=== PATIENT | female | born 1965 | race Caucasian/White ===

== ENCOUNTER 2016-04-12 06:25 | Day surgery (SDC) | payer BC, MEDICARE ==
[2016-04-07 10:34] VITALS: BMI 38.1
--- NOTE | 2016-04-12 06:08 | P.GSHP ---
History of Present Illness H&P Date: 04/12/16 CHIEF COMPLAINT: Abdominal wall subcutaneous tumor, lower abdomen. HISTORY OF PRESENT ILLNESS: Geetha Ruffin is a 50-year-old female who comes in with a tumor of the lower abdomen for several months. She reports discomfort along the site and presents for excision. PAST MEDICAL HISTORY: Please see list. PAST SURGICAL HISTORY: Please see list. MEDICATIONS: Please see list. ALLERGIES: Please see list. SOCIAL HISTORY: No illicit drug use FAMILY HISTORY: No reports of Crohn disease or ulcerative colitis. REVIEW OF ORGAN SYSTEMS: CONSTITUTIONAL: No reports of fevers or chills. GI: Denies any blood in stools or constipation. PHYSICAL EXAM: VITAL SIGNS: Stable. ABDOMEN: Palpable lower abdominal tumor swelling noted. No palpable incisional hernias. GENERAL: Well-developed female in no acute distress. MUSCULOSKELETAL: No bilateral lower extremity edema. CARDIOVASCULAR: Regular rate and rhythm. Palpable 2+ pulses. HEENT: No scleral icterus. Extraocular movements grossly intact. Moist buccal mucosa. NECK: Supple without lymphadenopathy. CHEST: Unlabored respirations. Equal bilateral excursions. NEURO: No focal or lateralizing signs. Cranial nerves II to XII grossly intact. PSYCH: Appropriate affect. Alert and oriented to person, place, and time. ASSESSMENT: 1. Abdominal wall tumor. 2. Body mass index reduced from 62.5 to 38.1. 3. Status post sleeve gastrectomy. 4. Multiple sclerosis. 5. History of obstructive sleep apnea. 6. Status post massive weight loss of 155 pounds. 7. Adrenal insufficiency. PLAN: 1. Benefits and risks of abdominal wall tumor excision was described at length. Risks including bleeding, infection, need for further surgery, cosmetic deformity were reviewed. 2. DVT prophylaxis. 3. Antibiotic prophylaxis. 4. She has history of adrenal insufficiency and will continue with her corticosteroids. She is aware that additional corticosteroids may impair wound healing including increase risk for infection. Past Medical History Past Medical History: Asthma, CVA/TIA, Eye Disorder, Hyperlipidemia, Neurologic Disorder, Osteoarthritis (OA), Skin Disorder, Thyroid Disorder Additional Past Medical History / Comment(s): Sick sinus syndrome, MS, DDD, neuropathy, stroke 2002-slight left sided weakness, CHRONIC PAIN LOWER BACK, HIPS, LEGS, psoriasis to scalp and face, Meniere's Disease, can only see shadows rt eye, intermittent double vision left eye stated has "optic neuritis" , adrenal insufficiency. History of Any Multi-Drug Resistant Organisms: None Reported Past Surgical History: Bariatric Surgery, Cholecystectomy, Orthopedic Surgery, Pacemaker Additional Past Surgical History / Comment(s): Pin in ankle (removed), battery in pacemaker replaced 2009, LAPAROSCOPIC GASTRIC SLEEVE WITH LYSIS OF ADHESION, panniculectomy/ventral hernia repair. Past Anesthesia/Blood Transfusion Reactions: Motion Sickness Additional Past Anesthesia/Blood Transfusion Reaction / Comment(s): no hx blood transfusuion Type of Cardiac Device: Permanent Pacemaker Device Placement Date:: 2001 Past Psychological History: Anxiety, Depression Smoking Status: Never smoker Past Alcohol Use History: None Reported Past Drug Use History: None Reported - Past Family History Mother Family Medical History: Hypertension, Thyroid Disorder Daughter(s) Family Medical History: Deep Vein Thrombosis (DVT), Seizure Disorder Additional Family Medical History / Comment(s): crohn's disease Father History Unknown: Yes Family Medical History: Unable to Obtain Sister(s) Family Medical History: Hypertension Additional Family Medical History / Comment(s): prolonged QT syndrome,crohn's disease Brother(s) Family Medical History: Hypertension Son(s) Family Medical History: No Reported History Additional Family Medical History / Comment(s): ITP Medications and Allergies Home Medications Medication Instructions Recorded Confirmed Type Baclofen [Lioresal] 20 mg PO QID 11/01/13 04/07/16 History Levothyroxine Sodium [Synthroid] 50 mcg PO QAM 11/01/13 04/07/16 History Montelukast [Singulair] 10 mg PO HS 12/19/13 04/07/16 History Fluticasone Nasal [place] [Flonase 2 sprays EA NOSTRIL DAILY 02/14/15 04/07/16 History Nasal [place]] Melatonin 10 mg PO HS 02/14/15 04/07/16 History Multivitamins, Thera [Multivitamin] 1 tab PO DAILY 02/14/15 04/07/16 History rOPINIRole HCL [Requip] 0.25 mg PO BID@1200,2000 02/14/15 04/07/16 History Clopidogrel [Plavix] 75 mg PO DAILY 09/25/15 04/07/16 History Ranitidine HCl 150 mg PO BID 09/25/15 04/07/16 History oxyCODONE-APAP 10-325MG [Percocet 1 - 2 tab PO TID PRN 09/25/15 04/07/16 History 10-325 mg] Cetirizine HCl [Zyrtec] 10 mg PO DAILY 11/14/15 04/07/16 History Magnesium Oxide [Mag-Ox] 400 mg PO DAILY 11/14/15 04/07/16 History ALPRAZolam [Alprazolam] 0.5 mg PO TID 11/24/15 04/07/16 History DULoxetine HCL [Duloxetine HCl] 30 mg PO HS 11/24/15 04/07/16 History Vitamin A 10,000 unit PO HS 11/24/15 04/07/16 History fentaNYL [fentaNYL 50 MCG/HR] 1 patch TRANSDERM Q72H 11/24/15 04/07/16 History Biotin 1,000 mcg PO BID 12/06/15 04/07/16 History Ergocalciferol [Vitamin D2 50,000 unit PO SERRANO 12/06/15 04/07/16 History (DRISDOL)] Lactulose 10 gm PO DAILY 12/06/15 04/07/16 History Hydrocortisone [Cortef] 10 mg PO 1400 04/07/16 04/07/16 History Hydrocortisone [Cortef] 15 mg PO QAM 04/07/16 04/07/16 History Allergies Allergy/AdvReac Type Severity Reaction Status Date / Time amlodipine besylate Allergy Swelling Verified 04/07/16 10:05 [From Norvasc] glatiramer acetate Allergy HIGH Verified 04/07/16 10:05 [From Copaxone] FEVER. PSYCHOTIC EPISODE PER PT,MENINGITIS zolpidem tartrate Allergy FELT LIKE Verified 04/07/16 10:05 [From Ambien] SPIDERS CRAWLING ON HER SKIN vancomycin AdvReac Severe Hypotension Verified 04/07/16 11:21
[~2016-04-12 06:25] MED LIST: DEXAMETHASONE SOD PHOSPHATE 10 MG/ML 1 ML VIAL IV ONE; HEPARIN SODIUM,PORCINE 5,000 UNIT/ML 1 ML VIAL SQ ONE; LACTATED RINGERS 1,000 ML IV SCH; LIDOCAINE 1% 20 ML VIAL (10MG/ML) FOR IV START INTRADERMA PRN; ONDANSETRON 4 MG/2 ML VIAL IVP ONE; Pre Op ABX Message 1 EACH MISC MISCELLANE ONE; SCOPOLAMINE 1.5MG/72HR PATCH TRANSDERM ONE; ceFAZolin 2 GM in SODIUM CHLORIDE 0.9% 100 ML IVPB ONE
[2016-04-12] MEDS: BUPIVACAINE LIPOSOME/PF 1.3% 20 ML, BUPIVACAIN-EPI 0.5%-1:200,000 25 ML, SODIUM CHLORID... MISCELLANE ONE ×6 (07:11→07:48)
[2016-04-12 07:25] VITALS: RESP 16
[2016-04-12] MEDS ORDERED: LIDOCAINE 1% 20 ML VIAL (10MG/ML) FOR IV START INTRADERMA ONE (07:25)
[2016-04-12] MEDS ORDERED: HYDROCORTISONE SUCCINATE 100 MG/2 ML VIAL IV ONE (07:29)
[2016-04-12] MEDS ORDERED: ePHEDrine 50 MG/ML 1 ML AMP ONE (07:30)
[2016-04-12] MEDS ORDERED: LIDOCAINE 1% INJ 10MG/ML (20 ML MDV) ONE (07:30)
[2016-04-12] MEDS ORDERED: MIDAZOLAM 2 MG/2 ML VIAL ONE (07:30)
[2016-04-12] MEDS ORDERED: ESMOLOL 100 MG/10 ML VIAL ONE (07:30)
[2016-04-12] MEDS ORDERED: SUCCINYLCHOLINE CHLORIDE 100 MG/5 ML SYR IV ONE (07:30)
[2016-04-12] MEDS ORDERED: fentaNYL (PF) 50 MCG/ML 2 ML AMP ONE (07:30)
[2016-04-12] MEDS ORDERED: PROPOFOL 10 MG/ML 20 ML VIAL IV ONE (07:30)
[2016-04-12 07:33] LABS: Glucose,Whole Blood 77 mg/dL (75-99)
--- NOTE | 2016-04-12 08:49 | P.PCN ---
Date of Procedure: 04/12/16 Preoperative Diagnosis: Abdominal wall tumor, lower abdomen Postoperative Diagnosis: Same, 22 x 6 cm Procedure(s) Performed: Excision of lower abdominal wall tumor, complex closure of 22 x 6 cm defect abdominal wall Anesthesia: MARGIEA, local Surgeon: Mariama Amato Estimated Blood Loss (ml): 50 Pathology: other (Abdominal wall tumor 2) Condition: stable Disposition: same day Operative Findings: Abdominal wall tumor, subcutaneous excised with 22 x 6 cm defect closed with complex closure Plan - Discharge Summary New Discharge Prescriptions: Hydrocodone/Acetaminophen [[place] 5-325] 1 - 2 each PO Q6HR PRN #60 tab PRN Reason: Pain Discharge Medication List Baclofen [Lioresal] 20 mg PO QID 11/01/13 [History] Levothyroxine Sodium [Synthroid] 50 mcg PO QAM 11/01/13 [History] Montelukast [Singulair] 10 mg PO HS 12/19/13 [History] Fluticasone Nasal [place] [Flonase Nasal [place]] 2 sprays EA NOSTRIL DAILY [History] Melatonin 10 mg PO HS 02/14/15 [History] Multivitamins, Thera [Multivitamin] 1 tab PO DAILY 02/14/15 [History] rOPINIRole HCL [Requip] 0.25 mg PO BID@1200,2000 02/14/15 [History] Clopidogrel [Plavix] 75 mg PO DAILY 09/25/15 [History] Ranitidine HCl 150 mg PO BID 09/25/15 [History] oxyCODONE-APAP 10-325MG [Percocet 10-325 mg] 1 - 2 tab PO TID PRN 09/25/15 [ History] Cetirizine HCl [Zyrtec] 10 mg PO DAILY 11/14/15 [History] Magnesium Oxide [Mag-Ox] 400 mg PO DAILY 11/14/15 [History] ALPRAZolam [Alprazolam] 0.5 mg PO TID 11/24/15 [History] DULoxetine HCL [Duloxetine HCl] 30 mg PO HS 11/24/15 [History] Vitamin A 10,000 unit PO HS 11/24/15 [History] fentaNYL [fentaNYL 50 MCG/HR] 1 patch TRANSDERM Q72H 11/24/15 [History] Biotin 1,000 mcg PO BID 12/06/15 [History] Ergocalciferol [Vitamin D2 (DRISDOL)] 50,000 unit PO SERRANO 12/06/15 [History] Lactulose 10 gm PO DAILY 12/06/15 [History] Hydrocortisone [Cortef] 10 mg PO 1400 04/07/16 [History] Hydrocortisone [Cortef] 15 mg PO QAM 04/07/16 [History] Hydrocodone/Acetaminophen [[place] 5-325] 1 - 2 each PO Q6HR PRN #60 tab 04/12/16 [Rx] Follow up Appointment(s)/Referral(s): Mariama Aamto MD [STAFF PHYSICIAN] - 04/14/16 ([facility]) Patient Instructions/Handouts: Abdominal Binder (DC) Activity/Diet/Wound Care/Special Instructions: No lifting over pounds in 4 weeks. Please ambulate with hips flexed. Do not remove dressings. Sponge bath only. Abdominal binder at all times. Discharge Disposition: HOME SELF-CARE
[2016-04-12] MEDS ORDERED: ONDANSETRON 4 MG/2 ML VIAL IVP PRN (08:54)
[2016-04-12] MEDS ORDERED: HYDROcodone/APAP 5-325MG 1 EACH TAB PO PRN (08:54)
[2016-04-12] MEDS ORDERED: NALOXONE 0.4 MG/ML 1 ML VIAL IV PRN (08:54)
[2016-04-12 08:55] VITALS: TEMP 97
[2016-04-12] MEDS: HYDROmorphone 1 MG/ML 1 ML SYRINGE IVP PRN ×4 (09:12→10:03)
[2016-04-12 11:52] VITALS: BP 100/56; PULSE 60
--- NOTE | 2016-04-12 21:15 | OP ---
DATE OF SERVICE: 04/12/2016 SURGEON: FAVIO ALBRECHT MD ATTENDANT [facility] PREOPERATIVE DIAGNOSES: 1. Lower left abdominal wall tumor. 2. Lower left abdominal wall swelling. 3. Body mass index reduced from 62.5 to 38.1. 4. Status post sleeve gastrectomy. 5. Multiple sclerosis. 6. Status post massive weight loss of 155 pounds. 7. Adrenal insufficiency. POSTOPERATIVE DIAGNOSES: 1. Lower left abdominal wall tumor. 2. Lower left abdominal wall swelling. 3. Body mass index reduced from 62.5 to 38.1. 4. Status post sleeve gastrectomy. 5. Multiple sclerosis. 6. Status post massive weight loss of 155 pounds. 7. Adrenal insufficiency. 8. Complex defect abdominal wall defect, 22 x 6 cm, subcutaneous. OPERATION: 1. Excision of abdominal wall tumor, left lower abdomen. 2. Complex closure of abdominal wall defect 22 x 6 cm. ANESTHESIA: General with 85 mL Exparel with Sensorcaine, epinephrine, normal saline mixture. ESTIMATED BLOOD LOSS: 50 mL. SPECIMENS REMOVED: Abdominal wall tumor x2. COMPLICATIONS: None. OPERATIVE FINDINGS: 1. Subcutaneous abdominal wall tumor of the left lower abdomen excised to the fascia. 2. Complex wound closure with moderate undermining performed for 22 x 6-cm defect. INDICATIONS: Geetha Ruffin is a 50-year-old female who had developed several subcutaneous abdominal tumors of the left lower abdomen, which caused increased pain and swelling. She has sought surgical intervention. Benefits and risks of surgical intervention were described including cosmetic deformity, flap failure, recurrence and bleeding, infection. Informed consent was obtained. DESCRIPTION OF PROCEDURE: The patient was brought to the operating room, laid in supine position. After general induction, the abdomen had been prepped and draped in standard sterile fashion. She also received stress doses of hydrocortisone for underlying history of adrenal insufficiency. Prior to incision, a timeout protocol was confirmed with the surgical team regarding the patient's name, including procedures to be performed. Sequential compression devices were also placed for DVT prophylaxis. The left lower abdominal wall tumor, subcutaneous, was marked in the pre- anesthesia area with indelible marker. Next, the skin was localized widely using Exparel and normal saline mixture to minimize postoperative pain. A #10 blade was deepened to the subcutaneous tissue, incorporating the tumors. Next, for the deep subcutaneous tissue, the electro- Bovie cautery was used to excise the tumors. The subcutaneous tumors were found to be to the level of the fascia and excised in total and passed off for further pathological analysis. Next, for complete closure, the defect had moderate undermining. Using 0 Vicryl for the deep dermis, including the superficial fascial system, 0 Vicryls were placed. Additional 0 Vicryl was placed for the deep dermis for complete closure of the defect. Next, 3-0 Monocryl in a running subcuticular fashion was placed. A final layer and 4th layer using Dermabond tape and Dermabond liquid was applied. The patient was placed in flexed position of 30 degrees to allow for complete closure of the defect as well. The skin was cleansed. Once the Dermabond had dried, Aquacel Ag tape was placed. An abdominal binder was also placed. The patient had tolerated the procedure well. The patient is transferred onto a stretcher with abdominal binder placed and in flexed position at the hips. At the end of the procedure, needle, sponge and instrument count was verified correct. The patient had tolerated the procedure well. Intraoperative findings were discussed with the patient's family who were pleased with level of care. CELI
== END 2016-04-12 12:22 | disposition home or self-care (01) ==
LOC: OR 06:25
PROVIDERS: ATTEND Surgery Plastic and Reconstructive Surgery
DX: M79.89 Other specified soft tissue disorders (principal); Z98.84 Bariatric surgery status; J45.909 Unspecified asthma, uncomplicated; M19.90 Unspecified osteoarthritis, unspecified site; E07.9 Disorder of thyroid, unspecified; G35 Multiple sclerosis; G62.9 Polyneuropathy, unspecified; G89.29 Other chronic pain; M54.5 Low back pain; M25.559 Pain in unspecified hip; M79.606 Pain in leg, unspecified; E27.40 Unspecified adrenocortical insufficiency; H81.09 Meniere's disease, unspecified ear; I69.854 Hemiplegia and hemiparesis following other cerebrovascular disease affecting left non-dominant side; Z95.0 Presence of cardiac pacemaker; I49.5 Sick sinus syndrome; K21.9 Gastro-esophageal reflux disease without esophagitis; Z79.02 Long term (current) use of antithrombotics/antiplatelets; Z79.891 Long term (current) use of opiate analgesic; Z79.51 Long term (current) use of inhaled steroids; Z79.52 Long term (current) use of systemic steroids; Z79.899 Other long term (current) drug therapy; Z88.1 Allergy status to other antibiotic agents; Z88.8 Allergy status to other drugs, medicaments and biological substances
CPT/HCPCS: 13101; 13102 ×3; 81025; 88305; J2250; J1644; J1100; J1720; J0690; J2405; J2001; J3010; J1170; J0330; C9290; J2704

== ENCOUNTER → 2016-04-14 | Outpatient (CLI) | payer MEDICARE ==
[2016-04-14 15:45] VITALS: BP 130/81; PULSE 71; RESP 16; TEMP 97.9; BMI 39.3
--- NOTE | 2016-04-18 17:36 | P.PN ---
Progress Note - Text DATE OF SERVICE: 04/14/2016 CHIEF COMPLAINT: Followup excision of neoplasm of the skin. HISTORY OF PRESENT ILLNESS: Geetha Ruffin is a 50-year-old female with significant history of panniculectomy performed on 01/07/2014. She is over 2 years out. For her height of 5 feet 5 inches, her ideal body is 149 pounds. Her highest weight was 375 pounds. Today she comes in with a 16- pound weight gain in 2 months, up to 236 pounds. Her total lifetime weight loss is 139 pounds. Percent excess weight loss is 62%. Body mass index has been reduced from 62.5 to 39.3. Total BMI point reduction is 23.2. She just recently had excision of a neoplasm along the left lower abdomen and pelvis. No reports of fevers or chills. She does take steroids for her history of adrenal insufficiency. Her pain is well controlled. She is more concerned about her weight gain, as she has been started on chronic doses of steroids. PHYSICAL EXAM: VITAL SIGNS: 97.9, 71, 16, 130/81, 5 feet 5 inches, 236 pounds. Body mass index 39.3. GENERAL: Well-developed female no acute distress. ABDOMEN: Incisional dressing was discontinued. No signs of flap failure, infection or cellulitis. Dermabond tape was still intact. Abdominal binder was repositioned and placed. MUSCULOSKELETAL: No bilateral lower extremity edema. CARDIOVASCULAR: Regular rate and rhythm. Palpable 2+ pulses. HEENT: No scleral icterus. Extraocular movements grossly intact. Moist buccal mucosa. NECK: Supple without lymphadenopathy. CHEST: Unlabored respirations. Equal bilateral excursions. NEURO: No focal or lateralizing signs. Cranial nerves II to XII grossly intact. PSYCH: Appropriate affect. Alert and oriented to person, place, and time. ASSESSMENT: 1. Neoplasm along the skin, now resolved. 2. Morbid obesity due to excess caloric intake. 3. Body mass index reduced from 62.5 to 39.3. 4. Status post sleeve gastrectomy. 5. Multiple sclerosis. 6. Status post massive weight loss of 139 pounds. 7. Adrenal insufficiency. PLAN: 1. Her pathology report came back consistent with nodular lesions of the area of neoplasm. No signs of malignancy were identified. 2. As she is at high risk, I have recommended that she continue to wear her abdominal binder at all times and followup at least on a weekly basis until complete healing. 3. As for her Dermabond tape, this will be discontinued at least 2 to 3 weeks postoperatively. She demonstrated understanding.
== END | disposition home or self-care (01) ==
LOC: BARWHC3 13:55
PROVIDERS: ATTEND Surgery Plastic and Reconstructive Surgery
DX: Z48.815 Encounter for surgical aftercare following surgery on the digestive system (principal); E66.01 Morbid (severe) obesity due to excess calories; Z68.39 Body mass index [BMI] 39.0-39.9, adult; Z98.84 Bariatric surgery status; G35 Multiple sclerosis; E27.40 Unspecified adrenocortical insufficiency; Z86.03 Personal history of neoplasm of uncertain behavior
CPT/HCPCS: 99211

== ENCOUNTER → 2016-12-20 | Outpatient (CLI) | payer MEDICARE | END | disposition home or self-care (01) | LOC: LABWHC1 09:49 | PROVIDERS: ATTEND Internal Medicine Endocrinology, Diabetes & Metabolism | DX: E03.9 Hypothyroidism, unspecified (principal); E27.40 Unspecified adrenocortical insufficiency | CPT/HCPCS: 36415; 82533; 84443 ==

== ENCOUNTER 2017-06-14 11:21 | Emergency (ER) | payer MEDICARE ==
[2017-06-14 11:25] VITALS: BP 125/70; PULSE 85; RESP 18; TEMP 97.9
[2017-06-14] MEDS ORDERED: KETOROLAC 60 MG/2 ML VIAL IM STA (11:52)
--- NOTE | 2017-06-14 11:54 | ED ---
Back Pain HPI - General Chief Complaint: Back Pain/Injury Stated Complaint: Fall-Back Injury Time Seen by Provider: 06/14/17 11:43 Source: patient, RN notes reviewed Mode of arrival: ambulatory Limitations: no limitations - History of Present Illness Initial Comments: This is a pleasant 51-year-old female presents emergency department complaining of low back pain. Patient tripped over her cat litter box last night and then fell onto her backside. Patient complaining of pain in the L4 to L5 area of the lumbar spine. Pain is exacerbated by movement, sharp in nature, no radicular pain. No symptoms of saddle anesthesia. No loss of bowel or bladder control. No recent other trauma or recent procedures. No fever or chills. Patient denies any other injuries. There is no head or neck injury. No abdominal pain. No chest pain or shortness of breath. No preceding symptoms. Patient does suffer from multiple medical problems to include MS as well as chronic pain. Patient is in chronic pain management with Percocet and Duragesic patches. MD Complaint: back pain, fall Onset/Timin -: days(s) Similar Symptoms Previously: Yes Place: home Radiation: none Severity: severe Severity scale (1-10): 9 Quality: sharp Consistency: constant Improves With: immobilization Worsens With: movement, walking Context: trauma Associated Symptoms: denies other symptoms Treatments Prior to Arrival: prescription analgesics - Related Data Home Medications Medication Instructions Recorded Confirmed Baclofen [Lioresal] 20 mg PO QID 11/01/13 04/15/16 Levothyroxine Sodium [Synthroid] 50 mcg PO QAM 11/01/13 04/15/16 Montelukast [Singulair] 10 mg PO 12/19/13 04/15/16 Fluticasone Nasal [place] [Flonase 2 sprays EA NOSTRIL DAILY 02/14/15 04/15/16 Nasal [place]] Melatonin 10 mg PO HS 02/14/15 04/15/16 Multivitamins, Thera [Multivitamin 1 tab PO DAILY 02/14/15 04/15/16 (formulary)] rOPINIRole HCL [Requip] 0.25 mg PO BID@1200,2000 02/14/15 04/15/16 Clopidogrel [Plavix] 75 mg PO DAILY 09/25/15 04/15/16 Ranitidine HCl 150 mg PO BID 09/25/15 04/15/16 oxyCODONE-APAP 10-325MG [Percocet 1 - 2 tab PO TID PRN 09/25/15 04/15/16 10-325 mg] Cetirizine HCl [Zyrtec] 10 mg PO DAILY 11/14/15 04/15/16 Magnesium Oxide [Mag-Ox] 400 mg PO DAILY 11/14/15 04/15/16 ALPRAZolam [Alprazolam] 0.5 mg PO TID 11/24/15 04/15/16 DULoxetine HCL [Duloxetine HCl] 30 mg PO HS 11/24/15 04/15/16 Vitamin A 10,000 unit PO HS 11/24/15 04/15/16 fentaNYL [fentaNYL 50 MCG/HR] 1 patch TRANSDERM Q72H 11/24/15 04/15/16 Biotin 1,000 mcg PO BID 12/06/15 04/15/16 Ergocalciferol [Vitamin D2 50,000 unit PO SERRANO 12/06/15 04/15/16 (DRISDOL)] Lactulose 10 gm PO DAILY 12/06/15 04/15/16 Hydrocortisone [Cortef] 10 mg PO 1400 04/07/16 04/15/16 Hydrocortisone [Cortef] 15 mg PO QAM 04/07/16 04/15/16 Allergies Allergy/AdvReac Type Severity Reaction Status Date / Time amlodipine besylate Allergy Swelling Verified 04/15/16 08:33 [From Norvasc] glatiramer acetate Allergy HIGH Verified 04/15/16 08:33 [From Copaxone] FEVER. PSYCHOTIC EPISODE PER PT,MENINGITIS zolpidem tartrate Allergy FELT LIKE Verified 04/15/16 08:33 [From Ambien] SPIDERS CRAWLING ON HER SKIN vancomycin AdvReac Severe Hypotension Verified 04/15/16 08:33 Review of Systems ROS Statement: Those systems with pertinent positive or pertinent negative responses have been documented in the HPI. ROS Other: All systems not noted in ROS Statement are negative. Past Medical History Past Medical History: Asthma, CVA/TIA, Eye Disorder, Hyperlipidemia, Neurologic Disorder, Osteoarthritis (OA), Skin Disorder, Thyroid Disorder Additional Past Medical History / Comment(s): Sick sinus syndrome, MS, DDD, neuropathy, stroke 2002-slight left sided weakness, CHRONIC PAIN LOWER BACK, HIPS, LEGS, psoriasis to scalp and face, Meniere's Disease, can only see shadows rt eye, intermittent double vision left eye stated has "optic neuritis" , adrenal insufficiency. History of Any Multi-Drug Resistant Organisms: None Reported Past Surgical History: Bariatric Surgery, Cholecystectomy, Orthopedic Surgery, Pacemaker Additional Past Surgical History / Comment(s): Pin in ankle (removed), battery in pacemaker replaced 2009, LAPAROSCOPIC GASTRIC SLEEVE WITH LYSIS OF ADHESION, panniculectomy/ventral hernia repair, chronic back pain Past Anesthesia/Blood Transfusion Reactions: Motion Sickness Additional Past Anesthesia/Blood Transfusion Reaction / Comment(s): no hx blood transfusuion Type of Cardiac Device: Permanent Pacemaker Device Placement Date:: 2001 Past Psychological History: Anxiety, Depression Smoking Status: Never smoker Past Alcohol Use History: None Reported Past Drug Use History: None Reported Additional History: Past medical, surgical history reviewed. - Past Family History Mother Family Medical History: Hypertension, Thyroid Disorder Daughter(s) Family Medical History: Deep Vein Thrombosis (DVT), Seizure Disorder Additional Family Medical History / Comment(s): crohn's disease Father History Unknown: Yes Family Medical History: Unable to Obtain Sister(s) Family Medical History: Hypertension Additional Family Medical History / Comment(s): prolonged QT syndrome,crohn's disease Brother(s) Family Medical History: Hypertension Son(s) Family Medical History: No Reported History Additional Family Medical History / Comment(s): ITP General Exam - General Exam Comments Initial Comments: This is an obese 51-year-old female in moderate distress due to low back pain, patient appears well otherwise. Limitations: no limitations General appearance: alert, in no apparent distress Head exam: Present: atraumatic, normocephalic, normal inspection Eye exam: Present: normal appearance, PERRL, EOMI. Absent: scleral icterus, conjunctival injection, periorbital swelling ENT exam: Present: normal exam, mucous membranes moist Neck exam: Present: normal inspection. Absent: tenderness, meningismus, lymphadenopathy Respiratory exam: Present: normal lung sounds bilaterally. Absent: respiratory distress, wheezes, rales, rhonchi, stridor Cardiovascular Exam: Present: regular rate, normal rhythm, normal heart sounds. Absent: systolic murmur, diastolic murmur, rubs, gallop, clicks GI/Abdominal exam: Present: soft, normal bowel sounds. Absent: distended, tenderness, guarding, rebound, rigid Extremities exam: Present: normal inspection, full ROM, normal capillary refill. Absent: tenderness, pedal edema, joint swelling, calf tenderness Back exam: Present: normal inspection, tenderness (L4 to L5 area, no crepitus or step-off. No bruising), paraspinal tenderness. Absent: full ROM, CVA tenderness (R), CVA tenderness (L), muscle spasm, vertebral tenderness (No definite midline tenderness), rash noted Neurological exam: Present: alert, oriented X3, CN II-XII intact Psychiatric exam: Present: normal affect, normal mood Skin exam: Present: warm, dry, intact, normal color. Absent: rash Course Vital Signs 06/14/17 11:24 Temperature 97.9 F Pulse Rate 85 Respiratory 18 Rate Blood Pressure 125/70 O2 Sat by Pulse 96 Oximetry Medical Decision Making - Medical Decision Making Vital signs and nursing notes reviewed, plain film x-rays lumbar spine, 3 view read by me reveals no evidence of acute pathology. No evidence of fracture or osseous lesion. Awaiting radiology interpretation. Patient appears have an isolated low back injury which is exacerbated her chronic pain. Patient will be given Toradol as well as a morphine injection here. Patient has pain medicine at home and was told to follow-up with her pain management physician for further care. Return and follow-up parameters discussed. Case discussed with the ER attending physician. Disposition Clinical Impression: Mechanical back pain, Contusion of lower back, Strain of lumbar region Disposition: HOME SELF-CARE Condition: Stable Instructions: Acute Low Back Pain (ED), Chronic Back Pain (ED) Additional Instructions: Return to the ER at once if the symptoms worsen or problems or difficulties arise. Further pain management through your pain management physician. Referrals: Suresh Doty MD [Primary Care Provider] - 1-2 days Time of Disposition: 12:19
[2017-06-14] MEDS ORDERED: MORPHINE SULFATE 4 MG/ML SYRINGE IM STA (12:12)
--- NOTE | 2017-06-14 12:14 | XR ---
EXAMINATION TYPE: XR lumbar spine 2 or 3V DATE OF EXAM: 06/14/2017 COMPARISON: NONE HISTORY: 51 year-old female chronic low back pain radiating into the left leg, fall today TECHNIQUE: 3 views FINDINGS: Vertebral body heights are preserved and alignment is maintained. Facet arthropathy mid to lower lumb ar spine. Somewhat short appearance to the pedicles in the lower lumbar spine could reflect underlyin g congenital spinal canal stenosis. There is mild degenerative disc interspace narrowing at L5-S1. Al ignment is maintained. IMPRESSION: 1. No vertebral compression collapse or malalignment. 2. Facet arthropathy mid to lower lumbar spine and mild to moderate degenerative disc disease L5-S1.
== END 2017-06-14 13:00 | disposition home or self-care (01) ==
LOC: EC 11:21
DX: S39.012A Strain of muscle, fascia and tendon of lower back, initial encounter (principal); J45.909 Unspecified asthma, uncomplicated; E78.5 Hyperlipidemia, unspecified; E07.9 Disorder of thyroid, unspecified; I49.5 Sick sinus syndrome; G35 Multiple sclerosis; G62.9 Polyneuropathy, unspecified; L40.9 Psoriasis, unspecified; F41.9 Anxiety disorder, unspecified; F32.9 Major depressive disorder, single episode, unspecified; Z86.73 Personal history of transient ischemic attack (TIA), and cerebral infarction without residual deficits; Z98.84 Bariatric surgery status; Z98.890 Other specified postprocedural states; Z79.02 Long term (current) use of antithrombotics/antiplatelets; Z79.51 Long term (current) use of inhaled steroids; Z79.52 Long term (current) use of systemic steroids; Z79.891 Long term (current) use of opiate analgesic; Z79.899 Other long term (current) drug therapy; Z88.1 Allergy status to other antibiotic agents; Z88.8 Allergy status to other drugs, medicaments and biological substances; W01.0XXA Fall on same level from slipping, tripping and stumbling without subsequent striking against object, initial encounter
CPT/HCPCS: 72100; 99283; 96372 ×2; J2270; J1885

== ENCOUNTER 2017-07-23 20:57 | Emergency (ER) | payer MEDICARE ==
[2017-07-23 21:37] VITALS: TEMP 97.6
--- NOTE | 2017-07-23 23:25 | ED ---
Fall HPI - General Chief Complaint: Fall Stated Complaint: Fall/facial injury Time Seen by Provider: 07/23/17 23:00 Source: patient Mode of arrival: wheelchair - History of Present Illness Initial Comments: 59-year-old female patient with past medical history significant for multiple sclerosis and CVA with left-sided deficits presents to the emergency department today for evaluation after experiencing a fall. Patient states that around 8 PM she tripped over her left leg and fell forward landing on her face. Patient states that she did have some epistaxis after the fall but was able to get the bleeding under control. Patient states that she takes Plavix for history of CVA. Patient is complaining of facial pain particularly her nose and right arm pain after the fall. Patient states that she is currently in the midst of a multiple sclerosis exacerbation and has received IV steroids daily for the last week. Patient states that she does have left leg weakness usually which she believes contributed to her fall. Patient states that she has had 9 falls over the last 2 weeks. Patient states that she has been extremely fatigued over the last 3 days. She denies any current headache, dizziness, blurred vision, double vision, numbness, or tingling. She denies any chest pain, shortness of breath, abdominal pain, nausea, vomiting, hematuria, dysuria, urinary frequency , urinary urgency. She denies any constipation or diarrhea. - Related Data Home Medications Medication Instructions Recorded Confirmed Baclofen [Lioresal] 20 mg PO QID 11/01/13 04/15/16 Levothyroxine Sodium [Synthroid] 50 mcg PO QAM 11/01/13 04/15/16 Montelukast [Singulair] 10 mg PO HS 12/19/13 04/15/16 Fluticasone Nasal [place] [Flonase 2 sprays EA NOSTRIL DAILY 02/14/15 04/15/16 Nasal [place]] Melatonin 10 mg PO HS 02/14/15 04/15/16 Multivitamins, Thera [Multivitamin 1 tab PO DAILY 02/14/15 04/15/16 (formulary)] rOPINIRole HCL [Requip] 0.25 mg PO BID@1200,2000 02/14/15 04/15/16 Clopidogrel [Plavix] 75 mg PO DAILY 09/25/15 04/15/16 Ranitidine HCl 150 mg PO BID 09/25/15 04/15/16 oxyCODONE-APAP 10-325MG [Percocet 1 - 2 tab PO TID PRN 09/25/15 04/15/16 10-325 mg] Cetirizine HCl [Zyrtec] 10 mg PO DAILY 11/14/15 04/15/16 Magnesium Oxide [Mag-Ox] 400 mg PO DAILY 11/14/15 04/15/16 ALPRAZolam [Alprazolam] 0.5 mg PO TID 11/24/15 04/15/16 DULoxetine HCL [Duloxetine HCl] 30 mg PO HS 11/24/15 04/15/16 Vitamin A 10,000 unit PO HS 11/24/15 04/15/16 fentaNYL [fentaNYL 50 MCG/HR] 1 patch TRANSDERM Q72H 11/24/15 04/15/16 Biotin 1,000 mcg PO BID 12/06/15 04/15/16 Ergocalciferol [Vitamin D2 50,000 unit PO SERRANO 12/06/15 04/15/16 (DRISDOL)] Lactulose 10 gm PO DAILY 12/06/15 04/15/16 Hydrocortisone [Cortef] 10 mg PO 1400 04/07/16 04/15/16 Hydrocortisone [Cortef] 15 mg PO QAM 04/07/16 04/15/16 Previous Rx's Medication Instructions Recorded Sulfamethoxazole/Trimethoprim 1 each PO BID #14 tablet 07/24/17 [Bactrim DS 800-160 mg] Allergies Allergy/AdvReac Type Severity Reaction Status Date / Time amlodipine besylate Allergy Swelling Verified 07/23/17 21:37 [From Norvasc] glatiramer acetate Allergy HIGH Verified 07/23/17 21:37 [From Copaxone] FEVER. PSYCHOTIC EPISODE PER PT,MENINGITIS zolpidem tartrate Allergy FELT LIKE Verified 07/23/17 21:37 [From Ambien] SPIDERS CRAWLING ON HER SKIN vancomycin AdvReac Severe Hypotension Verified 07/23/17 21:37 Review of Systems ROS Statement: Those systems with pertinent positive or pertinent negative responses have been documented in the HPI. ROS Other: All systems not noted in ROS Statement are negative. Past Medical History Past Medical History: Asthma, CVA/TIA, Eye Disorder, Hyperlipidemia, Neurologic Disorder, Osteoarthritis (OA), Skin Disorder, Thyroid Disorder Additional Past Medical History / Comment(s): Sick sinus syndrome, MS, DDD, neuropathy, stroke 2003-slight left sided weakness, CHRONIC PAIN LOWER BACK, HIPS, LEGS, psoriasis to scalp and face, Meniere's Disease, can only see shadows rt eye, intermittent double vision left eye stated has "optic neuritis" , adrenal insufficiency. History of Any Multi-Drug Resistant Organisms: None Reported Past Surgical History: Bariatric Surgery, Cholecystectomy, Orthopedic Surgery, Pacemaker Additional Past Surgical History / Comment(s): Pin in ankle (removed), battery in pacemaker replaced 2009, LAPAROSCOPIC GASTRIC SLEEVE WITH LYSIS OF ADHESION, panniculectomy/ventral hernia repair, chronic back pain Past Anesthesia/Blood Transfusion Reactions: Motion Sickness Additional Past Anesthesia/Blood Transfusion Reaction / Comment(s): no hx blood transfusuion Type of Cardiac Device: Permanent Pacemaker Device Placement Date:: 2001 Past Psychological History: Anxiety, Depression Smoking Status: Never smoker Past Alcohol Use History: None Reported Past Drug Use History: None Reported - Past Family History Mother Family Medical History: Hypertension, Thyroid Disorder Daughter(s) Family Medical History: Deep Vein Thrombosis (DVT), Seizure Disorder Additional Family Medical History / Comment(s): crohn's disease Father History Unknown: Yes Family Medical History: Unable to Obtain Sister(s) Family Medical History: Hypertension Additional Family Medical History / Comment(s): prolonged QT syndrome,crohn's disease Brother(s) Family Medical History: Hypertension Son(s) Family Medical History: No Reported History Additional Family Medical History / Comment(s): ITP General Exam Limitations: no limitations General appearance: alert, in no apparent distress, other (This is a well- developed, obese adult female patient in no acute distress. Vital signs upon presentation are temperature 97.6F, pulse 63, respirations 18, blood pressure 117/61, pulse ox 98% on room air.) Head exam: Present: atraumatic, normocephalic, normal inspection Eye exam: Present: normal appearance, PERRL, EOMI. Absent: scleral icterus, conjunctival injection, nystagmus, periorbital swelling ENT exam: Present: normal exam, normal oropharynx, mucous membranes moist, other (Patient has ecchymosis, swelling, and tenderness noted over the nasal bridge. No current nasal bleeding noted. No evidence of septal hematoma.) Neck exam: Present: normal inspection, full ROM, other (Nontender, no step-off, no deformity to firm midline palpation of the posterior cervical spine. Full range of motion without pain or limitation.). Absent: tenderness, meningismus, lymphadenopathy Respiratory exam: Present: normal lung sounds bilaterally. Absent: respiratory distress, wheezes, rales, rhonchi, stridor Cardiovascular Exam: Present: regular rate, normal rhythm, normal heart sounds. Absent: systolic murmur, diastolic murmur, rubs, gallop, clicks GI/Abdominal exam: Present: soft, normal bowel sounds. Absent: distended, tenderness, guarding, rebound, rigid Extremities exam: Present: normal inspection, full ROM (Patient has full range of motion to the right shoulder, right elbow, and right wrist. Patient has increased pain with flexion of the right elbow. Patient's tenderness over the elbow.), normal capillary refill, other (Skin to the bilateral upper and lower extremities is pink, warm, and dry. Cap refills less than 3 seconds. Radial pulses 2+ and equal bilaterally. Pedal pulses 2+ and equal bilaterally.). Absent: tenderness, pedal edema, joint swelling, calf tenderness Back exam: Present: normal inspection, other (Nontender, no step-off, no deformity to firm midline palpation of the thoracic and lumbar vertebrae. Full range of motion without pain or limitation.). Absent: vertebral tenderness Neurological exam: Present: alert, oriented X3, CN II-XII intact Psychiatric exam: Present: normal affect, normal mood Skin exam: Present: warm, dry, intact, normal color. Absent: rash Course Vital Signs 07/23/17 07/24/17 21:34 03:18 Temperature 97.6 F Pulse Rate 63 68 Respiratory 18 20 Rate Blood Pressure 117/61 129/71 O2 Sat by Pulse 98 96 Oximetry Medical Decision Making - Medical Decision Making 51-year-old female patient presented to the emergency department today for evaluation after expressing a fall. Patient is experiencing weakness currently from her current MS exacerbation. Patient is being treated for this exacerbation outpatient by her neurologist. She just completed a weeks worth of outpatient steroids. Patient is also been experiencing fatigue over the last 3 days. Labs reviewed and were unremarkable area urinalysis was positive for urinary tract infection. We did send this for culture. CT of the brain and C-spine were negative for any acute process. CT facial bones is negative for any acute fractures. I did offer admission for MS exacerbation however patient requests to be discharged home as she would like to continue outpatient treatment as directed by her neurologist. We'll give her Bactrim for urinary tract infection. She is instructed to follow-up with her neurologist and her primary care physician for recheck in 1-2 days. Return parameters discussed in detail. She verbalizes understanding and agrees with this plan. - Lab Data Result diagrams: 07/24/17 00:26 07/24/17 00:26 Lab Results 07/24/17 07/24/17 07/24/17 Range/Units 00:26 00:26 00:26 WBC 8.1 (3.8-10.6) k/uL RBC 3.80 (3.80-5.40) m/uL Hgb 11.1 L (11.4-16.0) gm/dL Hct 33.8 L (34.0-46.0) % MCV 89.0 (80.0-100.0) fL MCH 29.2 (25.0-35.0) pg MCHC 32.9 (31.0-37.0) g/dL RDW 13.3 (11.5-15.5) % Plt Count 321 (150-450) k/uL Neutrophils % 59 % Lymphocytes % 32 % Monocytes % 7 % Eosinophils % 1 % Basophils % 0 % Neutrophils # 4.8 (1.3-7.7) k/uL Lymphocytes # 2.6 (1.0-4.8) k/uL Monocytes # 0.6 (0-1.0) k/uL Eosinophils # 0.0 (0-0.7) k/uL Basophils # 0.0 (0-0.2) k/uL PT (9.0-12.0) sec INR (<1.2) APTT (22.0-30.0) sec Sodium 144 (137-145) mmol/L Potassium 3.3 L (3.5-5.1) mmol/L Chloride 103 (98-107) mmol/L Carbon Dioxide 30 (22-30) mmol/L Anion Gap 11 mmol/L BUN 27 H (7-17) mg/dL Creatinine 0.80 (0.52-1.04) mg/dL Est GFR (CKD-EPI)AfAm >90 (>60 ml/min/1.73 sqM) Est GFR (CKD-EPI)NonAf 87 (>60 ml/min/1.73 sqM) Glucose 84 (74-99) mg/dL Calcium 9.0 (8.4-10.2) mg/dL Total Bilirubin 0.2 (0.2-1.3) mg/dL AST 35 (14-36) U/L ALT 41 (9-52) U/L Alkaline Phosphatase 71 (38-126) U/L Total Creatine Kinase 309 H (30-135) U/L CK-MB (CK-2) 3.4 H* (0.0-2.4) ng/mL CK-MB (CK-2) Rel Index 1.1 Total Protein 6.2 L (6.3-8.2) g/dL Albumin 3.6 (3.5-5.0) g/dL Urine Color Urine Appearance (Clear) Urine pH (5.0-8.0) Ur Specific [place] (1.001-1.035) Urine Protein (Negative) Urine Glucose (UA) (Negative) Urine Ketones (Negative) Urine Blood (Negative) Urine Nitrite (Negative) Urine Bilirubin (Negative) Urine Urobilinogen (<2.0) mg/dL Ur Leukocyte Esterase (Negative) Urine RBC (0-5) /hpf Urine WBC (0-5) /hpf Ur Squamous Epith Cells (0-4) /hpf Urine Bacteria (None) /hpf Hyaline Casts (0-2) /lpf Urine Mucus (None) /hpf 07/24/17 07/24/17 Range/Units 00:26 01:21 WBC (3.8-10.6) k/uL RBC (3.80-5.40) m/uL Hgb (11.4-16.0) gm/dL Hct (34.0-46.0) % MCV (80.0-100.0) fL MCH (25.0-35.0) pg MCHC (31.0-37.0) g/dL RDW (11.5-15.5) % Plt Count (150-450) k/uL Neutrophils % % Lymphocytes % % Monocytes % % Eosinophils % % Basophils % % Neutrophils # (1.3-7.7) k/uL Lymphocytes # (1.0-4.8) k/uL Monocytes # (0-1.0) k/uL Eosinophils # (0-0.7) k/uL Basophils # (0-0.2) k/uL PT 10.7 (9.0-12.0) sec INR 1.1 (<1.2) APTT 21.2 L (22.0-30.0) sec Sodium (137-145) mmol/L Potassium (3.5-5.1) mmol/L Chloride (98-107) mmol/L Carbon Dioxide (22-30) mmol/L Anion Gap mmol/L BUN (7-17) mg/dL Creatinine (0.52-1.04) mg/dL Est GFR (CKD-EPI)AfAm (>60 ml/min/1.73 sqM) Est GFR (CKD-EPI)NonAf (>60 ml/min/1.73 sqM) Glucose (74-99) mg/dL Calcium (8.4-10.2) mg/dL Total Bilirubin (0.2-1.3) mg/dL AST (14-36) U/L ALT (9-52) U/L Alkaline Phosphatase (38-126) U/L Total Creatine Kinase (30-135) U/L CK-MB (CK-2) (0.0-2.4) ng/mL CK-MB (CK-2) Rel Index Total Protein (6.3-8.2) g/dL Albumin (3.5-5.0) g/dL Urine Color Yellow Urine Appearance Clear (Clear) Urine pH 6.0 (5.0-8.0) Ur Specific [place] 1.032 (1.001-1.035) Urine Protein Trace H (Negative) Urine Glucose (UA) Negative (Negative) Urine Ketones Trace H (Negative) Urine Blood Negative (Negative) Urine Nitrite Negative (Negative) Urine Bilirubin Negative (Negative) Urine Urobilinogen 2.0 (<2.0) mg/dL Ur Leukocyte Esterase Large H (Negative) Urine RBC 1 (0-5) /hpf Urine WBC 24 H (0-5) /hpf Ur Squamous Epith Cells <1 (0-4) /hpf Urine Bacteria Rare H (None) /hpf Hyaline Casts 12 H (0-2) /lpf Urine Mucus Few H (None) /hpf - EKG Data -: EKG Interpreted by Me EKG Comments: EKG obtained at 00 27 shows atrial paced rhythm with prolonged AV conduction. Ventricular rate is 66, LA interval 212, QR shinto 90, QT 440, QTC 461. - Radiology Data Radiology results: report reviewed, image reviewed CT of the head and C-spine are performed without contrast. Ventricles are of normal size. There is no mass effect or midline shift. There is no sign of intracranial hemorrhage. The calvarium is intact. Cervical vertebra abnormal spacing alignment. Posterior elements are intact. Facet joints appear normal. Skull base is intact. Impression by Dr. Zelaya shows negative computed tomography scan of the brain. Negative computed tomography scan of the cervical spine. CT facial bones without contrast were obtained. Report was reviewed in its entirety. Normal computed tomography scan of the facial bones. No fracture. 3 views of the right elbow are obtained. No fracture nor dislocation evident. Joint spaces are normal. There is no sign of elbow joint effusion. Impression by Dr. Zelaya shows normal right elbow. Disposition Clinical Impression: Urinary tract infection, Exacerbation of multiple sclerosis, Facial contusion Disposition: HOME SELF-CARE Condition: Good Instructions: Urinary Tract Infection in Women (ED), Head Injury (ED), Facial Contusion (ED) Additional Instructions: Complete antibiotic prescription in full. Follow-up with your primary care physician for recheck in 1-2 days. Have repeat x-ray performed in 7-10 days if pain symptoms persist. Return here immediately for any new, worsening, or concerning symptoms. Prescriptions: Sulfamethoxazole/Trimethoprim [Bactrim DS 800-160 mg] 1 each PO BID #14 tablet Is patient prescribed a controlled substance at d/c from ED?: No Referrals: Suresh Doty MD [Primary Care Provider] - 1-2 days Time of Disposition: 03:02
[2017-07-24 00:39] LABS: Basophils % (A) 0 %; Eosinophils % (A) 1 %; HCT 33.8 % (34.0-46.0); HGB 11.1 gm/dL (11.4-16.0); Lymphocytes # (A) 2.6 k/uL (1.0-4.8); Lymphocytes % (A) 32 %; MCH 29.2 pg (25.0-35.0); MCHC 32.9 g/dL (31.0-37.0); Monocytes # (A) 0.6 k/uL (0-1.0); Monocytes % (A) 7 %; Neutrophils # (A) 4.8 k/uL (1.3-7.7); Neutrophils % (A) 59 %; Platelet Count 321 k/uL (150-450); RDW 13.3 % (11.5-15.5); WBC 8.1 k/uL (3.8-10.6)
[2017-07-24 00:51] LABS: ALT 41 U/L (9-52); AST 35 U/L (14-36); Albumin 3.6 g/dL (3.5-5.0); Alkaline Phosphatase 71 U/L (38-126); Anion Gap 11 mmol/L; Blood Urea Nitrogen 27 mg/dL (7-17); Carbon Dioxide 30 mmol/L (22-30); Chloride 103 mmol/L (98-107); Glucose 84 mg/dL (74-99); Potassium 3.3 mmol/L (3.5-5.1); Sodium 144 mmol/L (137-145); Total Bilirubin 0.2 mg/dL (0.2-1.3); Total Protein 6.2 g/dL (6.3-8.2)
[2017-07-24 01:07] LABS: INR 1.1 (<1.2); Prothrombin Time 10.7 sec (9.0-12.0)
[2017-07-24 01:13] LABS: Partial Thromboplastin Time 21.2 sec (22.0-30.0)
[2017-07-24 01:27] LABS: Creatine Kinase MB 3.4 ng/mL (0.0-2.4)
[2017-07-24 01:39] LABS: Appearance,Urine Clear (Clear); Bacteria,Urine Rare /hpf; Bilirubin,Urine Negative (Negative); Blood,Urine Negative (Negative); Color,Urine Yellow; Glucose,Urine (UA) Negative (Negative); Hyaline Casts,Urine 12 /lpf (0-2); Ketones,Urine Trace (Negative); Leukocyte Esterase,Urine Large (Negative); Mucus,Urine Few /hpf; Nitrite,Urine Negative (Negative); Protein,Urine Trace (Negative); RBC,Urine 1 /hpf (0-5); Specific Gravity,Urine 1.032 (1.001-1.035); Squamous Epithelial Cell,Urine <1 /hpf (0-4); WBC,Urine 24 /hpf (0-5)
--- NOTE | 2017-07-24 01:46 | CT ---
EXAMINATION TYPE: CT brain charlieine wo con DATE OF EXAM: 07/24/2017 COMPARISON: CT brain 07/16/2015 HISTORY: Hx. of MS; pt. fell head first CT DLP: 2115.70 mGycm Automated exposure control for dose reduction was used. TECHNIQUE: CT scan of the head and cervical spine are performed without contrast. FINDINGS: Ventricles of normal size. There is no mass effect nor midline shift. There is no sign of intracranial hemorrhage. The calvarium is intact. Cervical vertebra have normal spacing and alignment. Posterior elements are intact. Facet joints appe ar normal. Skull base is intact. IMPRESSION: Negative CT scan of the brain. Negative CT scan of the cervical spine.
--- NOTE | 2017-07-24 02:02 | CT ---
EXAMINATION TYPE: CT facial bones wo con DATE OF EXAM: 07/24/2017 COMPARISON: NONE HISTORY: hx. of MS; pt. fell head first CT DLP: 2115.70 mGycm Automated exposure control for dose reduction was used. TECHNIQUE: CT scan of the sinuses is performed without contrast, axial images are obtained, coronal r eformatted images are also reviewed. FINDINGS: Orbital margins are intact. There is no evidence of a blowout fracture. The mandibular ring appears intact. The maxilla is intact. Zygomatic arches appear normal. Nasal bone appears intact. Th ere is fairly normal aeration of the paranasal sinuses. There is bilateral patency of the ostiomeatal complex. The globes are symmetric. There is no evidence of orbital mass. IMPRESSION: Normal CT scan of the facial bones. No fracture.
--- NOTE | 2017-07-24 02:03 | XR ---
EXAMINATION TYPE: XR elbow complete RT DATE OF EXAM: 07/24/2017 COMPARISON: NONE HISTORY: Elbow pain TECHNIQUE: 3 views FINDINGS: I see no fracture nor dislocation. Joint spaces are normal. There is no sign of elbow joint effusion. IMPRESSION: Normal right elbow.
[2017-07-24] MEDS ORDERED: SULFAMETH-TMP DS STARTER PACK 2 TAB BTL PO STA (03:00)
[2017-07-24 03:18] VITALS: BP 129/71; PULSE 68; RESP 20
== END 2017-07-24 03:26 | disposition home or self-care (01) ==
LOC: EC 20:57
DX: S00.83XA Contusion of other part of head, initial encounter (principal); G35 Multiple sclerosis; N39.0 Urinary tract infection, site not specified; J45.909 Unspecified asthma, uncomplicated; E78.5 Hyperlipidemia, unspecified; M19.90 Unspecified osteoarthritis, unspecified site; E07.9 Disorder of thyroid, unspecified; F32.9 Major depressive disorder, single episode, unspecified; F41.9 Anxiety disorder, unspecified; Z79.51 Long term (current) use of inhaled steroids; Z79.01 Long term (current) use of anticoagulants; Z79.891 Long term (current) use of opiate analgesic; Z79.899 Other long term (current) drug therapy; Z88.1 Allergy status to other antibiotic agents; Z88.8 Allergy status to other drugs, medicaments and biological substances; W01.0XXA Fall on same level from slipping, tripping and stumbling without subsequent striking against object, initial encounter; Y92.89 Other specified places as the place of occurrence of the external cause
CPT/HCPCS: 36415; 70450; 70486; 72125; 80053; 81001; 82550; 82553; 85025; 85610; 85730; 93005; 99284

== ENCOUNTER → 2017-07-26 | Outpatient (CLI) | payer MEDICARE ==
--- NOTE | 2017-07-26 22:39 | CT ---
EXAMINATION TYPE: CT brain wo/w con DATE OF EXAM: 07/26/2017 COMPARISON: 07/24/2017 HISTORY: 51-year-old female multiple recent falls. History of MS TECHNIQUE: Examination was done in axial plane before and after intravenous contrast. 100 mL Isovue- 300 IV contrast was administered. Coronal and sagittal reconstructions performed. CT DLP: 2267 mGycm Automated exposure control for dose reduction was used. FINDINGS: There is no evidence of acute intracranial hemorrhage, acute ischemic changes, mass, mass-effect, or extra-axial fluid collection. There is no effacement of cerebral sulci or basal subarachnoid cister ns. There is no hydrocephalus. There is no midline shift. [place]-white matter distinction is preserv ed. Incidental empty sella. No enhancing intracranial lesions. Dural venous sinuses are patent. Orbits and globes are intact. Paranasal sinuses and mastoid air cells are well pneumatized. IMPRESSION: No acute intracranial abnormality or enhancing intracranial lesions seen.
== END | disposition home or self-care (01) ==
LOC: RADCTMAIN 14:04
PROVIDERS: ATTEND Psychiatry & Neurology Neurology
DX: G35 Multiple sclerosis (principal); Z88.1 Allergy status to other antibiotic agents; Z88.8 Allergy status to other drugs, medicaments and biological substances
CPT/HCPCS: 70470; Q9967

== ENCOUNTER → 2017-08-02 | Outpatient (CLI) | payer MEDICARE ==
--- NOTE | 2017-08-02 15:38 | XR ---
EXAMINATION TYPE: XR elbow complete RT DATE OF EXAM: 08/02/2017 CLINICAL HISTORY: pain TECHNIQUE: Frontal, lateral and oblique images of the right elbow are obtained. COMPARISON: None. FINDINGS: There is no acute fracture/dislocation evident of the elbow. No abnormal fat pad signs ar e seen. The overlying soft tissue appears unremarkable. IMPRESSION: There is no acute fracture or dislocation of the elbow. ICD 10 NO FRACTURE, INITIAL EVALUATION
--- NOTE | 2017-08-02 15:38 | XR ---
EXAMINATION TYPE: XR forearm RT DATE OF EXAM: 08/02/2017 CLINICAL HISTORY: pain TECHNIQUE: Frontal and lateral images of the right forearm are obtained. COMPARISON: None. FINDINGS: There is no acute fracture/dislocation evident. The joint spaces appear within normal limi ts. The overlying soft tissue appears unremarkable. IMPRESSION: There is no acute fracture or dislocation. ICD 10 NO FRACTURE, INITIAL EVALUATION
--- NOTE | 2017-08-02 15:39 | XR ---
EXAMINATION TYPE: XR humerus RT DATE OF EXAM: 08/02/2017 CLINICAL HISTORY: pain COMPARISON: NONE TECHNIQUE: Frontal and lateral images of the right humerus are obtained. FINDINGS: There is no acute fracture/dislocation evident. The joint spaces appear within normal limi ts. The overlying soft tissue appears unremarkable. IMPRESSION: There is no acute fracture or dislocation.ICD 10 NO FRACTURE, INITIAL EVALUATION
== END | disposition home or self-care (01) ==
LOC: RADXRMAIN 15:04
PROVIDERS: ATTEND Family Medicine
DX: M25.521 Pain in right elbow (principal); M79.601 Pain in right arm

== ENCOUNTER → 2017-08-09 | Outpatient (CLI) | payer MEDICARE ==
[2017-08-09 10:14] LABS: Basophils % (A) 1 %; Eosinophils # (A) 0.4 k/uL (0-0.7); Eosinophils % (A) 6 %; HCT 37.3 % (34.0-46.0); HGB 11.7 gm/dL (11.4-16.0); Lymphocytes # (A) 1.3 k/uL (1.0-4.8); Lymphocytes % (A) 21 %; MCH 29.1 pg (25.0-35.0); MCHC 31.3 g/dL (31.0-37.0); MCV 93.2 fL (80.0-100.0); Mean Platelet Volume 6.4; Monocytes # (A) 0.5 k/uL (0-1.0); Monocytes % (A) 7 %; Neutrophils # (A) 4.2 k/uL (1.3-7.7); Neutrophils % (A) 64 %; Platelet Count 292 k/uL (150-450); RBC 4.01 m/uL (3.80-5.40); RDW 13.7 % (11.5-15.5); WBC 6.5 k/uL (3.8-10.6)
[2017-08-09 11:27] LABS: ALT 39 U/L (9-52); AST 35 U/L (14-36); Alkaline Phosphatase 78 U/L (38-126); Anion Gap 14 mmol/L; Blood Urea Nitrogen 20 mg/dL (7-17); Calcium 9.4 mg/dL (8.4-10.2); Carbon Dioxide 28 mmol/L (22-30); Chloride 104 mmol/L (98-107); Glucose 109 mg/dL (74-99); Potassium 3.8 mmol/L (3.5-5.1); Sodium 146 mmol/L (137-145); Total Bilirubin 0.3 mg/dL (0.2-1.3); Total Protein 6.7 g/dL (6.3-8.2)
[2017-08-09 11:40] LABS: T4, Free (Free Thyroxine) 0.89 ng/dL (0.78-2.19)
[2017-08-09 17:29] LABS: Vitamin D 25 Hydroxy 20.6 ng/mL (30.0-100.0)
[2017-08-09 19:44] LABS: ACTH 7.3 pg/mL (0.00-45.99)
== END | disposition home or self-care (01) ==
LOC: LABWHC1 09:13
PROVIDERS: ATTEND Internal Medicine Endocrinology, Diabetes & Metabolism
DX: E55.9 Vitamin D deficiency, unspecified (principal); G35 Multiple sclerosis; E27.3 Drug-induced adrenocortical insufficiency; E03.8 Other specified hypothyroidism
CPT/HCPCS: 36415; 80053; 82024; 82306; 82533; 82607; 84439; 84443; 84481; 85025

== ENCOUNTER → 2017-10-05 | Day surgery (SDC) | payer MEDICARE ==
[2017-09-30 12:03] VITALS: BMI 42.9
[~2017-10-05] MED LIST changes: +ACETAMINOPHEN TAB 325 MG TAB PO PRN; -DEXAMETHASONE SOD PHOSPHATE 10 MG/ML 1 ML VIAL IV ONE; -HEPARIN SODIUM,PORCINE 5,000 UNIT/ML 1 ML VIAL SQ ONE; +HYDROcodone/APAP 5-325MG 1 EACH TAB PO PRN; -LACTATED RINGERS 1,000 ML IV SCH; +LIDOCAINE 1% (PF) 10MG/ML VIAL SQ ONE; -LIDOCAINE 1% 20 ML VIAL (10MG/ML) FOR IV START INTRADERMA PRN; +LIDOCAINE 1% INJ 10MG/ML (20 ML MDV) ONE; +MIDAZOLAM 2 MG/2 ML VIAL IVP ONE; +MIDAZOLAM 2 MG/2 ML VIAL ONE; -ONDANSETRON 4 MG/2 ML VIAL IVP ONE; -Pre Op ABX Message 1 EACH MISC MISCELLANE ONE; -SCOPOLAMINE 1.5MG/72HR PATCH TRANSDERM ONE; +SODIUM CHLORIDE 0.9% 1,000 ML IV SCH; +ceFAZolin 1,000 MG in SODIUM CHLORIDE 0.9% IRRIGATIO 1,000 ML IRRIGATION ONE; +ceFAZolin 1,000 MG in SODIUM CHLORIDE 0.9% IRRIGATIO 250 ML IRRIGATION ONE; -ceFAZolin 2 GM in SODIUM CHLORIDE 0.9% 100 ML IVPB ONE; +ceFAZolin 2,000 MG in DEXTROSE/WATER 1 50ML.BAG IVPB STA; +ceFAZolin IN SWFI 2 GM/20 ML SYRINGE IVP ONE; +fentaNYL (PF) 50 MCG/ML 2 ML AMP IVP ONE; +fentaNYL (PF) 50 MCG/ML 2 ML AMP ONE
[2017-10-05 11:31] VITALS: TEMP 98.1
[2017-10-05 12:01] LABS: Basophils % (A) 0 %; Eosinophils # (A) 0.1 k/uL (0-0.7); Eosinophils % (A) 2 %; HCT 37.2 % (34.0-46.0); Lymphocytes # (A) 1.5 k/uL (1.0-4.8); Lymphocytes % (A) 27 %; MCH 29.2 pg (25.0-35.0); MCHC 32.1 g/dL (31.0-37.0); MCV 91.1 fL (80.0-100.0); Mean Platelet Volume 6.3; Monocytes # (A) 0.3 k/uL (0-1.0); Monocytes % (A) 5 %; Neutrophils # (A) 3.6 k/uL (1.3-7.7); Neutrophils % (A) 63 %; Platelet Count 295 k/uL (150-450); RBC 4.09 m/uL (3.80-5.40); WBC 5.7 k/uL (3.8-10.6)
[2017-10-05 12:14] LABS: Anion Gap 9 mmol/L; Blood Urea Nitrogen 19 mg/dL (7-17); Calcium 9.3 mg/dL (8.4-10.2); Carbon Dioxide 27 mmol/L (22-30); Chloride 104 mmol/L (98-107); Glucose 84 mg/dL (74-99); Potassium 4.2 mmol/L (3.5-5.1); Sodium 140 mmol/L (137-145)
--- NOTE | 2017-10-05 13:06 | P.PCN ---
Date of Procedure: 10/05/17 Preoperative Diagnosis: History of permanent pacemaker implantation, battery depletion Postoperative Diagnosis: Battery depletion Procedure(s) Performed: Generator change Description of Procedure: HISTORY: This is a 51-year-old female with history of permanent pacemaker implantation was found to have evidence of battery depletion. Patient is brought in for elective replacement. CONSENT: I have discussed the risks and benefits as related to the above mentioned procedure and both sedation/analgesia as well as necessary blood product administration. The patient has indicated understanding and acceptance of the risks of the procedure discussed. PROCEDURE: Patient was brought to the lab in a fasting state. Patient was given IV Versed and fentanyl for sedation. The skin over the existing pulse generator was infiltrated with lidocaine. An incision was made in the skin and was deepened until the pectoral fascia was exposed. Hemostasis was obtained. The existing pulse generator was pulled out of the pocket. The leads were disconnected and were checked for thresholds. Conscious Sedation: Versed 1 mg Fentanyl 50 g Duration 30 minutes THRESHOLDS: ATRIAL: The minimum pacing threshold is 0.5 at pulse width of 0.5 ms. The impedance is 490 ohms P-wave: 1.8 mV VENTRICULAR: Minimum pacing threshold is 0.5 V at pulse width of 0.5 ms. The impedance is 400 6002 ohms. R-wave: 0.9 THE LEADS: ATRIAL: This is manufactured by [employer]. Model number is 4478. Serial number is [id number] VENTRICULAR: This is manufactured by [employer]. Model number is 4457. The serial number is [id number] THE EXPLANTED DEVICE: This is manufactured by [employer]. Model number is [id number] and the serial number is [id number] THE NEW DEVICE: This is manufactured by [employer]. Model number is [id number] and the serial number is [id number]. The leads were then connected to a new pulse generator. Pacemaker seems to function normally. The pocket was irrigated with antibiotics. The pocket was closed in the usual fashion. Pectoral fascia was closed with 2-0 Prolene, the subcutaneous tissue was closed with 3-0 Prolene and the skin was closed with 4- 0 Prolene. Patient tolerated the procedure well . Patient will be monitored on the telemetry unit for 2-3 hours. If stable patient be discharged home later today. PLAN: Patient will monitored for the next 3 hours. If stable patient be discharged home. Patient will continue prophylactic antibiotic. She will keep the incision dry until seen in the office in one week. FALLOW UP: With Dr. Deshpande in one week.
[2017-10-05 15:24] VITALS: BP 115/62; PULSE 59; RESP 18
== END | disposition home or self-care (01) ==
LOC: CATHEP 10:55
PROVIDERS: ATTEND Internal Medicine Cardiovascular Disease
DX: Z45.09 Encounter for adjustment and management of other cardiac device (principal); I48.0 Paroxysmal atrial fibrillation; I10 Essential (primary) hypertension; G35 Multiple sclerosis; E27.5 Adrenomedullary hyperfunction; Z79.02 Long term (current) use of antithrombotics/antiplatelets; Z79.82 Long term (current) use of aspirin; Z79.899 Other long term (current) drug therapy; Z79.52 Long term (current) use of systemic steroids; Z79.891 Long term (current) use of opiate analgesic; Z88.1 Allergy status to other antibiotic agents; Z88.8 Allergy status to other drugs, medicaments and biological substances
CPT/HCPCS: 33228; 80048; 85025; C1785; J2250; J0690 ×2; J3010; J2001

== ENCOUNTER → 2017-12-29 | Outpatient (CLI) | payer MEDICARE ==
[2017-12-29 16:27] LABS: Basophils # (A) 0.1 k/uL (0-0.2); Basophils % (A) 1 %; Eosinophils # (A) 0.1 k/uL (0-0.7); Eosinophils % (A) 1 %; HCT 40.4 % (34.0-46.0); HGB 12.6 gm/dL (11.4-16.0); Hypochromasia Slight; Lymphocytes # (A) 1.1 k/uL (1.0-4.8); Lymphocytes % (A) 13 %; MCH 28.5 pg (25.0-35.0); MCV 91.9 fL (80.0-100.0); Mean Platelet Volume 6.9; Monocytes # (A) 0.4 k/uL (0-1.0); Monocytes % (A) 5 %; Neutrophils # (A) 6.7 k/uL (1.3-7.7); Neutrophils % (A) 80 %; Platelet Count 301 k/uL (150-450); WBC 8.4 k/uL (3.8-10.6)
[2017-12-30 02:24] LABS: Vitamin D 25 Hydroxy 24.4 ng/mL (30.0-100.0)
[2017-12-30 02:33] LABS: Albumin 4.3 g/dL (3.80-4.90); Albumin/Globulin Ratio 1.95 (1.20-2.10); Anion Gap 10.3 mmol/L (4.00-12.00); Calcium 9.3 mg/dL (8.7-10.3); Carbon Dioxide 30.7 mmol/L (21.6-31.8); Globulin 2.2 g/dL (2.1-3.7); Potassium 4.3 mmol/L (3.5-5.5); Total Bilirubin 0.2 mg/dL (0.2-1.2); Total Protein 6.5 g/dL (6.2-8.2)
[2017-12-30 04:30] LABS: Hepatitis B Core IgM Non-Reactive (Non-Reactive); Hepatitis B Surface AB- Quant 3.5 mIU/mL
== END | disposition home or self-care (01) ==
LOC: LABWHC1 15:25
PROVIDERS: ATTEND Nurse Practitioner Acute Care
DX: E55.9 Vitamin D deficiency, unspecified (principal); G35 Multiple sclerosis
CPT/HCPCS: 36415; 80053; 82306; 85025; 86704; 86705; 86706; 86787; 87340; 87798

== ENCOUNTER 2018-03-18 15:41 | Emergency (ER) | payer MEDICARE ==
[2018-03-18 15:49] VITALS: RESP 18; TEMP 97.8
[2018-03-18] MEDS ORDERED: ACETAMINOPHEN TAB 500 MG TAB PO STA (16:45)
--- NOTE | 2018-03-18 16:55 | ED ---
General Adult HPI - General Chief complaint: Back Pain/Injury Stated complaint: Sharp Pain in Back down arm Time Seen by Provider: 03/18/18 16:34 Source: patient, family, RN notes reviewed, old records reviewed Mode of arrival: ambulatory Limitations: no limitations - History of Present Illness Initial comments: Chief complaint and history of present illness this is a 52-year-old female with a complaint of not feeling well lately. Patient reports had occasional on- again off-again discomfort in the left scapular region that comes around towards the left tricep area and the left flank area. The pain lasts for several seconds to a minute or 2. It comes and goes throughout the last several days. Currently pain-free patient has a known history of MS - Related Data Home Medications Medication Instructions Recorded Confirmed Baclofen [Lioresal] 20 mg PO Q6H 11/01/13 03/18/18 Levothyroxine Sodium [Synthroid] 50 mcg PO QAM 11/01/13 03/18/18 Montelukast [Singulair] 10 mg PO 12/19/13 03/18/18 Melatonin 10 mg PO 02/14/15 03/18/18 Multivitamins, Thera [Multivitamin 1 tab PO DAILY 02/14/15 03/18/18 (formulary)] rOPINIRole HCL [Requip] 0.25 mg PO BID@1400,2000 02/14/15 03/18/18 Clopidogrel [Plavix] 75 mg PO DAILY 09/25/15 03/18/18 Ranitidine HCl 150 mg PO BID 09/25/15 03/18/18 Magnesium Oxide [Mag-Ox] 400 mg PO DAILY 11/14/15 03/18/18 Vitamin A 10,000 unit PO 11/24/15 03/18/18 fentaNYL [fentaNYL 50 MCG/HR] 1 patch TRANSDERM Q72H 11/24/15 03/18/18 Hydrocortisone [Cortef] 5 mg PO DAILY@1500 04/07/16 03/18/18 Hydrocortisone [Cortef] 10 mg PO QAM 04/07/16 03/18/18 Aspirin [Adult Low Dose Aspirin EC] 81 mg PO DAILY 09/30/17 03/18/18 oxyCODONE-APAP 7.5-325MG [Percocet 1 tab PO BID PRN 09/30/17 03/18/18 7.5-325 mg] Calcium Carbonate/Vitamin D3 1 tab PO BID 03/18/18 03/18/18 [Calcium 600-Vit D3 400 Caplet] DULoxetine HCL [Cymbalta] 60 mg PO HS 03/18/18 03/18/18 Docusate Sodium [Dok] 100 mg PO DAILY 03/18/18 03/18/18 Gabapentin [Neurontin] 600 mg PO Q6H 03/18/18 03/18/18 hydrOXYzine HCL [Atarax] 25 mg PO Q6H PRN 03/18/18 03/18/18 Previous Rx's Medication Instructions Recorded methylPREDNISolone Dose Pack 4 mg PO DIRECTED #21 package 03/18/18 [Medrol Dose Pack] Allergies Allergy/AdvReac Type Severity Reaction Status Date / Time amlodipine besylate Allergy Swelling Verified 03/18/18 17:26 [From Norvasc] glatiramer acetate Allergy HIGH Verified 03/18/18 17:26 [From Copaxone] FEVER. PSYCHOTIC EPISODE PER PT,MENINGITIS zolpidem tartrate Allergy FELT LIKE Verified 03/18/18 17:26 [From Ambien] SPIDERS CRAWLING ON HER SKIN vancomycin AdvReac Severe Hypotension Verified 03/18/18 17:26 Review of Systems ROS Statement: Those systems with pertinent positive or pertinent negative responses have been documented in the HPI. Review of systems. No headache or visual acuity changes no stiff neck. Currently no chest pain or shortness of breath denies any GI/ problems. Patient hasn't had a stroke in the past affecting the left side she uses crutches to ambulate but is recovered significantly from the previous stroke. Chief complaint as noted. Past medical problems significant for hypertension, asthma, CVA, I disorder associated with MS. MS as noted above, GERD, hyperlipidemia and osteoarthritis. Eczema, sleep apnea, hypothyroidism. The patient has chronically slow heart rate for which she has a permanent pacemaker. Patient's also had bariatric surgery, cholecystectomy, hernia repair, ankle surgery. Also aseptic necrosis hips. Family history no cancers. Patient has ALLERGIES to amlodipine, glatiramer, zolpidem, vancomycin, . Denies smoking denies drinking. ROS Other: All systems not noted in ROS Statement are negative. Past Medical History Past Medical History: Asthma, CVA/TIA, Eye Disorder, GERD/Reflux, Hyperlipidemia , Hypertension, Neurologic Disorder, Osteoarthritis (OA), Skin Disorder, Sleep Apnea/CPAP/BIPAP, Thyroid Disorder Additional Past Medical History / Comment(s): SSS. GUID[employer] PACEMAKER. MS, RELAPSE SINCE 07/2017. DDD, Neuropathy ARMS/LEGS. Stroke 2002-sl lt sided weakness; SEV TIA'S. HX KIDNEY STONES. CHRONIC PAIN LOWER BACK, HIPS, LEGS. HX Psoriasis. Meniere's Disease. Sees shadows rt eye, intermittent double vision lt eye, "optic neuritis.' Adrenal insufficiency. SEE H&P. History of Any Multi-Drug Resistant Organisms: None Reported Past Surgical History: Bariatric Surgery, Cholecystectomy, Hernia Repair, Orthopedic Surgery, Pacemaker Additional Past Surgical History / Comment(s): ORIF LT ANKLE; Pin removed). Battery Pacemaker replaced 2009, LAPAROSCOPIC GASTRIC SLEEVE WITH LYSIS OF ADHESIONS. Panniculectomy/Ventral hernia repair - REVISION PANNICULECTOMY. Past Anesthesia/Blood Transfusion Reactions: Motion Sickness Additional Past Anesthesia/Blood Transfusion Reaction / Comment(s): no hx blood transfusuion Type of Cardiac Device: Permanent Pacemaker Device Placement Date:: 2001 Past Psychological History: Anxiety, Depression Smoking Status: Never smoker - Past Family History Mother Family Medical History: Hypertension, Thyroid Disorder Daughter(s) Family Medical History: Deep Vein Thrombosis (DVT), Seizure Disorder Additional Family Medical History / Comment(s): crohn's disease Father History Unknown: Yes Family Medical History: Unable to Obtain Sister(s) Family Medical History: Hypertension Additional Family Medical History / Comment(s): prolonged QT syndrome,crohn's disease Brother(s) Family Medical History: Hypertension Son(s) Family Medical History: No Reported History Additional Family Medical History / Comment(s): ITP General Exam - General Exam Comments Initial Comments: General: The patient is awake and alert, in no distress, here because of on-again off- again discomfort that goes from the left scapula to the left tricep area and across the back. The pain lasts for a second or less sometimes a minute or more. Currently pain-free. Vital signs temperature 97.8 Eye: Pupils are equal, round and reactive to light, extra-ocular movements are intact ; there is normal conjunctiva bilaterally. No signs of icterus. Ears, nose, mouth and throat: There are moist mucous membranes and no oral lesions. Neck: The neck is supple, there is no tenderness or JVD. Cardiovascular: There is a regular rate and rhythm. No murmur, rub or gallop is appreciated. Respiratory: Lungs are clear to auscultation, respirations are non-labored, breath sounds are equal. No wheezes, stridor, rales, or rhonchi. Gastrointestinal: Soft, non-distended, no complaint of abdominal discomfort. Back: There is no tenderness to palpation in the midline. There is no obvious deformity. No rashes noted. Musculoskeletal: Complains of on-again off-again discomfort the left scapular region and the left tricep area. Full range of motion at this time. No rashes noted. No bruises noted. No pain with movement twisting or turning at this time. She does state that occasionally a deep breath decreased her discomfort. Neurovascular status to the hands intact. Past history includes having had a CVA that affected the left side. She reports she has rehabbed to significant improvement but she does use crutches for rales. Neurological: History of MS with occasional flares. Patient states they're altering medications because of her current flare. She thinks her discomfort to her scapula and arm could be part of this flare. She denies any new neuro deficits as compared to the past. She did have a stroke in the past as noted above Speech is normal. Skin: Skin is warm and dry and no rashes or lesions are noted. Psychiatric: Cooperative, appropriate mood & affect, normal judgment. Limitations: no limitations Course Vital Signs 03/18/18 15:47 Temperature 97.8 F Pulse Rate 65 Respiratory 18 Rate Blood Pressure 109/59 O2 Sat by Pulse 98 Oximetry EKG Findings - EKG Comments: EKG Findings:: EKG was done and reviewed at 1709 showing rate of 61 atrial paced. No other interpretation needed. Patient does have a pacemaker. Medical Decision Making - Medical Decision Making Medical decision making; this is a 52-year-old female with a complaint of discomfort from her left scapula that goes into the left tricep area on occasion the last several minutes or seconds only. No other associated problems. EKG is normal. Reproducible sometimes she takes deep breath. Chest x-ray reported by radiologist showing no acute cardiopulmonary process as read by Dr. Mesa. Labs show white count of 7 hemoglobin 12 hematocrit 39. Potassium 4.6 with a BUN of 18 creatinine 0.77 and GFR of 90. Glucose 87. CK is 55 troponin less than 0.012. The patient presents with discomfort on again off again the last from a second only several minutes to the left scapula and left tricep area. Patient reports he thinks it's more flare associated with her MS. At this time the patient agrees this replaced on a Medrol Dosepak and follow up with her neurologist. While in emergency room the patient was started on prednisone 20 mg po/ - Lab Data Result diagrams: 03/18/18 17:00 03/18/18 17:00 Lab Results 03/18/18 03/18/18 03/18/18 Range/Units 17:00 17:00 17:00 WBC 7.0 (3.8-10.6) k/uL RBC 4.35 (3.80-5.40) m/uL Hgb 12.3 (11.4-16.0) gm/dL Hct 39.0 (34.0-46.0) % MCV 89.6 (80.0-100.0) fL MCH 28.2 (25.0-35.0) pg MCHC 31.5 (31.0-37.0) g/dL RDW 12.8 (11.5-15.5) % Plt Count 312 (150-450) k/uL Neutrophils % 65 % Lymphocytes % 23 % Monocytes % 6 % Eosinophils % 3 % Basophils % 1 % Neutrophils # 4.6 (1.3-7.7) k/uL Lymphocytes # 1.6 (1.0-4.8) k/uL Monocytes # 0.4 (0-1.0) k/uL Eosinophils # 0.2 (0-0.7) k/uL Basophils # 0.0 (0-0.2) k/uL Sodium 140 (137-145) mmol/L Potassium 4.6 (3.5-5.1) mmol/L Chloride 105 (98-107) mmol/L Carbon Dioxide 30 (22-30) mmol/L Anion Gap 5 mmol/L BUN 18 H (7-17) mg/dL Creatinine 0.77 (0.52-1.04) mg/dL Est GFR (CKD-EPI)AfAm >90 (>60 ml/min/1.73 sqM) Est GFR (CKD-EPI)NonAf 90 (>60 ml/min/1.73 sqM) Glucose 87 (74-99) mg/dL Calcium 9.4 (8.4-10.2) mg/dL Total Bilirubin 0.5 (0.2-1.3) mg/dL AST 26 (14-36) U/L ALT 20 (9-52) U/L Alkaline Phosphatase 70 (38-126) U/L Total Creatine Kinase 55 (30-135) U/L CK-MB (CK-2) <0.2 (0.0-2.4) ng/mL CK-MB (CK-2) Rel Index Troponin I <0.012 (0.000-0.034) ng/mL Total Protein 7.1 (6.3-8.2) g/dL Albumin 3.9 (3.5-5.0) g/dL Disposition Clinical Impression: Late effect of musculoskeletal strain, History of multiple sclerosis Disposition: HOME SELF-CARE Condition: Fair Instructions: Multiple Sclerosis (DC), Musculoskeletal Pain (ED) Additional Instructions: Follow-up with your neurologist and family doctor. Take the Medrol Dosepak as directed. Use ibuprofen or Tylenol for discomfort. If there are any acute changes return emergency room immediately Prescriptions: methylPREDNISolone Dose Pack [Medrol Dose Pack] 4 mg PO DIRECTED #21 package Is patient prescribed a controlled substance at d/c from ED?: No Referrals: Suresh Doty MD [Primary Care Provider] - 1-2 days Time of Disposition: 18:02
[2018-03-18 17:16] LABS: Basophils % (A) 1 %; Eosinophils # (A) 0.2 k/uL (0-0.7); Eosinophils % (A) 3 %; HGB 12.3 gm/dL (11.4-16.0); Lymphocytes # (A) 1.6 k/uL (1.0-4.8); Lymphocytes % (A) 23 %; MCH 28.2 pg (25.0-35.0); MCHC 31.5 g/dL (31.0-37.0); MCV 89.6 fL (80.0-100.0); Mean Platelet Volume 6.1; Monocytes # (A) 0.4 k/uL (0-1.0); Monocytes % (A) 6 %; Neutrophils # (A) 4.6 k/uL (1.3-7.7); Neutrophils % (A) 65 %; Platelet Count 312 k/uL (150-450); RBC 4.35 m/uL (3.80-5.40); RDW 12.8 % (11.5-15.5)
[2018-03-18 17:33] LABS: ALT 20 U/L (9-52); AST 26 U/L (14-36); Albumin 3.9 g/dL (3.5-5.0); Alkaline Phosphatase 70 U/L (38-126); Anion Gap 5 mmol/L; Blood Urea Nitrogen 18 mg/dL (7-17); Calcium 9.4 mg/dL (8.4-10.2); Carbon Dioxide 30 mmol/L (22-30); Chloride 105 mmol/L (98-107); Glucose 87 mg/dL (74-99); Potassium 4.6 mmol/L (3.5-5.1); Sodium 140 mmol/L (137-145); Total Bilirubin 0.5 mg/dL (0.2-1.3); Total Protein 7.1 g/dL (6.3-8.2)
--- NOTE | 2018-03-18 17:33 | XR ---
EXAMINATION TYPE: XR chest 2V DATE OF EXAM: 03/18/2018 COMPARISON: NONE HISTORY: Chest pain TECHNIQUE: Frontal and lateral views of the chest are obtained. FINDINGS: There is no focal air space opacity, pleural effusion, or pneumothorax seen. The cardiac silhouette size is within normal limits. The osseous structures are intact. Generator is present in the left pectoral region, there are leads in the right atrium and ventricle. There are overlying car diac leads. IMPRESSION: No acute cardiopulmonary process.
[2018-03-18 17:37] LABS: Creatine Kinase 55 U/L (30-135)
[2018-03-18 17:48] LABS: Creatine Kinase MB <0.2 ng/mL (0.0-2.4); Troponin I <0.012 ng/mL (0.000-0.034)
[2018-03-18] MEDS ORDERED: predniSONE 20 MG TAB PO STA (18:00)
[2018-03-18 18:12] VITALS: BP 111/84; PULSE 67
== END 2018-03-18 18:22 | disposition home or self-care (01) ==
LOC: EC 15:41
DX: S46.312S Strain of muscle, fascia and tendon of triceps, left arm, sequela (principal); G35 Multiple sclerosis; J45.909 Unspecified asthma, uncomplicated; K21.9 Gastro-esophageal reflux disease without esophagitis; I10 Essential (primary) hypertension; M19.90 Unspecified osteoarthritis, unspecified site; E07.9 Disorder of thyroid, unspecified; G62.9 Polyneuropathy, unspecified; F41.9 Anxiety disorder, unspecified; F32.9 Major depressive disorder, single episode, unspecified; G47.30 Sleep apnea, unspecified; Z86.73 Personal history of transient ischemic attack (TIA), and cerebral infarction without residual deficits; Z95.0 Presence of cardiac pacemaker; Z79.02 Long term (current) use of antithrombotics/antiplatelets; Z79.891 Long term (current) use of opiate analgesic; Z79.52 Long term (current) use of systemic steroids; Z79.82 Long term (current) use of aspirin; Z79.899 Other long term (current) drug therapy; Z88.8 Allergy status to other drugs, medicaments and biological substances; Z88.1 Allergy status to other antibiotic agents; X58.XXXS Exposure to other specified factors, sequela
CPT/HCPCS: 36415; 93005; 80053; 82550; 82553; 84484; 85025; 71046; 99284; J7512

== ENCOUNTER → 2018-05-03 | Outpatient (CLI) | payer MEDICARE ==
[2018-05-03 13:17] LABS: Albumin 4.4 g/dL (3.80-4.90); Albumin/Globulin Ratio 1.76 (1.60-3.17); Anion Gap 7.7 mmol/L (4.00-12.00); Calcium 9.1 mg/dL (8.7-10.3); Carbon Dioxide 30.3 mmol/L (21.6-31.8); Globulin 2.5 g/dL (1.6-3.3); Potassium 4.7 mmol/L (3.5-5.5); Total Bilirubin 0.2 mg/dL (0.3-1.2); Total Protein 6.9 g/dL (6.2-8.2)
== END | disposition home or self-care (01) ==
LOC: LABWHC1 07:48
PROVIDERS: ATTEND Internal Medicine Endocrinology, Diabetes & Metabolism
DX: E27.3 Drug-induced adrenocortical insufficiency (principal); E03.8 Other specified hypothyroidism
CPT/HCPCS: 36415; 80053; 82024; 82533; 84443

== ENCOUNTER → 2018-09-04 | Outpatient (CLI) | payer MEDICARE ==
[2018-09-04 17:26] LABS: Basophils % (A) 1 %; Eosinophils # (A) 0.2 k/uL (0-0.7); Eosinophils % (A) 5 %; HCT 37.4 % (34.0-46.0); Lymphocytes # (A) 1.4 k/uL (1.0-4.8); Lymphocytes % (A) 31 %; MCH 28.7 pg (25.0-35.0); MCHC 32.2 g/dL (31.0-37.0); MCV 89.3 fL (80.0-100.0); Mean Platelet Volume 6.4; Monocytes # (A) 0.3 k/uL (0-1.0); Monocytes % (A) 7 %; Neutrophils # (A) 2.5 k/uL (1.3-7.7); Neutrophils % (A) 54 %; Platelet Count 310 k/uL (150-450); RBC 4.19 m/uL (3.80-5.40); RDW 13.3 % (11.5-15.5); WBC 4.6 k/uL (3.8-10.6)
[2018-09-05 01:37] LABS: African American GFR (CKD) 75.5 (60.0-200.0); Albumin 4.1 g/dL (3.80-4.90); Albumin/Globulin Ratio 1.86 (1.60-3.17); Anion Gap 9.2 mmol/L (4.00-12.00); Calcium 9.4 mg/dL (8.7-10.3); Carbon Dioxide 29.8 mmol/L (21.6-31.8); Globulin 2.2 g/dL (1.6-3.3); Potassium 5.1 mmol/L (3.5-5.5); Total Bilirubin 0.2 mg/dL (0.2-1.2); Total Protein 6.3 g/dL (6.2-8.2)
[2018-09-05 01:46] LABS: T4, Free (Free Thyroxine) 0.9 ng/dL (0.80-1.80)
[2018-09-05 02:01] LABS: ACTH 8.59 pg/mL (0.00-45.99)
== END | disposition home or self-care (01) ==
LOC: LABWHC1 16:23
PROVIDERS: ATTEND Nurse Practitioner Acute Care
DX: Z51.81 Encounter for therapeutic drug level monitoring (principal); E55.9 Vitamin D deficiency, unspecified; E27.3 Drug-induced adrenocortical insufficiency; E03.8 Other specified hypothyroidism; G35 Multiple sclerosis
CPT/HCPCS: 36415; 80053; 82024; 82306; 82533; 82607; 84207; 84439; 84443; 84481; 85025; 86787

== ENCOUNTER 2018-09-19 12:22 | Emergency (ER) | payer MEDICARE ==
[2018-09-19 12:36] VITALS: TEMP 98.1
--- NOTE | 2018-09-19 13:15 | XR ---
Left foot and left ankle HISTORY: Trauma and pain 3 views of the left foot and 3 views of the left ankle submitted. Bone mineralization, joint spaces and alignment are relatively maintained. There is some degenerative change at the metatarsophalangeal joint of the first digit. There is a plantar calcaneus spur, calci fication present at the insertion of the Achilles tendon and origin of the plantar aponeurosis. Soft tissue swelling noted at the ankle. IMPRESSION: No fracture or dislocation.
--- NOTE | 2018-09-19 13:38 | ED ---
General Adult HPI - General Chief complaint: Extremity Injury, Lower Stated complaint: MULTIPLE FALL, LEFT ANKLE INJURY Time Seen by Provider: 09/19/18 12:52 Source: patient, family, RN notes reviewed Mode of arrival: ambulatory Limitations: no limitations - History of Present Illness Initial comments: 52-year-old female presents to the emergency department for a chief complaint of left ankle pain. Patient states just prior to arrival her left leg gave out and she fell. Patient states she has frequent falls regularly due to multiple sclerosis. States she thinks she is starting a flare and has an appointment with her neurologist in one hour to have infusion of steroids. States she is here to evaluate the left ankle. Denies any knee pain. Does admit to some mild upper foot pain but can ambulate on this. Denies hitting her head. Denies any other injuries.Patient has no other complaints at this time including shortness of breath, chest pain, abdominal pain, nausea or vomiting, headache, or visual changes. - Related Data Home Medications Medication Instructions Recorded Confirmed Baclofen [Lioresal] 20 mg PO Q6H 11/01/13 03/18/18 Montelukast [Singulair] 10 mg PO HS 12/19/13 03/18/18 Melatonin 10 mg PO HS 02/14/15 03/18/18 Multivitamins, Thera [Multivitamin 1 tab PO DAILY 02/14/15 03/18/18 (formulary)] Clopidogrel [Plavix] 75 mg PO DAILY 09/25/15 03/18/18 Ranitidine HCl 150 mg PO BID 09/25/15 03/18/18 Magnesium Oxide [Mag-Ox] 400 mg PO DAILY 11/14/15 03/18/18 Vitamin A 10,000 unit PO HS 11/24/15 03/18/18 Calcium Carbonate/Vitamin D3 1 tab PO BID 03/18/18 03/18/18 [Calcium 600-Vit D3 400 Caplet] DULoxetine HCL [Cymbalta] 60 mg PO HS 03/18/18 03/18/18 Gabapentin [Neurontin] 600 mg PO Q6H 03/18/18 03/18/18 hydrOXYzine HCL [Atarax] 25 mg PO Q6H PRN 03/18/18 03/18/18 Aspirin EC [Ecotrin] 325 mg PO DAILY 09/19/18 09/19/18 Biotin 5 mg PO DAILY 09/19/18 09/19/18 Fludrocortisone [Florinef] 0.05 mg PO MOWEFR 09/19/18 09/19/18 Hydrocortisone [Cortef] 20 mg PO DAILY 09/19/18 09/19/18 Hydrocortisone [Cortef] 30 mg PO DAILY@1200 09/19/18 09/19/18 Ibuprofen [Motrin Ib] 200 mg PO Q6H 09/19/18 09/19/18 Levothyroxine Sodium [Synthroid] 50 mcg PO DAILY 09/19/18 09/19/18 Tylenol With Caffeine 500 mg PO DAILY PRN 09/19/18 09/19/18 Vitamin B Complex 1 cap PO DAILY 09/19/18 09/19/18 diphenhydrAMINE [Benadryl] 25 mg PO Q6H PRN 09/19/18 09/19/18 fentaNYL 25MCG/HR PATCH [Duragesic 25 mcg TRANSDERM Q72H 09/19/18 09/19/18 25MCG/HR] oxyCODONE-APAP 10-325MG [Percocet 1 tab PO Q12H PRN 09/19/18 09/19/18 10-325 mg] rOPINIRole HCL [Requip] 0.5 mg PO BID 09/19/18 09/19/18 Allergies Allergy/AdvReac Type Severity Reaction Status Date / Time amlodipine besylate Allergy Swelling Verified 09/19/18 13:25 [From Norvasc] glatiramer acetate Allergy HIGH Verified 09/19/18 13:25 [From Copaxone] FEVER. PSYCHOTIC EPISODE PER PT,MENINGITIS zolpidem tartrate Allergy FELT LIKE Verified 09/19/18 13:25 [From Ambien] SPIDERS CRAWLING ON HER SKIN vancomycin AdvReac Severe Hypotension Verified 09/19/18 13:25 Review of Systems ROS Statement: Those systems with pertinent positive or pertinent negative responses have been documented in the HPI. ROS Other: All systems not noted in ROS Statement are negative. Past Medical History Past Medical History: Asthma, CVA/TIA, Eye Disorder, GERD/Reflux, Hyperlipidemia, Hypertension, Neurologic Disorder, Osteoarthritis (OA), Skin Disorder, Sleep Apnea/CPAP/BIPAP, Thyroid Disorder Additional Past Medical History / Comment(s): SSS. G[employer] PACEMAKER. MS, RELAPSE SINCE 07/2017. DDD, Neuropathy ARMS/LEGS. Stroke 2003-sl lt sided weakness; SEV TIA'S. HX KIDNEY STONES. CHRONIC PAIN LOWER BACK, HIPS, LEGS. HX Psoriasis. Meniere's Disease. Sees shadows rt eye, intermittent double vision lt eye, "optic neuritis.' Adrenal insufficiency. SEE DR Roberts. History of Any Multi-Drug Resistant Organisms: None Reported Past Surgical History: Bariatric Surgery, Cholecystectomy, Hernia Repair, Orthopedic Surgery, Pacemaker Additional Past Surgical History / Comment(s): ORIF LT ANKLE; Pin removed). Battery Pacemaker replaced 2009, LAPAROSCOPIC GASTRIC SLEEVE WITH LYSIS OF ADHESIONS. Panniculectomy/Ventral hernia repair - REVISION PANNICULECTOMY. Past Anesthesia/Blood Transfusion Reactions: Motion Sickness Additional Past Anesthesia/Blood Transfusion Reaction / Comment(s): no hx blood transfusuion Type of Cardiac Device: Permanent Pacemaker Device Placement Date:: 2001 Past Psychological History: Anxiety, Depression Smoking Status: Never smoker Past Alcohol Use History: None Reported Past Drug Use History: None Reported - Past Family History Mother Family Medical History: Hypertension, Thyroid Disorder Daughter(s) Family Medical History: Deep Vein Thrombosis (DVT), Seizure Disorder Additional Family Medical History / Comment(s): crohn's disease Father History Unknown: Yes Family Medical History: Unable to Obtain Sister(s) Family Medical History: Hypertension Additional Family Medical History / Comment(s): prolonged QT syndrome,crohn's disease Brother(s) Family Medical History: Hypertension Son(s) Family Medical History: No Reported History Additional Family Medical History / Comment(s): ITP General Exam Limitations: no limitations General appearance: alert, in no apparent distress Head exam: Present: atraumatic, normocephalic, normal inspection Eye exam: Present: normal appearance, PERRL, EOMI. Absent: scleral icterus, conjunctival injection, periorbital swelling ENT exam: Present: normal exam, mucous membranes moist Neck exam: Present: normal inspection, full ROM. Absent: tenderness, meningismus, lymphadenopathy Respiratory exam: Present: normal lung sounds bilaterally. Absent: respiratory distress, wheezes, rales, rhonchi, stridor Cardiovascular Exam: Present: regular rate, normal rhythm, normal heart sounds. Absent: systolic murmur, diastolic murmur, rubs, gallop, clicks Extremities exam: Present: tenderness (Tenderness to the left lateral malleolus. No significant tenderness to the left foot. No fifth metatarsal or navicular tenderness.), normal capillary refill (Capillary refill less than 2 seconds, DP pulse 2+ in the left lower extremity), joint swelling (Mild edema noted of the left lateral malleolus, no edema of the left foot), other (Sensation intact in the left lower extremity.). Absent: full ROM (She does have some limited plantar and dorsiflexion of the left ankle which she states is chronic however there is mild range of motion which shows extensor and flexor movements are intact.), pedal edema, calf tenderness Course Vital Signs 09/19/18 12:34 Temperature 98.1 F Pulse Rate 74 Respiratory 20 Rate Blood Pressure 129/83 O2 Sat by Pulse 96 Oximetry Procedures - Orthopedic Splinting/Casting Injury #1 Side: left Lower Extremity Injury Location: short leg Lower Extremity Immobilizer: stirrup splint Additional Comments: Neurovascular status intact after splint applied Medical Decision Making - Medical Decision Making 52-year-old female presents to the emergency department for a chief complaint of left ankle pain. Patient left leg gave out today and she fell onto the left ankle. Denies any other injuries. States she often falls frequently as of MS. Patient has history of MS and is currently scheduled to receive IV steroids at Dr. Laura's office at 2:30. X-ray of the left foot and ankle shows no fracture or dislocation. We did not have any Aircast in the emergency department. Therefore spoke with patient and we opted to do a OCL stirrup splint. This was applied. Patient will follow up with orthopedics. She will attend her neurology appointment in one hour for her IV steroids. She will return here if she has any worsening symptoms. Disposition Clinical Impression: Left ankle injury Disposition: HOME SELF-CARE Condition: Good Instructions (If sedation given, give patient instructions): Ankle Sprain (ED) Additional Instructions: Please take Motrin and Tylenol for pain. Please rest ice and elevate the left ankle. Follow-up for orthopedics in one to 2 days for left ankle. Follow-up at your neurology appointment at 2:[address] Laura for steroids. Return here if you have any worsening symptoms. Is patient prescribed a controlled substance at d/c from ED?: No Referrals: Suresh Doty MD [Primary Care Provider] - 1-2 days Kelby Cardenas MD [STAFF PHYSICIAN] - 1-2 days Jennifer Laura MD [Medical Doctor] - 1-2 days Time of Disposition: 13:36
[2018-09-19 13:47] VITALS: BP 122/80; PULSE 71; RESP 16
== END 2018-09-19 13:46 | disposition home or self-care (01) ==
LOC: EC 12:22
DX: S99.912A Unspecified injury of left ankle, initial encounter (principal); J45.909 Unspecified asthma, uncomplicated; K21.9 Gastro-esophageal reflux disease without esophagitis; E78.5 Hyperlipidemia, unspecified; I10 Essential (primary) hypertension; M19.90 Unspecified osteoarthritis, unspecified site; G35 Multiple sclerosis; G47.30 Sleep apnea, unspecified; Z99.89 Dependence on other enabling machines and devices; E07.9 Disorder of thyroid, unspecified; G62.9 Polyneuropathy, unspecified; F32.9 Major depressive disorder, single episode, unspecified; F41.9 Anxiety disorder, unspecified; M54.5 Low back pain; M25.552 Pain in left hip; M25.551 Pain in right hip; G89.29 Other chronic pain; Z79.01 Long term (current) use of anticoagulants; Z79.82 Long term (current) use of aspirin; Z79.891 Long term (current) use of opiate analgesic; Z79.899 Other long term (current) drug therapy; Z79.890 Hormone replacement therapy; Z88.1 Allergy status to other antibiotic agents; Z88.8 Allergy status to other drugs, medicaments and biological substances; Z95.0 Presence of cardiac pacemaker; W19.XXXA Unspecified fall, initial encounter; X50.1XXA Overexertion from prolonged static or awkward postures, initial encounter
CPT/HCPCS: 29515; 99283

== ENCOUNTER → 2018-09-28 | Outpatient (CLI) | payer MEDICARE ==
--- NOTE | 2018-09-28 08:16 | CT ---
EXAMINATION TYPE: CT brain wo/w con DATE OF EXAM: 09/28/2018 COMPARISON: CT brain July 26, 2017 HISTORY: Multiple Sclerosis CT DLP: 2180.8 mGycm Automated exposure control for dose reduction was used. CONTRAST: CT scan of the head is performed without and with IV Contrast, patient injected with 100 mL of Isovue 300. FINDINGS: Noncontrast images show no acute cranial hemorrhage or midline shift. Everett-white matter dif ferentiation is fairly well-maintained on CT. There is no suspicious enhancement identified on postc ontrast images. The ventricles and sulci are within normal limits in size. The globes are intact an d the visualized sinuses are clear. Empty sella morphology redemonstrated on sagittal images. IMPRESSION: No acute intracranial abnormality or enhancing intracranial lesions seen. No significant change from prior.
== END | disposition home or self-care (01) ==
LOC: RADCTMAIN 06:51
PROVIDERS: ATTEND Psychiatry & Neurology Neurology
DX: G35 Multiple sclerosis (principal)
CPT/HCPCS: 70470; Q9967

== ENCOUNTER → 2019-05-24 | Outpatient (CLI) | payer MEDICARE ==
[2019-05-24 17:19] LABS: Basophils % (A) 0 %; Eosinophils # (A) 0.2 k/uL (0-0.7); Eosinophils % (A) 3 %; HCT 42.7 % (34.0-46.0); HGB 13.6 gm/dL (11.4-16.0); Lymphocytes # (A) 0.7 k/uL (1.0-4.8); Lymphocytes % (A) 12 %; MCH 28.4 pg (25.0-35.0); MCHC 31.9 g/dL (31.0-37.0); MCV 88.9 fL (80.0-100.0); Mean Platelet Volume 7.1; Monocytes # (A) 0.3 k/uL (0-1.0); Monocytes % (A) 4 %; Neutrophils # (A) 4.4 k/uL (1.3-7.7); Neutrophils % (A) 77 %; Platelet Count 329 k/uL (150-450); RDW 13.4 % (11.5-15.5); WBC 5.7 k/uL (3.8-10.6)
== END | disposition home or self-care (01) ==
LOC: LABWHC1 16:55
PROVIDERS: ATTEND Nurse Practitioner Acute Care
DX: G35 Multiple sclerosis (principal)
CPT/HCPCS: 36415; 85025

== ENCOUNTER → 2019-11-23 | Outpatient (CLI) | payer MEDICARE ==
[2019-11-23 23:54] LABS: T4, Free (Free Thyroxine) 0.9 ng/dL (0.80-1.80)
[2019-11-24 03:49] LABS: ACTH 7.99 pg/mL (0.00-45.99)
[2019-11-24 05:02] LABS: Hepatitis B Core IgM Non-Reactive (Non-Reactive); Hepatitis B Surface AB- Quant 3.5 mIU/mL; Hepatitis B Surface Antibody Non-Reactive (Non-Reactive); Hepatitis B Surface Antigen Non-Reactive (Non-Reactive)
== END | disposition home or self-care (01) ==
LOC: LABWHC1 15:10
PROVIDERS: ATTEND Internal Medicine Endocrinology, Diabetes & Metabolism
DX: E03.8 Other specified hypothyroidism (principal); E27.3 Drug-induced adrenocortical insufficiency; Z51.81 Encounter for therapeutic drug level monitoring; E55.9 Vitamin D deficiency, unspecified; G35 Multiple sclerosis
CPT/HCPCS: 36415; 82024; 82306; 82533; 82607; 84207; 84439; 84443; 86704; 86705; 86706; 87340

== ENCOUNTER → 2019-12-13 | Outpatient (CLI) | payer MEDICARE ==
--- NOTE | 2019-12-13 09:01 | CT ---
EXAMINATION TYPE: CT lumbar spine wo con DATE OF EXAM: 12/13/2019 8:38 AM COMPARISON: Lumbar spine x-ray June 14, 2017. HISTORY: low back pain, multiple sclerosis CT DLP: 1823.1 mGycm Automated exposure control for dose reduction was used. Unenhanced CT of the lumbar spine was performed. Bone and soft tissue window settings are submitted as well as coronal and sagittal reconstructions. There are 5 lumbar type vertebrae demonstrated. There is now moderate disc space narrowing and vacuum disc phenomenon L5-S1 level otherwise vertebral body heights and disc space heights are fairly well maintained. No significant spurring noted. Axial images show T12-L1, L1-L2, and L2-L3 levels all to appear within normal limits. Axial images at L3-L4 level show mild broad disc bulge mildly effacing the anterior thecal sac on gil ge 49 and causing mild bilateral anterior inferior neural foraminal narrowing. Axial images at the L4-L5 level mild facet degenerative changes bilaterally. There is mild broad disc bulge mildly effacing the anterior thecal sac. Patent bilateral neural foramina. Axial images at the L5-S1 level show mild/moderate facet arthropathy bilaterally. There is posterior spur disc complex. Spinal canal grossly preserved. Mild to moderate bilateral left greater right neur al foraminal narrowing is slightly more prominent left foraminal disc protrusion seen axial image 68. Paraspinal muscle bulk preserved. Some scattered subcentimeter retroperitoneal adenopathy noted. IMPRESSION: Mild to borderline moderate multilevel degenerative changes mid to lower lumbar spine as detailed above.
--- NOTE | 2019-12-13 09:13 | CT ---
EXAMINATION TYPE: CT brain wo/w con DATE OF EXAM: 12/13/2019 COMPARISON: Prior CT brain September 28, 2018 HISTORY: Multiple sclerosis CT DLP: 2144.4 mGycm Automated exposure control for dose reduction was used. CONTRAST: CT scan of the head is performed without and with IV Contrast, patient injected with 100 mL of Isovue 300. FINDINGS: Noncontrast images show no acute intracranial hemorrhage or midline shift. The ventricles and sulci are within normal limits in size. Everett-white matter differentiation is maintained. The calvarium is i ntact. Postcontrast images show no suspicious enhancing mass. Empty sella morphology redemonstrated. IMPRESSION: No acute intracranial abnormality or enhancing intracranial lesions seen. No significant change from prior.
--- NOTE | 2019-12-13 09:26 | CT ---
EXAMINATION TYPE: CT cervical spine wo/w con DATE OF EXAM: 12/13/2019 COMPARISON: CT cervical spine July 24, 2017 HISTORY: multiple sclerosis, neck pain CT DLP: 1751.9 mGycm. Automated Exposure Control for Dose Reduction was Utilized. TECHNIQUE: CT scan of the cervical spine is obtained without and with IV contrast, axial images are obtained, sagittal and coronal reformatted images are also reviewed. Patient injected with 100 cc Iso shamika-300 for study. FINDINGS: Exam slightly suboptimal due to patient's body habitus Cervical spine is visualized in its entirety from C1 through upper thoracic levels, demonstrates satisfactory alignment without evidence of acute fracture or dislocation. Prevertebral soft tissue appears within normal limits. The C1-C2 articulation is within normal limits on the coronal images. Vertebral body heights are maintained. Mi ld disc space narrowing C6-C7 and C7-T1 levels. Spinal canal grossly preserved. No significant spurri ng is present. Review of axial images shows no significant spinal canal stenosis or neural foraminal narrowing at an y cervical level. No obvious cord enhancing lesion present. Visualized portion of thyroid gland unrem arkable. Visualized lung apices remain clear. IMPRESSION: As above. No significant interval change from prior.
== END | disposition home or self-care (01) ==
LOC: RADCTMAIN 07:41
PROVIDERS: ATTEND Psychiatry & Neurology Neurology
DX: M99.71 Connective tissue and disc stenosis of intervertebral foramina of cervical region (principal); M47.816 Spondylosis without myelopathy or radiculopathy, lumbar region; M47.817 Spondylosis without myelopathy or radiculopathy, lumbosacral region; G35 Multiple sclerosis
CPT/HCPCS: 72127; 72131; 70470; Q9967

== ENCOUNTER → 2020-04-08 | Outpatient (CLI) | payer MEDICARE ==
[2020-04-08 20:21] LABS: African American GFR (CKD) 97.6 (60.0-200.0); Albumin 4.3 g/dL (3.80-4.90); Albumin/Globulin Ratio 1.95 (1.60-3.17); Anion Gap 7.8 mmol/L (4.00-12.00); BUN/Creat Ratio 26.25 Ratio (12.00-20.00); Calcium 9.1 mg/dL (8.7-10.3); Carbon Dioxide 31.2 mmol/L (21.6-31.8); Chol/HDL Ratio 3.09; Globulin 2.2 g/dL (1.6-3.3); LDL Cholesterol,Calculated 110.2 mg/dL (0.0-131.0); Non-African American GFR(CKD) 84.2 (60.0-200.0); Potassium 4.8 mmol/L (3.5-5.5); Total Bilirubin 0.2 mg/dL (0.2-1.2); Total Protein 6.5 g/dL (6.2-8.2); VLDL Calculation 23.8 mg/dL (5.00-40.00)
[2020-04-08 20:44] LABS: Basophils # (A) 0.03 X 10*3/uL (0.00-0.10); Basophils % (A) 0.4 %; Eosinophils # (A) 0.14 X 10*3/uL (0.04-0.35); Eosinophils % (A) 1.8 %; HCT 39.7 % (37.2-46.3); HGB 12.2 g/dL (12.0-15.0); Lymphocytes # (A) 1.26 X 10*3/uL (0.90-5.00); Lymphocytes % (A) 16.4 %; MCHC 30.7 g/dL (32.0-37.0); MCV 91.3 fL (80.0-97.0); Mean Platelet Volume 10.2 fL (9.5-12.2); Monocytes # (A) 0.53 X 10*3/uL (0.20-1.00); Monocytes % (A) 6.9 %; Neutrophils # (A) 5.69 X 10*3/uL (1.80-7.70); Neutrophils % (A) 74.1 %; Platelet Count 355 X 10*3/uL (140-440); RBC 4.35 X 10*6/uL (4.10-5.20); RDW 13.7 % (11.5-14.5); WBC 7.68 X 10*3/uL (4.50-10.00)
[2020-04-08 23:49] LABS: Hemoglobin A1C 5.5 % (4.0-6.0)
== END | disposition home or self-care (01) ==
LOC: LABWHC1 11:37
PROVIDERS: ATTEND Nurse Practitioner Acute Care
DX: Z00.00 Encounter for general adult medical examination without abnormal findings (principal); E03.8 Other specified hypothyroidism; E16.2 Hypoglycemia, unspecified; G35 Multiple sclerosis; Z51.81 Encounter for therapeutic drug level monitoring; Z79.899 Other long term (current) drug therapy
CPT/HCPCS: 36415; 80053; 80061; 82306; 82607; 83036; 84207; 84439; 84443; 85025

== ENCOUNTER → 2021-01-19 | Outpatient (CLI) | payer MEDICARE ==
[2021-01-19 19:47] LABS: Basophils # (A) 0.05 X 10*3/uL (0.00-0.10); Basophils % (A) 0.6 %; Eosinophils # (A) 0.14 X 10*3/uL (0.04-0.35); Eosinophils % (A) 1.6 %; HCT 34.7 % (37.2-46.3); HGB 10.3 g/dL (12.0-15.0); Lymphocytes # (A) 0.87 X 10*3/uL (0.90-5.00); MCH 27.4 pg (27.0-32.0); MCHC 29.7 g/dL (32.0-37.0); MCV 92.3 fL (80.0-97.0); Mean Platelet Volume 9.7 fL (9.5-12.2); Monocytes # (A) 0.47 X 10*3/uL (0.20-1.00); Monocytes % (A) 5.4 %; Neutrophils # (A) 7.15 X 10*3/uL (1.80-7.70); Neutrophils % (A) 82.1 %; Platelet Count 368 X 10*3/uL (140-440); RBC 3.76 X 10*6/uL (4.10-5.20); RDW 15.2 % (11.5-14.5); WBC 8.71 X 10*3/uL (4.50-10.00)
[2021-01-19 21:57] LABS: ALT 10 U/L (8-44); AST 16 U/L (13-35); African American GFR (CKD) 91.5 (60.0-200.0); Albumin 3.9 g/dL (3.8-4.9); Albumin/Globulin Ratio 1.31 (1.60-3.17); Alkaline Phosphatase 94 U/L (41-126); BUN/Creat Ratio 18.95 Ratio (12.00-20.00); Blood Urea Nitrogen 15.9 mg/dL (9.0-27.0); Calcium 8.5 mg/dL (8.7-10.3); Carbon Dioxide 29.2 mmol/L (21.6-31.8); Chloride 102 mmol/L (96-109); Glucose 82 mg/dL (70-110); Iron 40 ug/dL (50-170); Non-African American GFR(CKD) 78.9 (60.0-200.0); Potassium 4.1 mmol/L (3.5-5.5); Sodium 143 mmol/L (135-145); Total Bilirubin <0.20 mg/dL (0.30-1.20); Total Protein 6.8 g/dL (6.2-8.2)
[2021-01-20 00:19] LABS: ACTH <1.50 pg/mL (0.00-45.99)
[2021-01-20 13:14] LABS: Natural Killer Cell (CD16/56) 376 cell/ul (60-500); Natural Killer Cell (CD16/56)% 37 % (3-24); T Helper Cell (CD4) 385 cell/ul (443-1471); T Helper Cell (CD4) % 38 % (35-66); T Suppressor Cell (CD8) 224 cell/ul (190-832); T Suppressor Cell (CD8) % 22 % (9-37); T4/T8 Ratio (CD4:CD8) 1.7 (1.0-3.7); Total B Cell (CD19) <14 cell/ul (100-524); Total T Cell (CD3) 614 cell/ul (704-2138); Total T Cell (CD3)% 61 % (55-86)
[2021-01-21 06:19] LABS: Vit B1(Thiamine) 80 ug/L (38-122)
== END | disposition home or self-care (01) ==
LOC: LABWHC1 14:28
PROVIDERS: ATTEND Nurse Practitioner Acute Care
DX: Z51.81 Encounter for therapeutic drug level monitoring (principal); E27.3 Drug-induced adrenocortical insufficiency; E16.2 Hypoglycemia, unspecified; E03.8 Other specified hypothyroidism; E53.9 Vitamin B deficiency, unspecified; E55.9 Vitamin D deficiency, unspecified
CPT/HCPCS: 36415; 80053; 82024; 82306; 82533; 82607; 83036; 83540; 84425; 84443; 84466; 85025; 86355; 86357; 86359; 86360

== ENCOUNTER → 2021-01-20 | Outpatient (CLI) | payer MEDICARE ==
--- NOTE | 2021-01-21 07:21 | CT ---
EXAMINATION TYPE: CT brain wo/w con DATE OF EXAM: 01/20/2021 COMPARISON: Prior CT brain December 13, 2019 HISTORY: headaches, hx of MS CT DLP: 2180.7 mGycm Automated exposure control for dose reduction was used. CONTRAST: CT scan of the head is performed without and with IV Contrast, patient injected with 100 mL of Isovue 300. FINDINGS: Noncontrast images show no acute intracranial hemorrhage or midline shift. The ventricles and sulci are within normal limits in size for patient's age. No suspicious enhancing plaques or mas ses identified. The globes are intact and the visualized sinuses are clear. Empty sella morphology re demonstrated. IMPRESSION: No enhancing plaques identified. No significant change from prior.
--- NOTE | 2021-01-21 07:30 | CT ---
EXAMINATION TYPE: CT cervical spine wo/w con DATE OF EXAM: 01/20/2021 COMPARISON: CT cervical spine December 13, 2019 HISTORY: headaches, hx of MS CT DLP: 985.8 mGycm. Automated Exposure Control for Dose Reduction was Utilized. TECHNIQUE: CT scan of the cervical spine is obtained without and with IV contrast, axial images are obtained, sagittal and coronal reformatted images are also reviewed. Patient injected with 100 cc of Isovue-300. FINDINGS: Exam slightly suboptimal due to patient's body habitus particularly evaluating lower cervic al levels worst at posterior C7-T1 level. Cervical spine is visualized in its entirety from C1 throug h upper thoracic levels, demonstrates is stable and satisfactory alignment. Prevertebral soft tissue remains within normal limits. The C1-C2 articulation remains unremarkable on the coronal images. Ve rtebral body heights are stable and satisfactory. Mild disc space narrowing C6-C7 and moderate disc s pace narrowing C7-T1 levels are redemonstrated. Spinal canal grossly preserved. No significant spurri ng is present. Review of axial images shows probable broad-based right paracentral disc protrusion effacing the ante rior thecal sac at C6-C7 level images 57 and 58 causing flattening of the spinal cord. This is less w ell seen due to artifact on sagittal images. Remainder of axial levels appear within normal limits. N o obvious cord enhancing lesion present. Visualized portion of thyroid gland unremarkable. Visualized lung apices show no pneumothorax. IMPRESSION: Suboptimal study. Suspect prominent disc herniation C5-C6 level effacing the anterior the darin sac up to ventral surface of spinal cord. Patient may benefit with CT myelogram to better evaluat e if cannot go under MRI.
== END | disposition home or self-care (01) ==
LOC: RADCTMAIN 15:07
PROVIDERS: ATTEND Psychiatry & Neurology Neurology
DX: G35 Multiple sclerosis (principal)
CPT/HCPCS: 72127; 70470; Q9967

== ENCOUNTER → 2021-07-15 | Outpatient (CLI) | payer MEDICARE ==
--- NOTE | 2021-07-16 12:36 | XR ---
EXAMINATION TYPE: AP view pelvis and 2 views each hip DATE OF EXAM: 07/15/2021 COMPARISON: NONE HISTORY: 55-year-old female M16.0, worsening bilateral hip pain. FINDINGS: SI joints appear symmetric and intact. Smooth delineation to the arcuate lines of the sacrum. Mild de generative change of the pubic symphysis. There is mild degenerative spurring at the bilateral acetab ular margins but with relative preservation of the joint space at this time. Some enthesopathy at the greater trochanters bilaterally. No acute fracture, subluxation, or dislocation seen. IMPRESSION: Mild degenerative change of both hips. No acute osseous abnormality seen.
== END | disposition home or self-care (01) ==
LOC: RADXRMAIN 16:57
PROVIDERS: ATTEND Anesthesiology
DX: M16.0 Bilateral primary osteoarthritis of hip (principal)
CPT/HCPCS: 73521

== ENCOUNTER → 2021-09-30 | Outpatient (CLI) | payer MEDICARE ==
--- NOTE | 2021-09-30 09:31 | CT ---
EXAMINATION TYPE: CT lumbar spine wo con CT DLP: 1689 mGycm, Automated exposure control for dose reduction was used. DATE OF EXAM: 09/30/2021 9:20 AM COMPARISON: CT lumbar spine 12/13/2019. CLINICAL INDICATION:Female, 55 years old with history of G35.340 M54.50; M47.816;Hx of MS TECHNIQUE: Multiple axial images were obtained from the midportion of T11 through the sacroiliac nita nts. Soft tissue and bone windows in coronal and sagittal planes were obtained and reviewed. 3-D ref ormats of the bones were created on a separate workstation and submitted for review. FINDINGS: Alignment: There are 5 lumbar type vertebral bodies within normal alignment. Moderate disc space narr owing and vacuum disc phenomenon at L5-S1 otherwise vertebral body heights and disc space heights are well-maintained. No significant spurring noted. Bone: No evidence of fracture is identified. Discs: T12-L1, L1-L2, and L2-L3: No spinal canal or neural foraminal stenosis is identified. L3-L4: Mild broad-based disc bulge with mild effacement of anterior thecal sac. Mild bilateral neural foraminal narrowing. No significant change from prior exam. L4-L5: Mild broad-based disc bulge with mild effacement of the anterior thecal sac. Patent bilateral neural foramina. Facet degenerative changes bilaterally. No significant change prior exam. L5-S1: Posterior disc osteophyte complex without significant spinal canal narrowing. Left foraminal d isc protrusion is again demonstrated. Mild bilateral neural foraminal narrowing with left greater bere n right.Degenerative disc disease L5-S1 with disc space narrowing, vacuum disc disease, and endplate sclerosis. Other: None IMPRESSION: Overall unchanged examination from 12/13/2019 with mild multilevel degenerative changes of the mid to lower lumbar spine.
--- NOTE | 2021-09-30 09:41 | CT ---
EXAMINATION TYPE: CT brain wo/w con CT DLP: 2344.7 mGycm, Automated exposure control for dose reduction was used. DATE OF EXAM: 09/30/2021 9:27 AM COMPARISON: CT brain 01/20/2021. CLINICAL INDICATION:Female, 55 years old with history of G35.340 M54.50; M47.816; PHH, Hx of MS TECHNIQUE: Axial CT images of the brain were obtained followed by contrast enhanced axial images of t he brain with 65 cc of ISO-view 370 IV contrast. Coronal and sagittal reformats reviewed. One or more CT dose reduction strategies were utilized during this examination. FINDINGS: Extra-axial spaces: No abnormal extra-axial fluid collections. Ventricular system: Within normal limits Cerebral parenchyma: No acute intraparenchymal hemorrhage or mass effect. The boss-white junction is well differentiated. No suspicious enhancing plaques or masses identified. Cerebellum: Unremarkable. Mass effect: No evidence of midline shift. Intracranial vasculature: unremarkable Soft tissues: Normal. Calvarium/osseous structures: No depressed skull fracture. Empty sella morphology redemonstrated. Paranasal sinuses and mastoid air cells: Clear. Visualized orbits: Orbital contents are intact. IMPRESSION: No acute intracranial process. No enhancing plaques identified. No significant change from prior examination.
--- NOTE | 2021-09-30 11:09 | CT ---
EXAMINATION TYPE: CT cervical spine wo/w con DATE OF EXAM: 09/30/2021 COMPARISON: CT cervical spine 01/20/2021. HISTORY: Hx of MS CT DLP: 2049.2 mGycm. Automated Exposure Control for Dose Reduction was Utilized. TECHNIQUE: CT scan of the cervical spine is obtained before and after the IV administration of 65 mL of Isovue 300 intravenously. Axial images are obtained, sagittal and coronal reformatted images are also reviewed. FINDINGS: Examination is slightly suboptimal due to patient's body habitus. Incomplete fusion of the posterior arch of C1. Posterior stabilization of left chest wall cardiac pacer with leads. The visual ized lungs are clear. Cervical spine is visualized in its entirety from C1 through upper thoracic lev els, demonstrates satisfactory alignment without evidence of acute fracture or dislocation. Preverte bral soft tissue appears within normal limits. The C1-C2 articulation is within normal limits on the coronal images. Vertebral body heights are stable and satisfactory. Mild disc space narrowing at C6- C7. Moderate disc space narrowing at C7-T1 redemonstrated. Spinal canal is grossly preserved. No sign ificant spurring is present. Review of axial images shows broad-based right paracentral disc protrusion effacing the anterior thec al sac at C5-C6 again there is flattening of the spinal cord at this level. Remainder of the axial le vels appears within normal limits. No obvious cord enhancing lesion is present. Visualized portion of thyroid gland is unremarkable. IMPRESSION: Suboptimal examination again with suspected prominent disc herniation at C5-C6 level with mild effacement of the anterior thecal sac. No significant change from prior examination. No obvious cord enhancing lesions present.
--- NOTE | 2021-09-30 13:21 | CT ---
EXAMINATION TYPE: CT thoracic spine wo/w con CT DLP: 5448.3 mGycm, Automated exposure control for dose reduction was used. DATE OF EXAM: 09/30/2021 9:25 AM COMPARISON: None. CLINICAL INDICATION:Female, 55 years old with history of G35.340 M54.50; M47.816; PHH, Hx of MS TECHNIQUE: Axial images of the thoracic spine were obtained before and after the uneventful administr ation of 65 cc of Isovue-300 intravenously. Coronal and sagittal reformats were performed. FINDINGS: The thoracic vertebral bodies have preserved heights and alignment. Intervertebral discs and osseous structures have normal appearance. Mild anterior osteophytosis of the mid thoracic spine . I do not see any evidence of extradural defects nor significant spinal canal narrowing at any thoraci c vertebral body level. No obvious cord enhancing lesion is present. Left chest wall cardiac pacer with 2 leads identified. Visualized lungs are clear. Post surgical yuen ges from gastric sleeve. IMPRESSION: * No spinal canal or neural foraminal stenosis is identified. * No obvious cord enhancing lesions identified.
== END | disposition home or self-care (01) ==
LOC: RADCTMAIN 08:16
PROVIDERS: ATTEND Psychiatry & Neurology Neurology
DX: M50.10 Cervical disc disorder with radiculopathy, unspecified cervical region (principal); M47.816 Spondylosis without myelopathy or radiculopathy, lumbar region; G35 Multiple sclerosis; M51.26 Other intervertebral disc displacement, lumbar region; M50.322 Other cervical disc degeneration at C5-C6 level
CPT/HCPCS: 72130; 72127; 72131; 70470; Q9967

== ENCOUNTER → 2022-01-25 | Outpatient (CLI) | payer MEDICARE ==
[2022-01-25 19:00] LABS: African American GFR (CKD) 53.5 (60.0-200.0); Albumin 4.6 g/dL (3.8-4.9); Albumin/Globulin Ratio 1.64 (1.60-3.17); Anion Gap 14.6 mmol/L (10.00-18.00); Blood Urea Nitrogen 20.8 mg/dL (9.0-27.0); Carbon Dioxide 27.4 mmol/L (20.0-27.5); Globulin 2.8 g/dL (1.6-3.3); Non-African American GFR(CKD) 46.1 (60.0-200.0); Potassium 4.8 mmol/L (3.5-5.5); Total Bilirubin 0.3 mg/dL (0.30-1.20); Total Protein 7.4 g/dL (6.2-8.2)
== END | disposition home or self-care (01) ==
LOC: LABWHC1 12:02
PROVIDERS: ATTEND Internal Medicine Endocrinology, Diabetes & Metabolism
DX: E03.8 Other specified hypothyroidism (principal); E27.3 Drug-induced adrenocortical insufficiency
CPT/HCPCS: 36415; 80053; 82024; 82533; 84443

== ENCOUNTER → 2022-07-05 | Outpatient (CLI) | payer MEDICARE ==
[2022-07-05 20:53] LABS: Basophils # (A) 0.04 X 10*3/uL (0.00-0.10); Basophils % (A) 0.5 %; Eosinophils # (A) 0.14 X 10*3/uL (0.04-0.35); Eosinophils % (A) 1.9 %; HCT 37.9 % (37.2-46.3); HGB 11.7 g/dL (12.0-15.0); Immature Grans, Automated 0.1 %; Lymphocytes # (A) 1.23 X 10*3/uL (0.90-5.00); Lymphocytes % (A) 16.3 %; MCH 27.3 pg (27.0-32.0); MCHC 30.9 g/dL (32.0-37.0); MCV 88.3 fL (80.0-97.0); Mean Platelet Volume 9.5 fL (9.5-12.2); Monocytes % (A) 7.9 %; NRBC Per 100 WBC 0 /100 WBCS (0.0-0.0); Neutrophils # (A) 5.54 X 10*3/uL (1.80-7.70); Neutrophils % (A) 73.3 %; Platelet Count 406 X 10*3/uL (140-440); RBC 4.29 X 10*6/uL (4.10-5.20); RDW 14.6 % (11.5-14.5); WBC 7.56 X 10*3/uL (4.50-10.00)
[2022-07-05 22:48] LABS: ALT 16 U/L (8-44); AST 19 U/L (13-35); African American GFR (CKD) 80.2 (60.0-200.0); Albumin 4.2 g/dL (3.8-4.9); Albumin/Globulin Ratio 1.62 (1.60-3.17); Alkaline Phosphatase 103 U/L (41-126); BUN/Creat Ratio 19.25 Ratio (12.00-20.00); Blood Urea Nitrogen 17.9 mg/dL (9.0-27.0); Calcium 9.5 mg/dL (8.7-10.3); Carbon Dioxide 29.2 mmol/L (20.0-27.5); Chloride 102 mmol/L (96-109); Globulin 2.6 g/dL (1.6-3.3); Glucose 98 mg/dL (70-110); LDL Cholesterol,Calculated 156.3 mg/dL (0.0-131.0); Non-African American GFR(CKD) 69.2 (60.0-200.0); Potassium 4.2 mmol/L (3.5-5.5); Sodium 144 mmol/L (135-145); Total Bilirubin <0.15 mg/dL (0.30-1.20); Total Protein 6.7 g/dL (6.2-8.2)
== END | disposition home or self-care (01) ==
LOC: LABWHC1 16:15
PROVIDERS: ATTEND Internal Medicine Endocrinology, Diabetes & Metabolism
DX: I70.0 Atherosclerosis of aorta (principal); E55.9 Vitamin D deficiency, unspecified; E27.3 Drug-induced adrenocortical insufficiency
CPT/HCPCS: 36415; 80053; 80061; 82024; 82306; 82533; 85025

== ENCOUNTER → 2023-03-18 | Outpatient (CLI) | payer MEDICARE ==
--- NOTE | 2023-03-18 15:57 | CT ---
EXAMINATION TYPE: CT brain wo/w con DATE OF EXAM: 03/18/2023 COMPARISON: 09/30/2021 HISTORY: MS CT DLP: 2369.8 mGycm Automated exposure control for dose reduction was used. CONTRAST: CT scan of the head is performed with IV Contrast, patient injected with 100 mL of Isovue 300. FINDINGS: The ventricles, basal cisterns and sulci over the convexities are within normal limits and there is n o mass effect or shift of midline structures. No abnormal density is seen throughout the brain parenchyma. There is no acute intra or extra-axial hemorrhage. The posterior fossa including the brainstem, fourth ventricle and cerebellar pontine angles appear gr ossly normal. The intraorbital contents appear normal and symmetric. Visualized paranasal sinuses and mastoid air cells are well aerated. The calvarium is intact. IMPRESSION: No significant abnormality seen with no interval change.
--- NOTE | 2023-03-18 16:02 | CT ---
EXAMINATION TYPE: CT lumbar spine wo con DATE OF EXAM: 03/18/2023 1:31 PM COMPARISON: 09/30/2021 HISTORY: MS CT DLP: 1000 mGycm Automated exposure control for dose reduction was used. Unenhanced CT of the lumbar spine was performed. Bone and soft tissue window settings are submitted as well as coronal and sagittal reconstructions. Findings: Lumbar vertebral segments are normal in height and alignment. The disc spaces are well-maintained from L1 through L5 and there is no significant degenerative disc disease from L1 through L5. There is moderate degenerative disease at the L5-S1 level where there is moderate disc space narrowing and vacuum phenomena. There is mild encroachment of the L5-S1 neurofora cary bilaterally secondary to disc space narrowing and mild spondylosis There is mild spinal stenosis at the L3-4 level secondary to mild thickening and mild calcification o f ligamentum flavum. The facet joints are intact. Visualized sacrum and SI joints are normal.. IMPRESSION: 1. Moderate degenerative disease at the L5-S1 level. 2. probable mild neural foraminal stenosis at L5-S1 bilaterally as described above. 3. Mild spinal stenosis at the L3-4 level unchanged compared to previous.
--- NOTE | 2023-03-18 16:10 | CT ---
CT cervical and thoracic spine. HISTORY: Multiple sclerosis. COMPARISON: CT cervical spine dated 09/30/2021. TECHNIQUE: Multiple axial images are obtained from the skull base through the upper lumbar spine with out contrast. Coronal and sagittal reconstructions were generated and reviewed. FINDINGS: The craniovertebral junction relationships and prevertebral soft tissues are normal. The cervical and thoracic vertebral segments are normal in height and alignment and there is no fract ure subluxation. There is mild there is mild degenerative disc disease in the lower thoracic spine at 2 levels approxi mate T8-9 and T9-T10 where there is mild anterior spondylosis.. There is no bony encroachment of the cervical or thoracic spinal canal or of the neural foramina. The paraspinal soft tissues unremarkable. IMPRESSION: Mild degenerative disc disease in lower cervical spine as described above with no other significant a bnormality seen. Evaluation for cervical or thoracic disc herniation is markedly limited by the techn ique. If there is a suspicion for disc herniation or stenosis , an MRI would be useful for further e valuation.
== END | disposition home or self-care (01) ==
LOC: RADCTMAIN 12:42
PROVIDERS: ATTEND Psychiatry & Neurology Neurology
DX: M47.27 Other spondylosis with radiculopathy, lumbosacral region (principal); M47.22 Other spondylosis with radiculopathy, cervical region; M48.061 Spinal stenosis, lumbar region without neurogenic claudication; G43.019 Migraine without aura, intractable, without status migrainosus; G35 Multiple sclerosis; M50.10 Cervical disc disorder with radiculopathy, unspecified cervical region; R07.9 Chest pain, unspecified; R53.1 Weakness
CPT/HCPCS: 72130; 72127; 72131; 70470; Q9967

== ENCOUNTER → 2023-06-14 | Outpatient (CLI) | payer MEDICARE ==
--- NOTE | 2023-06-15 10:21 | CA ---
Transthoracic Echo Report Name: Geetha Ruffin Age: 57 Gender: F : 1965 Exam Date: 06/14/2023 12:27 Exam Location: [facility] Ht (in): 65 Wt (lb): 385 Ordering Physician: Nishant Deshpande MD ([id number]) Attending/Referring Phys: Nishant Deshpande MD ([id number]) Immigration Judge Jong Peguero RDCS Procedure CPT: Indications: I25.10 cardiovascular disease Cardiac Hx: Technical Quality: Contrast 1: Total Dose (mL): Contrast 2: Total Dose (mL): MEASUREMENTS (Male / Female) Normal Values 2D ECHO LV Diastolic Diameter PLAX 4.5 cm 4.2 - 5.9 / 3.9 - 5.3 cm LV Systolic Diameter PLAX 2.6 cm IVS Diastolic Thickness 1.2 cm 0.6 - 1.0 / 0.6 - 0.9 cm LVPW Diastolic Thickness 1.0 cm 0.6 - 1.0 / 0.6 - 0.9 cm LV Relative Wall Thickness 0.5 LVOT Diameter 1.8 cm Aortic Root Diameter 3.1 cm LA Systolic Diameter LX 3.3 cm 3.0 - 4.0 / 2.7 - 3.8 cm DOPPLER AV Peak Velocity 168.1 cm/s AV Peak Gradient 11.3 mmHg AV Mean Velocity 119.6 cm/s AV Mean Gradient 6.0 mmHg AV Velocity Time Integral 39.7 cm LVOT Peak Velocity 117.4 cm/s LVOT Peak Gradient 5.5 mmHg LVOT Velocity Time Integral 31.4 cm LVOT Stroke Volume 82.8 cm??? LVOT Stroke Volume Index 31.7 ml/m??? AV Area Cont Eq vti 2.1 cm??? AV Area Cont Eq pk 1.8 cm??? Mitral E Point Velocity 109.2 cm/s Mitral A Point Velocity 116.1 cm/s Mitral E to A Ratio 0.9 MV Deceleration Time 262.0 ms MV E' Velocity 10.5 cm/s Mitral E to MV E' Ratio 10.4 PV Peak Velocity 109.9 cm/s PV Peak Gradient 4.8 mmHg FINDINGS Left Ventricle Mildly increased septal wall thickness. Left ventricular ejection fraction is estimated at 50-55 %. Normal left ventricular systolic function with no obvious regional wall motion abnormalities. Right Ventricle Normal right ventricular size. Right Atrium Normal right atrial size. Left Atrium Normal left atrial size. Mitral Valve Trace mitral regurgitation. Aortic Valve No aortic valve stenosis or regurgitation. Tricuspid Valve Trace tricuspid regurgitation. Pulmonic Valve No pulmonic regurgitation. Pericardium No pericardial effusion. Aorta Normal size aortic root. CONCLUSIONS Normal LV size and preserved systolic function ejection fraction is at the low end of normal with normal wall motion abnormality. Mild mitral and tricuspid regurgitation. No pericardial effusion. No pulmonary hypertension Previewed by: Dr. Herminia Helms MD (Electronically Signed) Final Date: 15 June 2023 10:21
== END | disposition home or self-care (01) ==
LOC: RADECHMAIN 13:18
PROVIDERS: ATTEND Internal Medicine Cardiovascular Disease
DX: I25.10 Atherosclerotic heart disease of native coronary artery without angina pectoris (principal); I08.1 Rheumatic disorders of both mitral and tricuspid valves
CPT/HCPCS: 93306

== ENCOUNTER → 2023-06-14 | Outpatient (CLI) | payer MEDICARE | END | disposition home or self-care (01) | LOC: LABWHC1 14:20 | PROVIDERS: ATTEND Internal Medicine Endocrinology, Diabetes & Metabolism | DX: E03.8 Other specified hypothyroidism (principal) | CPT/HCPCS: 36415; 82024; 82533; 84443 ==

== ENCOUNTER 2023-06-16 19:48 | Outpatient (CLI) | payer MEDICARE ==
--- NOTE | 2023-06-21 16:11 | P.PCN ---
Date of Procedure: 06/16/23 Operative Findings: CPAP titration study Date of service is 06/16/2023 Pertinent history This is a 57-year-old female patient diagnosed having severe PREETI with an AHI of 99.3. The patient failed CPAP therapy and failed BiPAP therapy due to emergence of central events and the patient underwent a successful ASV BiPAP titration. The patient has completed ablation of the obstructive respiratory events while being on ASV BiPAP. The patient was being seen regularly in my office. I was working with her in terms of optimizing her compliancy. During her last visitation it was done in May 2023, I noted that the patient was utilizing the machine 90% of the time achieving more than 4 hours of usage 57% of the time. Her average usage over those days were in the order of 4-hour and 37 minutes. She was on ASV mode with a EPAP minimum of 12 and a maximum of 15 and a pressure support of 3 and a maximum of 12. Her AHI while on treatment was at 9.1. However, based on her not meeting the insurance standards, the [facility] this titration in an attempt to have her machine approved by the insurance company. The patient has history of sick sinus syndrome and she has a pacemaker in place. She has chronic kidney disease and bronchial asthma and history of paroxysmal A-fib. Pertinent physical findings The patient has a height of 5 feet and 5 inches, weight is 287 pounds and a body mass index of 47.8 Technical description The patient was studied using a standard complex polysomnography protocol that included recording of the 2 EKG, Central, occipital and frontal EEG, right and left outer canthus EOG, submental EMG, right and left anterior tibialis EMG, respiratory airflow by thermocouple and or pressure/flow transducer, respiratory efforts by abdominal and thoracic PVDF belts, oxygen saturation by cable oximetry. Stepwise titration was done using the ASV mode. [employer]. Sleep architecture The total recording duration was 404 minutes. The total sleep time was 387 minutes. The wake after sleep onset time was 13 minutes. The overall sleep efficiency was 95.8%. The latency to sleep onset was 4 minutes and the latency to REM sleep was 243 minutes. The sleep architecture was characterized by 0.1% stage I, 59.8% stage II, 15.9% stage III and XX 4.2% REM sleep. The total arousal index was 1.1 Respiratory analysis During this titration, the patient was started again with CPAP therapy and due to ineffectiveness, the patient was switched to BiPAP therapy and ultimately the patient was switched to ASV BiPAP as the patient continued to have obstructive and central events. Ultimately, his treatment was successful while being on ASV BiPAP mode. The titration was continued. The final settings were EPAP minimum of 10 and a maximum of 15 with a pressure support minimum of 5 and a maximum of 15. The titration itself was successful as the patient had adequate elimination of the obstructive and central events at various sleep stages and body positions. Oxygenation analysis The patient was encountering significant nocturnal oxygen saturation which ultimately improved while being on ASV BiPAP specially the target pressures. The lowest oxygen saturation encountered during the study was 74%. The minimum pulse ox during REM sleep was 84%. Sleep continuity summary The patient had a total of 7 arousable and index of 1.1 with a respiratory arousal index of 0 Periodic limb movements No significant periodic limb movement activity was noted Cardiac summary average heart rate was 60 with a minimum heart rate of 58 and a maximum heart rate of 62. Assessment Sleep apnea, severe at baseline with an AHI of 93 and the patient had a combination of obstructive and central sleep apnea. The patient has failed CPAP and BiPAP in the past and the patient currently is utilizing ASV BiPAP mode. Note that she was trying to achieve compliancy and her data was not achieving insurance standards. Based on that, another ASV titration was done and the final settings are very close to the setting that the patient is currently utilizing. In summary, this was not successful ASV titration Multiple sclerosis History of CVA History of paroxysmal atrial fibrillation History of sick sinus syndrome with a pacemaker insertion Chronic kidney disease Bronchial asthma Obesity with a BMI of 47.8 Plan My plan is to continue ASV BiPAP treatment. I may end up modifying the pressures to the current settings and this will be done during her upcoming visit in my office. Note that the current recommended settings are very close to the ones that she currently has in her machine. I am going to maintain the same mask interface and make those adjustments. The patient will be monitored very closely in the office till she achieves full compliancy. Will continue to follow.
== END 2023-06-17 07:45 | disposition home or self-care (01) ==
LOC: 3 N SLEEP 19:48
PROVIDERS: ATTEND Internal Medicine Critical Care Medicine
DX: G47.33 Obstructive sleep apnea (adult) (pediatric) (principal); I48.0 Paroxysmal atrial fibrillation; G47.31 Primary central sleep apnea; E66.9 Obesity, unspecified; G35 Multiple sclerosis; N18.9 Chronic kidney disease, unspecified; J45.909 Unspecified asthma, uncomplicated; Z68.42 Body mass index [BMI] 45.0-49.9, adult; Z86.73 Personal history of transient ischemic attack (TIA), and cerebral infarction without residual deficits; Z95.0 Presence of cardiac pacemaker; Z88.1 Allergy status to other antibiotic agents; Z88.8 Allergy status to other drugs, medicaments and biological substances; Z91.048 Other nonmedicinal substance allergy status
CPT/HCPCS: 95811

== ENCOUNTER 2023-07-04 18:12 | Emergency (ER) | payer MEDICARE ==
--- NOTE | 2023-07-04 19:21 | ED ---
Fall HPI - General Chief Complaint: Fall Stated Complaint: Fall/R Arm Injury Time Seen by Provider: 07/04/23 19:00 Source: patient, RN notes reviewed Mode of arrival: ambulatory - History of Present Illness Initial Comments: 57-year-old female presented to the ER with chief complaint of a fall. Patient states yesterday she was walking outside on her daughter's deck and missed 2 steps. She states she landed on her right elbow and she states she "jammed her shoulder upwards". She denies any head injury or loss of consciousness. She does take Plavix and aspirin daily. Denies any dizziness, chest pain, lightheadedness or shortness of breath prior to fall. Denies any other injuries. She states she does have a fentanyl patch and takes Percocets daily as she has chronic pain. No other complaints. Tetanus up-to-date. - Related Data Home Medications Medication Instructions Recorded Confirmed Baclofen [Lioresal] 20 mg PO Q6H 11/01/13 09/19/18 Montelukast [Singulair] 10 mg PO HS 12/19/13 09/19/18 Melatonin 10 mg PO HS 02/14/15 09/19/18 Multivitamins, Thera [Multivitamin 1 tab PO DAILY 02/14/15 09/19/18 (formulary)] Clopidogrel [Plavix] 75 mg PO DAILY 09/25/15 09/19/18 raNITIdine HCL [Zantac] 150 mg PO BID 09/25/15 09/19/18 Magnesium Oxide [Mag-Ox] 400 mg PO DAILY 11/14/15 09/19/18 Vitamin A (10,000 Wm=8398 Mcg) 10,000 unit PO HS 11/24/15 09/19/18 Calcium Carbonate/Vitamin D3 1 tab PO BID 03/18/18 09/19/18 [Calcium 600-Vit D3 400 Caplet] DULoxetine HCL [Cymbalta] 60 mg PO HS 03/18/18 09/19/18 Gabapentin [Neurontin] 600 mg PO Q6H 03/18/18 09/19/18 hydrOXYzine HCL [Atarax] 25 mg PO Q8H 03/18/18 09/19/18 Aspirin EC [Ecotrin] 325 mg PO DAILY 09/19/18 09/19/18 Biotin 5 mg PO DAILY 09/19/18 09/19/18 Fludrocortisone [Florinef] 0.05 mg PO MOWEFR 09/19/18 09/19/18 Hydrocortisone [Cortef] 20 mg PO DAILY 09/19/18 09/19/18 Hydrocortisone [Cortef] 30 mg PO DAILY@1200 09/19/18 09/19/18 Ibuprofen [Motrin Ib] 200 mg PO Q6H 09/19/18 09/19/18 Levothyroxine Sodium [Synthroid] 50 mcg PO DAILY 09/19/18 09/19/18 Tylenol With Caffeine 500 mg PO DAILY PRN 09/19/18 09/19/18 Vitamin B Complex 1 cap PO DAILY 09/19/18 09/19/18 diphenhydrAMINE [Benadryl] 25 mg PO Q6H PRN 09/19/18 09/19/18 fentaNYL 25MCG/HR PATCH [Duragesic 25 mcg TRANSDERM Q72H 09/19/18 09/19/18 25MCG/HR] oxyCODONE-APAP 10-325MG [Percocet 1 tab PO Q12H PRN 09/19/18 09/19/18 10-325 mg] rOPINIRole HCL [Requip] 0.5 mg PO BID 09/19/18 09/19/18 Allergies Allergy/AdvReac Type Severity Reaction Status Date / Time amlodipine besylate Allergy Swelling Verified 07/04/23 18:45 [From Norvasc] glatiramer acetate Allergy HIGH Verified 07/04/23 18:45 [From Copaxone] FEVER. PSYCHOTIC EPISODE PER PT,MENINGITIS zolpidem tartrate Allergy FELT LIKE Verified 07/04/23 18:45 [From Ambien] SPIDERS CRAWLING ON HER SKIN vancomycin AdvReac Severe Hypotension Verified 07/04/23 18:45 Review of Systems ROS Statement: Those systems with pertinent positive or pertinent negative responses have been documented in the HPI. ROS Other: All systems not noted in ROS Statement are negative. Past Medical History Past Medical History: Asthma, CVA/TIA, Eye Disorder, GERD/Reflux, Hyperlipidemia, Hypertension, Neurologic Disorder, Osteoarthritis (OA), Skin Disorder, Sleep Apnea/CPAP/BIPAP, Thyroid Disorder Additional Past Medical History / Comment(s): SSS. [employer]. MS, RELAPSE SINCE 07/2017. DDD, Neuropathy ARMS/LEGS. Stroke 2003-sl lt sided weakness; SEV TIA'S. HX KIDNEY STONES. CHRONIC PAIN LOWER BACK, HIPS, LEGS. HX Psoriasis. Meniere's Disease. Sees shadows rt eye, intermittent double vision lt eye, "optic neuritis.' Adrenal insufficiency. SEE DR Roberts. History of Any Multi-Drug Resistant Organisms: None Reported Past Surgical History: Bariatric Surgery, Cholecystectomy, Hernia Repair, Orthopedic Surgery, Pacemaker Additional Past Surgical History / Comment(s): ORIF LT ANKLE; Pin removed). Battery Pacemaker replaced 2009, LAPAROSCOPIC GASTRIC SLEEVE WITH LYSIS OF ADHESIONS. Panniculectomy/Ventral hernia repair - REVISION PANNICULECTOMY. Past Anesthesia/Blood Transfusion Reactions: Motion Sickness Additional Past Anesthesia/Blood Transfusion Reaction / Comment(s): no hx blood transfusuion Type of Cardiac Device: Permanent Pacemaker Device Placement Date:: 2001 Past Psychological History: Anxiety, Depression Smoking Status: Never smoker Past Alcohol Use History: None Reported Past Drug Use History: None Reported - Past Family History Mother Family Medical History: Hypertension, Thyroid Disorder Daughter(s) Family Medical History: Deep Vein Thrombosis (DVT), Seizure Disorder Additional Family Medical History / Comment(s): crohn's disease Father History Unknown: Yes Family Medical History: Unable to Obtain Sister(s) Family Medical History: Hypertension Additional Family Medical History / Comment(s): prolonged QT syndrome,crohn's disease Brother(s) Family Medical History: Hypertension Son(s) Family Medical History: No Reported History Additional Family Medical History / Comment(s): ITP General Exam Limitations: no limitations General appearance: alert, in no apparent distress Head exam: Present: atraumatic, normocephalic, normal inspection Eye exam: Present: normal appearance, PERRL, EOMI. Absent: scleral icterus, conjunctival injection, periorbital swelling Pupils: Present: normal accommodation Neck exam: Present: normal inspection. Absent: tenderness, meningismus, lymphadenopathy Respiratory exam: Present: normal lung sounds bilaterally. Absent: respiratory distress, wheezes, rales, rhonchi, stridor Cardiovascular Exam: Present: regular rate, normal rhythm, normal heart sounds. Absent: systolic murmur, diastolic murmur, rubs, gallop, clicks Extremities exam: Present: tenderness (right clavicle and proximal humerus. 2+ right radial pulse. limited active shoulder ROM due to pain) Back exam: Present: normal inspection Skin exam: Present: warm, dry, normal color, abrasion (right elbow no active bleeding) Course Vital Signs 07/04/23 07/04/23 18:42 20:34 Temperature 98.1 F 97.9 F Pulse Rate 61 60 Respiratory 18 20 Rate Blood Pressure 155/83 138/79 O2 Sat by Pulse 97 98 Oximetry Medical Decision Making - Medical Decision Making Was pt. sent in by a medical professional or institution (, PA, STAFF RADIOGRAPHER, urgent care, hospital, or long term...) When possible be specific @ -No Did you speak to anyone other than the patient for history (EMS, parent, family, police, friend...)? What history was obtained from this source @ -No Did you review nursing and triage notes (agree or disagree)? Why? @ -I reviewed and agree with nursing and triage notes Were old charts reviewed (outside hosp., previous admission, EMS record, old EKG, old radiological studies, urgent care reports/EKG's, long term records)? Report findings @ -No old charts were reviewed Differential Diagnosis (chest pain, altered mental status, abdominal pain women, abdominal pain men, vaginal bleeding, weakness, fever, dyspnea, syncope, headache, dizziness, GI bleed, back pain, seizure, CVA, palpatations, mental health, musculoskeletal)? @ -Differential Musculoskeletal Muscular strain, contusion, ligament sprain, fracture, arthritis, septic arthritis, bursitis, cellulitis, muscle spasm, nerve compression, DVT, arterial occlusion, herpes zoster, electrolyte abnormality, tumor.... This is not meant to be in all inclusive list EKG interpreted by me (3pts min.). @ -None X-rays interpreted by me (1pt min.). @ -Right shoulder x-ray interpreted by me significant for a comminuted right proximal humeral fracture with intra-articular extension. Right hand and elbow x-ray negative for acute process. CT interpreted by me (1pt min.). @ -None done U/S interpreted by me (1pt. min.). @ -None done What testing was considered but not performed or refused? (CT, X-rays, U/S, labs)? Why? @ -None What meds were considered but not given or refused? Why? @ -None Did you discuss the management of the patient with other professionals (professionals i.e. , PA, STAFF RADIOGRAPHER, lab, RT, psych nurse, social work professor, section cutter, teacher, stream control officer, rn case mgr)? Give summary @ -No Was smoking cessation discussed for >3mins.? @ -No Was critical care preformed (if so, how long)? @ -No Were there social determinants of health that impacted care today? How? (Homelessness, low income, unemployed, alcoholism, drug addiction, transportation, low edu. Level, literacy, decrease access to med. care, group home, rehab)? @ -No Was there de-escalation of care discussed even if they declined (Discuss DNR or withdrawal of care, Hospice)? DNR status @ -No What co-morbidities impacted this encounter? (DM, HTN, Smoking, COPD, CAD, Cancer, CVA, ARF, Chemo, Hep., AIDS, mental health diagnosis, sleep apnea, morbid obesity)? @ -Multiple sclerosis, obesity, chronic pain Was patient admitted / discharged? Hospital course, mention meds given and route, prescriptions, significant lab abnormalities, going to OR and other pertinent info. @ -Discharged. 57-year-old female presenting to the ER with a chief complaint of right shoulder injury s/p fall from standing. History and physical exam completed. Vitals stable. Patient no signs of acute distress and nontoxic- appearing. Right upper extremity neurovascular intact. X-rays obtained significant for a right proximal humerus fracture. Patient placed in a shoulder immobilizer. Patient received IM morphine for pain control. Results discussed with patient, all questions answered. I advised close follow-up with orthopedics, referral given. Patient is prescribed fentanyl patches and Percocet outpatient for pain control due to MS. Return parameters discussed. Patient discharged stable condition with follow-up to orthopedics. Patient and family verbally expressed understanding and agreement with care plan. Case discussed with ED attending, Dr. Larose. Undiagnosed new problem with uncertain prognosis? @ -No Drug Therapy requiring intensive monitoring for toxicity (Heparin, Nitro, Insulin, Cardizem)? @ -No Were any procedures done? @ -No Diagnosis/symptom? @ -Proximal humerus fracture Acute, or Chronic, or Acute on Chronic? @ -Acute Uncomplicated (without systemic symptoms) or Complicated (systemic symptoms)? @ -Uncomplicated Side effects of treatment? @ -No Exacerbation, Progression, or Severe Exacerbation? @ -No Poses a threat to life or bodily function? How? (Chest pain, USA, SC, pneumonia, PE, COPD, DKA, ARF, appy, cholecystitis, CVA, Diverticulitis, Homicidal, Suicidal, threat to staff... and all critical care pts) @ -No - Radiology Data Radiology results: report reviewed, image reviewed Disposition Clinical Impression: Proximal humeral fracture Disposition: HOME SELF-CARE Condition: Stable Instructions (If sedation given, give patient instructions): Fall Prevention for Older Adults (ED) Additional Instructions: Follow-up with orthopedics in the next 1-2 days. Return to the ER for any new or worsening symptoms. Is patient prescribed a controlled substance at d/c from ED?: No Referrals: Suresh Doty [Primary Care Provider] - 1-2 days Charly Stuart MD [Medical Doctor] - 1-2 days Time of Disposition: 20:12
--- NOTE | 2023-07-04 19:55 | XR ---
EXAMINATION TYPE: XR shoulder complete RT DATE OF EXAM: 07/04/2023 7:46 PM CLINICAL INDICATION:Female, 57 years old with history of pain s/p fall; [facility] COMPARISON: None TECHNIQUE: XR shoulder complete RT; examined in AP, internally rotated and scapular Y projections. FINDINGS/IMPRESSION: Comminuted right proximal humeral fracture with intra-articular extension. Mild displacement of multi ple fragments.
--- NOTE | 2023-07-04 19:56 | XR ---
EXAMINATION TYPE: XR hand complete RT DATE OF EXAM: 07/04/2023 7:46 PM CLINICAL INDICATION:Female, 57 years old with history of pain; COMPARISON: None TECHNIQUE: XR hand complete RT Frontal, lateral and oblique views were obtained. FINDINGS: Normal alignment of the visualized joints. No acute osseous pathology is identified. No e vidence of soft tissue swelling. IMPRESSION: No acute osseous pathology.
--- NOTE | 2023-07-04 19:57 | XR ---
EXAMINATION TYPE: XR elbow limited RT DATE OF EXAM: 07/04/2023 7:46 PM CLINICAL INDICATION:Female, 57 years old with history of pain s/p fall; [facility] COMPARISON: None TECHNIQUE: XR elbow limited RT; elbow was examined in single obliqued lateral projections. FINDINGS/IMPRESSION: Limited single view only, no evidence for fracture. Consider repeat exam.
[2023-07-04] MEDS: MORPHINE SULFATE 2 MG/ML SYRINGE IM ONE (20:42)
[2023-07-04 21:38] VITALS: BP 138/79; PULSE 60; RESP 20; TEMP 97.9
== END 2023-07-04 20:50 | disposition home or self-care (01) ==
LOC: EC 18:12
DX: S42.201A Unspecified fracture of upper end of right humerus, initial encounter for closed fracture (principal); S50.311A Abrasion of right elbow, initial encounter; G35 Multiple sclerosis; E66.9 Obesity, unspecified; G89.29 Other chronic pain; Z88.8 Allergy status to other drugs, medicaments and biological substances; Z88.1 Allergy status to other antibiotic agents; Z68.42 Body mass index [BMI] 45.0-49.9, adult; W10.9XXA Fall (on) (from) unspecified stairs and steps, initial encounter; Y93.01 Activity, walking, marching and hiking
CPT/HCPCS: 99283; 96372; 73030; 73070; 73130; L3670; J2270

== ENCOUNTER → 2024-06-27 | Outpatient (CLI) | payer MEDICARE ==
[2024-06-27 18:12] LABS: HCT 30.2 % (37.2-46.3); HGB 8.8 g/dL (12.0-15.0); MCH 22.7 pg (27.0-32.0); MCHC 29.1 g/dL (32.0-37.0); MCV 77.8 FL (80.0-97.0); Mean Platelet Volume 8.8 FL (9.5-12.2); NRBC Per 100 WBC 0 X 10*3/uL (0.00-0.01); Platelet Count 466 X 10*3/uL (140-440); RBC 3.88 X 10*6/uL (4.10-5.20); RDW 17.8 % (11.5-14.5); WBC 8.98 X 10*3/uL (4.50-10.00)
[2024-06-27 18:45] LABS: % Iron Saturation 4.56 (12.00-45.00); ALT 17 U/L (8-44); AST 24 U/L (13-35); Albumin 4.1 g/dL (3.8-4.9); Albumin/Globulin Ratio 1.64 Ratio (1.60-3.17); Alkaline Phosphatase 111 U/L (41-126); BUN/Creat Ratio 14.57 Ratio (12.00-20.00); Blood Urea Nitrogen 20.4 mg/dL (9.0-27.0); Carbon Dioxide 25.9 mmol/L (21.6-31.8); Chloride 104 mmol/L (96-109); Chol/HDL Ratio 3.24 Ratio; Ferritin 6.4 ng/mL (10.0-291.0); Globulin 2.5 g/dL (1.6-3.3); Glucose 82 mg/dL (70-110); Iron 22 UG/DL (50-170); LDL Cholesterol,Calculated 115.8 mg/dL (0.0-131.0); Magnesium 2.3 mg/dL (1.5-2.4); Phosphorus 4.1 mg/dL (2.4-5.1); Potassium 4.3 mmol/L (3.5-5.5); Sodium 143 mmol/L (135-145); Total Bilirubin <0.2 mg/dL (0.3-1.2); Total Iron Binding Capacity 482 UG/DL (228-460); Total Protein 6.6 g/dL (6.2-8.2)
[2024-06-28 09:01] LABS: Zinc, Serum 67 ug/dL (60-130)
[2024-06-29 07:18] LABS: Vitamin A 76 ug/dL (38-106)
== END | disposition home or self-care (01) ==
LOC: LABWHC1 15:20
PROVIDERS: ATTEND Surgery Plastic and Reconstructive Surgery
DX: E66.01 Morbid (severe) obesity due to excess calories (principal); D50.8 Other iron deficiency anemias; K91.2 Postsurgical malabsorption, not elsewhere classified; E45 Retarded development following protein-calorie malnutrition; E44.0 Moderate protein-calorie malnutrition; K74.1 Hepatic sclerosis; E55.9 Vitamin D deficiency, unspecified; E89.1 Postprocedural hypoinsulinemia; N19 Unspecified kidney failure; T56.894A Toxic effect of other metals, undetermined, initial encounter; K50.90 Crohn's disease, unspecified, without complications
CPT/HCPCS: 36415; 80053; 80061; 82306; 82525; 82607; 82728; 82746; 83036; 83540; 83550; 83735; 83970; 84100; 84134; 84255; 84425; 84443; 84590; 84630; 85027

== ENCOUNTER → 2024-06-28 | Outpatient (CLI) | payer MEDICARE ==
[2024-06-28 16:42] LABS: INR 0.9 (<1.2); Prothrombin Time 10.5 sec (10.0-12.5)
[2024-06-28 17:04] LABS: Partial Thromboplastin Time 21.6 sec (22.0-30.0)
== END | disposition home or self-care (01) ==
LOC: LABWHC1 15:53
PROVIDERS: ATTEND Surgery Plastic and Reconstructive Surgery
DX: E66.01 Morbid (severe) obesity due to excess calories (principal); E89.1 Postprocedural hypoinsulinemia; D50.8 Other iron deficiency anemias; E45 Retarded development following protein-calorie malnutrition; E44.0 Moderate protein-calorie malnutrition; E55.9 Vitamin D deficiency, unspecified; K74.1 Hepatic sclerosis; N19 Unspecified kidney failure; T56.894A Toxic effect of other metals, undetermined, initial encounter; K50.90 Crohn's disease, unspecified, without complications
CPT/HCPCS: 36415; 85610; 85730

== ENCOUNTER 2024-07-16 15:50 | Inpatient (IN) | payer MEDICARE ==
--- NOTE | 2024-07-16 16:28 | ED ---
General Adult HPI - General Chief complaint: Shortness of Breath Stated complaint: SOB Time Seen by Provider: 07/16/24 16:07 Source: patient, RN/MD, RN notes reviewed Mode of arrival: ambulatory Limitations: no limitations - History of Present Illness Initial comments: Patient is a 58-year-old female present to the emergency department with fatigue and dyspnea over the past 4 days. Patient does have anemia and scheduled to have transfusion of iron however unclear when this will happen. Patient is unclear what her chronic hemoglobin level is. Patient does have some exertional chest discomfort that feels like pressure. Also gets some of this in her neck. Patient has very rare cough. No new swelling. Patient is having significant fatigue. - Related Data Home Medications Medication Instructions Recorded Confirmed Baclofen [Lioresal] 20 mg PO TID 11/01/13 06/27/24 Montelukast [Singulair] 10 mg PO HS 12/19/13 06/27/24 Melatonin 10 mg PO HS 02/14/15 06/27/24 Multivitamins, Thera [Multivitamin 1 tab PO DAILY 02/14/15 06/27/24 (formulary)] Clopidogrel [Plavix] 75 mg PO DAILY 09/25/15 06/27/24 Vitamin A (10,000 Dn=8920 Mcg) 10,000 unit PO HS 11/24/15 06/27/24 Calcium Carbonate/Vitamin D3 1 tab PO BID 03/18/18 06/27/24 [Calcium 600-Vit D3 400 Caplet] DULoxetine HCL [Cymbalta] 60 mg PO BID 03/18/18 06/27/24 Gabapentin [Neurontin] 900 mg PO Q8H 03/18/18 06/27/24 Aspirin EC [Ecotrin] 325 mg PO DAILY 09/19/18 06/27/24 Biotin 5,000 mcg PO DAILY 09/19/18 06/27/24 Fludrocortisone [Florinef] 0.5 tab PO MOWEFR 09/19/18 06/27/24 Levothyroxine Sodium [Synthroid] 50 mcg PO DAILY 09/19/18 06/27/24 Vitamin B Complex 1 cap PO DAILY 09/19/18 06/27/24 fentaNYL 25MCG/HR PATCH [Duragesic 25 mcg TRANSDERM Q72H 09/19/18 06/27/24 25MCG/HR] oxyCODONE-APAP 10-325MG [Percocet 1 tab PO Q12H PRN 09/19/18 06/27/24 10-325 mg] rOPINIRole HCL [Requip] 0.5 mg PO BID 09/19/18 06/27/24 Albuterol Nebulized [Ventolin 2.5 mg INHALATION Q6H PRN 06/27/24 06/27/24 Nebulized] Ascorbic Acid [Vitamin C with Radha 1 tab PO DAILY 06/27/24 06/27/24 Hips] Cetirizine HCl 1 tab PO DAILY 06/27/24 06/27/24 Dalfampridine [Dalfampridine ER] 1 tab PO BID 06/27/24 06/27/24 Docusate [Colace] 1 cap PO DAILY PRN 06/27/24 06/27/24 Famotidine [Pepcid] 1 tab PO BID 06/27/24 06/27/24 Furosemide [Lasix] 1 tab PO DAILY 06/27/24 06/27/24 Hydrocortisone [Cortef] 0.5 tab PO HS 06/27/24 06/27/24 Hydrocortisone [Cortef] 1 tab PO DAILY 06/27/24 06/27/24 Hydrocortisone [Cortef] 15 mg PO DAILY 06/27/24 06/27/24 Magnesium Oxide [Magnesium] 1 tab PO HS 06/27/24 06/27/24 Meclizine [Antivert] 1 tab PO DAILY PRN 06/27/24 06/27/24 Metoprolol Tartrate [Lopressor] 1 tab PO TID 06/27/24 06/27/24 Nystatin 100,000 Unit/gm Powd 1 applic TOPICAL DIRECTED PRN 06/27/24 06/27/24 [Mycostatin Powder] Ocrelizumab [Ocrevus] 1 vial IV Q6M 06/27/24 06/27/24 Omeprazole 20 mg PO DAILY 06/27/24 06/27/24 Zinc Gluconate [Zinc] 1 tab PO DAILY 06/27/24 06/27/24 hydrOXYzine HCL [Atarax] 1 tab PO TID 06/27/24 06/27/24 modafiniL 100 mg PO DAILY PRN 06/27/24 06/27/24 Allergies Allergy/AdvReac Type Severity Reaction Status Date / Time amlodipine besylate Allergy Swelling Verified 07/16/24 20:13 [From Norvasc] glatiramer acetate Allergy HIGH Verified 07/16/24 20:13 [From Copaxone] FEVER. PSYCHOTIC EPISODE PER PT,MENINGITIS pregabalin [From Lyrica] Allergy Unknown Verified 07/16/24 20:13 zolpidem tartrate Allergy FELT LIKE Verified 07/16/24 20:13 [From Ambien] SPIDERS CRAWLING ON HER SKIN vancomycin AdvReac Severe Hypotension Verified 07/16/24 20:13 Review of Systems ROS Statement: Those systems with pertinent positive or pertinent negative responses have been documented in the HPI. ROS Other: All systems not noted in ROS Statement are negative. Constitutional: Denies: fever Eyes: Denies: eye pain ENT: Denies: ear pain Respiratory: Reports: as per HPI, dyspnea Cardiovascular: Reports: as per HPI, chest pain Gastrointestinal: Denies: abdominal pain Genitourinary: Denies: dysuria Neurological: Denies: weakness Past Medical History Past Medical History: Asthma, CVA/TIA, Eye Disorder, GERD/Reflux, Hyperlipidemia, Hypertension, Neurologic Disorder, Osteoarthritis (OA), Skin Disorder, Sleep Apnea/CPAP/BIPAP, Thyroid Disorder Additional Past Medical History / Comment(s): SSS. [employer]. MS, RELAPSE SINCE 07/2017. DDD, Neuropathy ARMS/LEGS. Stroke 2002-sl lt sided weakness; SEV TIA'S. HX KIDNEY STONES. CHRONIC PAIN LOWER BACK, HIPS, LEGS. HX Psoriasis. Meniere's Disease. Sees shadows rt eye, intermittent double vision lt eye, "optic neuritis.' Adrenal insufficiency. SEE H&P. History of Any Multi-Drug Resistant Organisms: None Reported Past Surgical History: Bariatric Surgery, Cholecystectomy, Hernia Repair, Orthopedic Surgery, Pacemaker Additional Past Surgical History / Comment(s): ORIF LT ANKLE; Pin removed). Bat june Pacemaker replaced 2009, LAPAROSCOPIC GASTRIC SLEEVE WITH LYSIS OF ADHESIONS. Panniculectomy/Ventral hernia repair - REVISION PANNICULECTOMY. Past Anesthesia/Blood Transfusion Reactions: Motion Sickness Additional Past Anesthesia/Blood Transfusion Reaction / Comment(s): no hx blood transfusuion Type of Cardiac Device: Permanent Pacemaker Device Placement Date:: 2001 Past Psychological History: Anxiety, Depression Smoking Status: Never smoker Past Alcohol Use History: None Reported Past Drug Use History: None Reported - Past Family History Mother Family Medical History: Hypertension, Thyroid Disorder Daughter(s) Family Medical History: Deep Vein Thrombosis (DVT), Seizure Disorder Additional Family Medical History / Comment(s): crohn's disease Father History Unknown: Yes Family Medical History: Unable to Obtain Sister(s) Family Medical History: Hypertension Additional Family Medical History / Comment(s): prolonged QT syndrome,crohn's disease Brother(s) Family Medical History: Hypertension Son(s) Family Medical History: No Reported History Additional Family Medical History / Comment(s): ITP General Exam Limitations: no limitations General appearance: alert, in no apparent distress Head exam: Present: normocephalic Eye exam: Present: normal appearance Neck exam: Present: normal inspection Respiratory exam: Present: normal lung sounds bilaterally Cardiovascular Exam: Present: regular rate, normal rhythm, normal heart sounds GI/Abdominal exam: Present: soft. Absent: tenderness Extremities exam: Present: normal inspection. Absent: pedal edema, calf tenderness Neurological exam: Present: alert Psychiatric exam: Present: normal affect, normal mood Skin exam: Present: normal color Course Vital Signs 07/16/24 07/16/24 07/16/24 15:52 18:27 20:09 Temperature 97.6 F Pulse Rate 80 63 66 Respiratory 22 20 19 Rate Blood Pressure 129/86 123/72 O2 Sat by Pulse 94 L 96 94 L Oximetry EKG Findings - EKG Results: EKG: interpreted by ERMD (Paced rhythm with a rate of 60.), normal axis, normal QRS, normal ST/T Medical Decision Making - Medical Decision Making Was pt. sent in by a medical professional or institution (, PA, TELLER, urgent care, hospital, or alf...) When possible be specific @ -Patient was sent by Dr. Mar Did you speak to anyone other than the patient for history (EMS, parent, family, police, friend...)? What history was obtained from this source @ -I did speak to Dr. Pantoja who is concern for anginal equivalent Did you review nursing and triage notes (agree or disagree)? Why? @ -I reviewed and agree with nursing and triage notes Were old charts reviewed (outside hosp., previous admission, EMS record, old EKG, old radiological studies, urgent care reports/EKG's, alf records)? Report findings @ -No old charts were reviewed Differential Diagnosis (chest pain, altered mental status, abdominal pain women, abdominal pain men, vaginal bleeding, weakness, fever, dyspnea, syncope, headache, dizziness, GI bleed, back pain, seizure, CVA, palpatations, mental health, musculoskeletal)? @ -Differential Chest Pain: Stable Angina, Unstable Angina, STEMI, NSTEMI Aortic Dissection, Pneumothorax, Musculoskeletal, Esophageal Spasm GERD, Cholecystitis, Pancreatitis, Zoster, this is not meant to be an all-inclusive list. EKG interpreted by me (3pts min.). @ -As above X-rays interpreted by me (1pt min.). @ -Chest x-ray shows no acute process CT interpreted by me (1pt min.). @ -CT chest with out evidence of pulmonary embolism U/S interpreted by me (1pt. min.). @ -None done What testing was considered but not performed or refused? (CT, X-rays, U/S, labs)? Why? @ -None What meds were considered but not given or refused? Why? @ -None Did you discuss the management of the patient with other professionals (pro fessionals i.e. , PA, TELLER, lab, RT, psych nurse, delinquency prevention social worker, economics professor, teacher, disabilities services officer, casework supervisor)? Give summary @ -Case was discussed with Dr. Ger Mcclelland who will admit covering Dr. Was smoking cessation discussed for >3mins.? @ -No Was critical care preformed (if so, how long)? @ -No Were there social determinants of health that impacted care today? How? (Homelessness, low income, unemployed, alcoholism, drug addiction, transportation, low edu. Level, literacy, decrease access to med. care, detention, rehab)? @ -No Was there de-escalation of care discussed even if they declined (Discuss DNR or withdrawal of care, Hospice)? DNR status @ -No What co-morbidities impacted this encounter? (DM, HTN, Smoking, COPD, CAD, Cancer, CVA, ARF, Chemo, Hep., AIDS, mental health diagnosis, sleep apnea, morbid obesity)? @ -Anemia Was patient admitted / discharged? Hospital course, mention meds given and route, prescriptions, significant lab abnormalities, going to OR and other pertinent info. @ -Patient has exertional dyspnea and some chest discomfort. Initial troponin unremarkable. Patient will be admitted with cardiac consult. Patient reevaluated and updated. Admission orders written. Undiagnosed new problem with uncertain prognosis? @ -No Drug Therapy requiring intensive monitoring for toxicity (Heparin, Nitro, Insulin, Cardizem)? @ -No Were any procedures done? @ -No Diagnosis/symptom? @ -Chest pain Acute, or Chronic, or Acute on Chronic? @ -Acute Uncomplicated (without systemic symptoms) or Complicated (systemic symptoms)? @ -Complicated with anemia Side effects of treatment? @ -No Exacerbation, Progression, or Severe Exacerbation? @ -No Poses a threat to life or bodily function? How? (Chest pain, [place], [place], pneumonia, PE, COPD, DKA, ARF, appy, cholecystitis, CVA, Diverticulitis, Homicidal, Suicidal, threat to staff... and all critical care pts) @ -No - Lab Data Result diagrams: 07/16/24 17:06 07/16/24 17:06 Lab Results 07/16/24 07/16/24 07/16/24 Range/Units 17:06 17:06 17:06 WBC 7.25 (4.50-10.00) 10*3/uL RBC 3.58 L (4.10-5.20) 10*6/uL Hgb 8.3 L (12.0-15.0) g/dL Hct 27.0 L (37.2-46.3) % MCV 75.4 L (80.0-97.0) fL MCH 23.2 L (27.0-32.0) pg MCHC 30.7 L (32.0-37.0) g/dL Plt Count 423 (140-440) 10*3/uL MPV 9.1 L (9.5-12.2) fL Immature Gran % (Auto) 0.1 % Neutrophils % 71.7 % Lymphocytes % 13.1 % Monocytes % 11.6 % Eosinophils % 2.8 % Basophils % 0.7 % Immature Gran # 0.01 (0.00-0.04) 10*3/uL Neutrophils # 5.20 (1.80-7.70) 10*3/uL Lymphocytes # 0.95 (0.90-5.00) 10*3/uL Monocytes # 0.84 (0.20-1.00) 10*3/uL Eosinophils # 0.20 (0.04-0.35) 10*3/uL Basophils # 0.05 (0.00-0.10) 10*3/uL PT 10.9 (10.0-12.5) sec INR 1.0 (<1.2) APTT 22.3 (22.0-30.0) sec D-Dimer 0.71 H (<0.60) mg/L FEU Sodium 138 (137-145) mmol/L Potassium 4.4 (3.5-5.1) mmol/L Chloride 101 (98-107) mmol/L Carbon Dioxide 28 (22-30) mmol/L Anion Gap 9 mmol/L BUN 24 H (7-17) mg/dL Creatinine 1.17 H (0.52-1.04) mg/dL Est GFR (CKD-EPI)AfAm 60 (>60 ml/min/1.73 sqM) Est GFR (CKD-EPI)NonAf 52 (>60 ml/min/1.73 sqM) Glucose 94 (74-99) mg/dL Plasma Lactic Acid Harshil (0.7-2.0) mmol/L Calcium 8.8 (8.4-10.2) mg/dL Magnesium 2.5 H (1.6-2.3) mg/dL Total Bilirubin 0.4 (0.2-1.3) mg/dL AST 47 H (14-36) U/L ALT 24 (4-34) U/L Alkaline Phosphatase 113 (38-126) U/L Troponin I (0.000-0.034) ng/mL NT-Pro-B Natriuret Pep 828 pg/mL Total Protein 7.0 (6.3-8.2) g/dL Albumin 4.1 (3.5-5.0) g/dL Influenza Type A (PCR) (Not Detectd) Influenza Type B (PCR) (Not Detectd) RSV (PCR) (Not Detectd) SARS-CoV-2 (PCR) (Not Detectd) 07/16/24 07/16/24 07/16/24 Range/Units 17:06 17:06 17:06 WBC (4.50-10.00) 10*3/uL RBC (4.10-5.20) 10*6/uL Hgb (12.0-15.0) g/dL Hct (37.2-46.3) % MCV (80.0-97.0) fL MCH (27.0-32.0) pg MCHC (32.0-37.0) g/dL Plt Count (140-440) 10*3/uL MPV (9.5-12.2) fL Immature Gran % (Auto) % Neutrophils % % Lymphocytes % % Monocytes % % Eosinophils % % Basophils % % Immature Gran # (0.00-0.04) 10*3/uL Neutrophils # (1.80-7.70) 10*3/uL Lymphocytes # (0.90-5.00) 10*3/uL Monocytes # (0.20-1.00) 10*3/uL Eosinophils # (0.04-0.35) 10*3/uL Basophils # (0.00-0.10) 10*3/uL PT (10.0-12.5) sec INR (<1.2) APTT (22.0-30.0) sec D-Dimer (<0.60) mg/L FEU Sodium (137-145) mmol/L Potassium (3.5-5.1) mmol/L Chloride (98-107) mmol/L Carbon Dioxide (22-30) mmol/L Anion Gap mmol/L BUN (7-17) mg/dL Creatinine (0.52-1.04) mg/dL Est GFR (CKD-EPI)AfAm (>60 ml/min/1.73 sqM) Est GFR (CKD-EPI)NonAf (>60 ml/min/1.73 sqM) Glucose (74-99) mg/dL Plasma Lactic Acid Harshil 0.8 (0.7-2.0) mmol/L Calcium (8.4-10.2) mg/dL Magnesium (1.6-2.3) mg/dL Total Bilirubin (0.2-1.3) mg/dL AST (14-36) U/L ALT (4-34) U/L Alkaline Phosphatase (38-126) U/L Troponin I <0.012 (0.000-0.034) ng/mL NT-Pro-B Natriuret Pep pg/mL Total Protein (6.3-8.2) g/dL Albumin (3.5-5.0) g/dL Influenza Type A (PCR) Not Detected (Not Detectd) Influenza Type B (PCR) Not Detected (Not Detectd) RSV (PCR) Not Detected (Not Detectd) SARS-CoV-2 (PCR) Not Detected (Not Detectd) Disposition Clinical Impression: Chest pain Disposition: ADMITTED IP TO THIS HOSP Is patient prescribed a controlled substance at d/c from ED?: No Referrals: Suresh Doty [Primary Care Provider] - 1-2 days Time of Disposition: 20:19
[2024-07-16 17:20] LABS: Basophils # (A) 0.05 10*3/uL (0.00-0.10); Basophils % (A) 0.7 %; Eosinophils % (A) 2.8 %; HGB 8.3 g/dL (12.0-15.0); Lymphocytes # (A) 0.95 10*3/uL (0.90-5.00); Lymphocytes % (A) 13.1 %; MCH 23.2 pg (27.0-32.0); MCHC 30.7 g/dL (32.0-37.0); MCV 75.4 fL (80.0-97.0); Mean Platelet Volume 9.1 fL (9.5-12.2); Monocytes # (A) 0.84 10*3/uL (0.20-1.00); Monocytes % (A) 11.6 %; Neutrophils % (A) 71.7 %; Platelet Count 423 10*3/uL (140-440); RBC 3.58 10*6/uL (4.10-5.20); RDW 17.4 % (11.5-14.5); WBC 7.25 10*3/uL (4.50-10.00)
[2024-07-16 17:34] LABS: ALT 24 U/L (4-34); AST 47 U/L (14-36); African American GFR (CKD) 60 (>60 ml/min/1.73 sqM); Albumin 4.1 g/dL (3.5-5.0); Alkaline Phosphatase 113 U/L (38-126); Anion Gap 9 mmol/L; Blood Urea Nitrogen 24 mg/dL (7-17); Calcium 8.8 mg/dL (8.4-10.2); Carbon Dioxide 28 mmol/L (22-30); Chloride 101 mmol/L (98-107); Glucose 94 mg/dL (74-99); Magnesium 2.5 mg/dL (1.6-2.3); Non-African American GFR(CKD) 52 (>60 ml/min/1.73 sqM); Potassium 4.4 mmol/L (3.5-5.1); Sodium 138 mmol/L (137-145); Total Bilirubin 0.4 mg/dL (0.2-1.3)
[2024-07-16 17:37] LABS: Partial Thromboplastin Time 22.3 sec (22.0-30.0); Prothrombin Time 10.9 sec (10.0-12.5)
--- NOTE | 2024-07-16 17:40 | XR ---
EXAMINATION TYPE: XR chest 2V DATE OF EXAM: 07/16/2024 5:30 PM COMPARISON: Chest radiographs from 10/08/2023 TECHNIQUE: XR chest 2V Frontal and lateral views of the chest. CLINICAL INDICATION:Female, 58 years old with history of difficulty breathing; FINDINGS: Lungs/Pleura: There is no evidence of pleural effusion, focal consolidation, or pneumothorax. Right basilar linear atelectasis. Chronic elevation of the right hemidiaphragm. Pulmonary vascularity: Unremarkable. Heart/mediastinum: Cardiomediastinal silhouette is unremarkable. Two lead cardiac conduction device o verlying the left hemithorax with lead tips projecting over the right ventricle and right atrium. Musculoskeletal: No acute osseous pathology. Remote fracture deformity of the right proximal humerus. IMPRESSION: Chronic changes without acute pulmonary process. No significant change from prior. [facility], , 07/16/2024 5:38 PM
[2024-07-16 17:42] LABS: NT-Pro-B-Type Natriuretic Pept 828 pg/mL
[2024-07-16 19:00] LABS: Influenza A Not Detected (Not Detectd); Influenza B Not Detected (Not Detectd); RSV Not Detected (Not Detectd)
--- NOTE | 2024-07-16 19:45 | CT ---
EXAMINATION TYPE: CT angio chest DATE OF EXAM: 07/16/2024 7:20 PM COMPARISON: 03/18/2023 CLINICAL INDICATION: Female, 58 years old with history of exertional jamie; elevated dimer TECHNIQUE/CONTRAST: CTA scan of the thorax is performed with IV Contrast, patient injected with 100ml mL of Isovue 370, M IP images are created and reviewed these are created on a separate workstation.. CT DLP: 1164.2 mGycm, Automated exposure control for dose reduction was used. FINDINGS: Lungs/Pleura: No evidence of focal consolidation, pleural effusion or pneumothorax. Airway: Large airways are patent. Heart: Size within normal limits. No significant coronary artery calcifications. Vasculature: There is no evidence for a filling defect within the pulmonary vasculature to suggest ac [place] pulmonary embolism. The pulmonary artery is of normal size. Cardiac conduction leads terminatin g in right ventricle and right atrium. Mediastinum: No gross evidence of adenopathy. Musculoskeletal: No acute osseous abnormalities remote fracture of the right proximal hunodes: Unrema rkable. Lower neck: No significant findings. Upper Abdomen: No significant findings. IMPRESSION: 1. No evidence of pulmonary embolism. 2. Remote injury to the right proximal humerus. [facility], , 07/16/2024 7:42 PM
[2024-07-16] MEDS ORDERED: NITROGLYCERIN SL TABS 0.4 MG TAB SUBLINGUAL PRN (20:19)
[2024-07-16] MEDS: ASPIRIN 81 MG PO STA (20:48)
[2024-07-16] MEDS: BACLOFEN 10 MG TAB PO PRN (23:04)
[2024-07-16] MEDS: DULoxetine HCL 60 MG CAPSULE.DR PO SCH (23:04)
[2024-07-16] MEDS: GABAPENTIN 300 MG CAP PO SCH (23:04)
[2024-07-17] MEDS: oxyCODONE-APAP 10-325MG 1 EACH TAB PO PRN (05:38)
[2024-07-17] MEDS: ASPIRIN 325 MG TAB PO SCH (08:43)
[2024-07-17 08:47] LABS: Chol/HDL Ratio 3.78 Ratio; LDL Cholesterol,Calculated 132.6 mg/dL (0.0-131.0); VLDL Calculation 18.88 mg/dL (5.00-40.00)
--- NOTE | 2024-07-17 10:32 | P.CRDCN ---
History of Present Illness History of present illness: HISTORY OF PRESENTING ILLNESS This is a pleasant 58-year-old female past medical history significant for sick sinus syndrome status post ruminant pacemaker implantation, hypertensi on and morbid obesity. She follows in the office with Dr. Watts. We have been asked to see in consultation for shortness of breath. She indicates she has been experiencing shortness of breath for the past couple of days with pain in her shoulders. She is very sedentary and admits that she does very minimal activity at home. She had a history of bariatric surgery in the past and is following now with Dr. Amato for further weight loss opportunities. EKG reveals atrial paced rhythm heart rate of 60. Chest x-ray is negative for any acute cardiopulmonary process, CTA negative for pulmonary embolism. Laboratory data reviewed, hemoglobin 8.3, creatinine 1.17, troponin negative x 3 and NT proBNP 828. Most recent stress test in the office was a Lexiscan stress test in 2021 with an ejection fraction of 67% and no reversible ischemia. REVIEW OF SYSTEMS At the time of my exam: CONSTITUTIONAL: Denies fever or chills. CARDIOVASCULAR: Denies chest pain, shortness of breath, orthopnea, PND or palpitations. RESPIRATORY: Denies cough. GASTROINTESTINAL: Denies abdominal pain, diarrhea, constipation, nausea or vomiting. MUSCULOSKELETAL: Denies myalgias. NEUROLOGIC: Denies numbness, tingling, headache or weakness. ENDOCRINE: Denies fatigue, weight change, polydipsia or polyurina. GENITOURINARY: Denies burning, hematuria or urgency with micturation. HEMATOLOGIC: Denies history of anemia or bleeding. PHYSICAL EXAMINATION Blood pressure 108/56 heart rate 60 afebrile and maintaining oxygen saturation on nasal cannula. CONSTITUTIONAL: No apparent distress. HEENT: Head is normocephalic. Pupils are equal, round. Sclerae anicteric. Mucous membranes of the mouth are moist. No JVD. No carotid bruit. CHEST EXAMINATION: Lungs are clear to auscultation. No chest wall tenderness is noted on palpation or with deep breathing. HEART EXAMINATION: Regular rate and rhythm. S1, S2 heard. No murmurs, gallops or rub. ABDOMEN: Soft, nontender. EXTREMITIES: 2+ peripheral pulses, no lower extremity edema and no calf tenderness. NEUROLOGIC EXAMINATION: Patient is awake, alert and oriented x3. ASSESSMENT Chest pain, atypical Sick sinus syndrome status post permanent pacemaker implantation Hypertension Morbid obesity PLAN An acute coronary event has been ruled out. Pain is atypical for angina. Echocardiogram has been obtained and will be reviewed. Advised the patient to get up and walk around and eat breakfast. She can be discharged home and follow-up as an outpatient with Dr. Deshpande. Thank you kindly for this consultation. Nurse Practitioner note has been reviewed, I agree with a documented findings and plan of care. Patient was seen and examined. Past Medical History Past Medical History: Asthma, CVA/TIA, Eye Disorder, GERD/Reflux, Hyperlipidemia, Hypertension, Neurologic Disorder, Osteoarthritis (OA), Skin Disorder, Sleep Apnea/CPAP/BIPAP, Thyroid Disorder Additional Past Medical History / Comment(s): SSS. GUIDANT PACEMAKER. MS, RELAPSE SINCE 07/2017. DDD, Neuropathy ARMS/LEGS. Stroke 2002-sl lt sided weakness; SEV TIA'S. HX KIDNEY STONES. CHRONIC PAIN LOWER BACK, HIPS, LEGS. HX Psoriasis. Meniere's Disease. Sees shadows rt eye, intermittent double vision lt eye, "optic neuritis.' Adrenal insufficiency. SEE DR Roberts. History of Any Multi-Drug Resistant Organisms: None Reported Past Surgical History: Bariatric Surgery, Cholecystectomy, Hernia Repair, Orthopedic Surgery, Pacemaker Additional Past Surgical History / Comment(s): ORIF LT ANKLE; Pin removed). Battery Pacemaker replaced 2009, LAPAROSCOPIC GASTRIC SLEEVE WITH LYSIS OF ADHESIONS. Panniculectomy/Ventral hernia repair - REVISION PANNICULECTOMY. Past Anesthesia/Blood Transfusion Reactions: Motion Sickness Additional Past Anesthesia/Blood Transfusion Reaction / Comment(s): no hx blood transfusuion Type of Cardiac Device: Permanent Pacemaker Device Placement Date:: 2001 Past Psychological History: Anxiety, Depression Smoking Status: Never smoker Past Alcohol Use History: None Reported Past Drug Use History: None Reported - Past Family History Mother Family Medical History: Hypertension, Thyroid Disorder Daughter(s) Family Medical History: Deep Vein Thrombosis (DVT), Seizure Disorder Additional Family Medical History / Comment(s): crohn's disease Father History Unknown: Yes Family Medical History: Unable to Obtain Sister(s) Family Medical History: Hypertension Additional Family Medical History / Comment(s): prolonged QT syndrome,crohn's disease Brother(s) Family Medical History: Hypertension Son(s) Family Medical History: No Reported History Additional Family Medical History / Comment(s): ITP Medications and Allergies Home Medications Medication Instructions Recorded Confirmed Type Baclofen [Lioresal] 20 mg PO TID 11/01/13 07/16/24 History Montelukast [Singulair] 10 mg PO HS 12/19/13 07/16/24 History Multivitamins, Thera [Multivitamin 1 tab PO DAILY 02/14/15 07/16/24 History (formulary)] Clopidogrel [Plavix] 75 mg PO DAILY 09/25/15 07/16/24 History Vitamin A (10,000 Fc=6470 Mcg) 10,000 unit PO HS 11/24/15 07/16/24 History Calcium Carbonate/Vitamin D3 1 tab PO BID 03/18/18 07/16/24 History [Calcium 600-Vit D3 400 Caplet] DULoxetine HCL [Cymbalta] 60 mg PO BID 03/18/18 07/16/24 History Gabapentin [Neurontin] 900 mg PO TID 03/18/18 07/16/24 History Aspirin EC [Ecotrin] 325 mg PO DAILY 09/19/18 07/16/24 History Fludrocortisone [Florinef] 0.05 mg PO MOWEFR 09/19/18 07/16/24 History Levothyroxine Sodium [Synthroid] 50 mcg PO DAILY 09/19/18 07/16/24 History fentaNYL 25MCG/HR PATCH [Duragesic 1 patch TRANSDERM Q72H 09/19/18 07/16/24 History 25MCG/HR] oxyCODONE-APAP 10-325MG [Percocet 1 tab PO Q12H PRN 09/19/18 07/16/24 History 10-325 mg] rOPINIRole HCL [Requip] 0.5 mg PO BID 09/19/18 07/16/24 History Albuterol Nebulized [Ventolin 2.5 mg INHALATION RT-Q6H PRN 06/27/24 07/16/24 History Nebulized] Ascorbic Acid [Vitamin C with Radha 500 mg PO DAILY 06/27/24 07/16/24 History Hips] Cetirizine HCl 10 mg PO DAILY 06/27/24 07/16/24 History Dalfampridine [Dalfampridine ER] 10 mg PO BID 06/27/24 07/16/24 History Docusate [Colace] 100 mg PO DAILY PRN 06/27/24 07/16/24 History Famotidine [Pepcid] 20 mg PO BID 06/27/24 07/16/24 History Hydrocortisone [Cortef] 5 mg PO DAILY@1700 06/27/24 07/16/24 History Hydrocortisone [Cortef] 10 mg PO DAILY@1100 06/27/24 07/16/24 History Hydrocortisone [Cortef] 15 mg PO DAILY@0600 06/27/24 07/16/24 History Magnesium Oxide [Magnesium] 500 mg PO HS 06/27/24 07/16/24 History Meclizine [Antivert] 12.5 mg PO Q8H PRN 06/27/24 07/16/24 History Metoprolol Tartrate [Lopressor] 50 mg PO TID 06/27/24 07/16/24 History Nystatin 100,000 Unit/gm Powd 1 applic TOPICAL BID PRN 06/27/24 07/16/24 History [Mycostatin Powder] Ocrelizumab [Ocrevus] 1 dose IV Q6M 06/27/24 07/16/24 History Omeprazole 20 mg PO DAILY 06/27/24 07/16/24 History Zinc Gluconate [Zinc] 50 mg PO DAILY 06/27/24 07/16/24 History hydrOXYzine HCL [Atarax] 25 mg PO TID 06/27/24 07/16/24 History modafiniL 100 mg PO DAILY PRN 06/27/24 07/16/24 History Biotin [Biotin Disolve] 5,000 mcg PO DAILY 07/16/24 07/16/24 History Melatonin 10 mg PO HS 07/16/24 07/16/24 History Pyridoxine HCl (Vitamin B6) 100 mg PO DAILY 07/16/24 07/16/24 History [Vitamin B-6] Triamcinolone 0.5% Cream [Kenalog 1 applic TOPICAL BID PRN 07/16/24 07/16/24 History 0.5% Cream] Allergies Allergy/AdvReac Type Severity Reaction Status Date / Time amlodipine besylate Allergy Swelling Verified 07/16/24 20:13 [From Norvasc] glatiramer acetate Allergy HIGH Verified 07/16/24 20:13 [From Copaxone] FEVER. PSYCHOTIC EPISODE PER PT,MENINGITIS pregabalin [From Lyrica] Allergy Unknown Verified 07/16/24 20:13 zolpidem tartrate Allergy FELT LIKE Verified 07/16/24 20:13 [From Ambien] SPIDERS CRAWLING ON HER SKIN vancomycin AdvReac Severe Hypotension Verified 07/16/24 20:13 Physical Exam Vitals: Vital Signs Temp Pulse Resp BP Pulse Ox 07/17/24 08:42 98.2 F 60 18 108/56 94 L 07/17/24 05:38 97.9 F 66 17 106/54 97 07/17/24 00:00 60 14 95 07/16/24 23:06 98.2 F 65 20 132/82 95 07/16/24 20:09 66 19 94 L 07/16/24 18:27 63 20 123/72 96 07/16/24 15:52 97.6 F 80 22 129/86 94 L Intake and Output 07/16/24 07/17/24 07/17/24 22:59 06:59 14:59 Other: Weight 130.635 kg Results 07/16/24 17:06 07/16/24 17:06 Cardiac Enzymes 07/16/24 07/16/24 07/16/24 Range/Units 17:06 17:06 21:39 AST 47 H (14-36) U/L Troponin I <0.012 0.013 (0.000-0.034) ng/mL 07/17/24 Range/Units 00:54 AST (14-36) U/L Troponin I <0.012 (0.000-0.034) ng/mL Coagulation 07/16/24 Range/Units 17:06 PT 10.9 (10.0-12.5) sec APTT 22.3 (22.0-30.0) sec Lipids 07/16/24 Range/Units 17:06 Triglycerides 94.40 (0.00-149.00) mg/dL Cholesterol 206.00 H (0.00-200.00) mg/dL HDL Cholesterol 54.50 (40.00-60.00) mg/dL Cholesterol/HDL Ratio 3.78 Ratio CBC 07/16/24 Range/Units 17:06 WBC 7.25 (4.50-10.00) 10*3/uL RBC 3.58 L (4.10-5.20) 10*6/uL Hgb 8.3 L (12.0-15.0) g/dL Hct 27.0 L (37.2-46.3) % Plt Count 423 (140-440) 10*3/uL Comprehensive Metabolic Panel 07/16/24 Range/Units 17:06 Sodium 138 (137-145) mmol/L Potassium 4.4 (3.5-5.1) mmol/L Chloride 101 (98-107) mmol/L Carbon Dioxide 28 (22-30) mmol/L BUN 24 H (7-17) mg/dL Creatinine 1.17 H (0.52-1.04) mg/dL Glucose 94 (74-99) mg/dL Calcium 8.8 (8.4-10.2) mg/dL AST 47 H (14-36) U/L ALT 24 (4-34) U/L Alkaline Phosphatase 113 (38-126) U/L Total Protein 7.0 (6.3-8.2) g/dL Albumin 4.1 (3.5-5.0) g/dL Current Medications Generic Name Dose Route Start Last Admin Trade Name Freq PRN Reason Stop Dose Admin Aspirin 325 mg 07/17/24 09:00 07/17/24 08:43 Aspirin 325 Mg Tab PO 325 mg DAILY VAN Administration Baclofen 20 mg 07/16/24 22:08 07/16/24 23:04 Baclofen 10 Mg Tab PO 20 mg TID PRN Administration Muscle Spasm Duloxetine HCl 60 mg 07/16/24 22:15 07/17/24 08:43 Duloxetine Hcl 60 Mg Capsule.Dr PO 60 mg BID VAN Administration Gabapentin 300 mg 07/16/24 22:15 07/17/24 08:43 Gabapentin 300 Mg Cap PO 300 mg TID VAN Administration Nitroglycerin 0.4 mg 07/16/24 20:19 Nitroglycerin Sl Tabs 0.4 Mg Tab SUBLINGUAL Q5M PRN Chest Pain Oxycodone/Acetaminophen 1 each 07/16/24 22:09 07/17/24 05:38 Oxycodone-Apap 10-325mg 1 Each Tab PO 1 each Q12HR PRN Administration Pain Intake and Output 07/16/24 07/17/24 07/17/24 22:59 06:59 14:59 Other: Weight 130.635 kg 07/16/24 17:06 07/16/24 17:06
--- NOTE | 2024-07-17 10:42 | CA ---
Transthoracic Echo Report Name: Geetha Ruffin Age: 58 Gender: F : 1965 Exam Date: 07/17/2024 08:06 Exam Location: [place] [facility] Ht (in): 65 Wt (lb): 288 Ordering Physician: Raheem Glynn DO Attending/Referring Phys: Shearer Screen Measurer And Trimmer Windy Graham RDCS Procedure CPT: Indications: CP Cardiac Hx: Pacemaker Technical Quality: Fair Contrast 1: Total Dose (mL): Contrast 2: Total Dose (mL): MEASUREMENTS (Male / Female) Normal Values 2D ECHO LV Diastolic Diameter PLAX 4.6 cm 4.2 - 5.9 / 3.9 - 5.3 cm LV Systolic Diameter PLAX 3.0 cm IVS Diastolic Thickness 1.4 cm 0.6 - 1.0 / 0.6 - 0.9 cm LVPW Diastolic Thickness 1.3 cm 0.6 - 1.0 / 0.6 - 0.9 cm LV Relative Wall Thickness 0.6 RV Internal Dim ED PLAX 3.2 cm LA Systolic Diameter LX 3.8 cm 3.0 - 4.0 / 2.7 - 3.8 cm LV Diastolic Volume MOD BP 123.0 cm??? 67 - 155 / 56 - 104 cm??? LV Systolic Volume MOD BP 44.7 cm??? 22 - 58 / 19 - 49 cm??? LV Ejection Fraction MOD BP 63.6 % >= 55 % LV Cardiac Index MOD BP 2077.6 cm???/min???m??? LV Diastolic Volume MOD 4C 130.4 cm??? LV Systolic Volume MOD 4C 55.7 cm??? LV Ejection Fraction MOD 4C 57.3 % LV Cardiac Index MOD 4C 1982.8 cm???/min???m??? LV Diastolic Length 4C 7.3 cm LV Systolic Length 4C 6.2 cm LV Diastolic Volume MOD 2C 107.9 cm??? LV Systolic Volume MOD 2C 30.1 cm??? LV Ejection Fraction MOD 2C 72.1 % LV Cardiac Index MOD 2C 2064.8 cm???/min???m??? LV Diastolic Length 2C 6.7 cm LV Systolic Length 2C 5.0 cm LA Volume 74.6 cm??? 18 - 58 / 22 - 52 cm??? LA Volume Index 29.6 cm???/m??? 16 - 28 cm???/m??? M-MODE Aortic Root Diameter MM 3.6 cm AV Cusp Separation MM 2.3 cm DOPPLER AV Peak Velocity 170.9 cm/s AV Peak Gradient 11.7 mmHg TR Peak Velocity 283.9 cm/s TR Peak Gradient 32.2 mmHg Right Ventricular Systolic Press 37.2 mmHg FINDINGS Left Ventricle Left ventricular ejection fraction is estimated at 55-60 %. Left ventricular cavity size normal. Moderately increased septal wall thickness. Mildly increased posterior wall thickness. Moderately increased left ventricular diastolic volume. Normal left ventricular wall motion. Right Ventricle Normal right ventricular size. Mild pulmonary hypertension. Right Atrium Normal right atrial size. No right atrial thrombus or mass seen. Left Atrium Mildly increased left atrial volume. Mildly increased left atrial area. No left atrial thrombus or mass present. Mitral Valve Structurally normal mitral valve. No evidence for mitral valve prolapse. No mitral stenosis. Trace mitral regurgitation. Aortic Valve Trileaflet aortic valve. No aortic valve stenosis or regurgitation. Tricuspid Valve Structurally normal tricuspid valve. Mild tricuspid regurgitation. Pulmonic Valve Pulmonic valve not well visualized. Pericardium No pericardial effusion. Aorta Normal size aortic root and proximal ascending aorta. CONCLUSIONS Normal LV size and systolic function. Mildly enlarged left atrium. Mild mitral and tricuspid regurgitation. No pericardial effusion. No significant pulmonary hypertension. Previewed by: Dr. Herminia Helms MD (Electronically Signed) Final Date: 17 Jul 2024 10:41
[2024-07-17] MEDS ORDERED: DOCUSATE 100 MG CAP PO PRN (15:47)
[2024-07-17] MEDS ORDERED: modafiniL 100 MG TAB PO PRN (15:47)
[2024-07-17] MEDS: HEPARIN SODIUM,PORCINE 5,000 UNIT/ML 1 ML VIAL SQ SCH (15:55)
[2024-07-17] MEDS: PYRIDOXINE 50 MG TAB PO STA (17:45)
[2024-07-17] MEDS: SODIUM FERRIC GLUCONAT-SUCROSE 125 MG in SODIUM CHLORIDE 0.9% 100 ML IVPB SCH (17:45)
[2024-07-17] MEDS: ERGOCALCIFEROL 1,250 MCG (50,000 IU) CAPSULE PO SCH (17:45)
[2024-07-17] MEDS: HYDROCORTISONE 10 MG TAB PO SCH (17:46)
[2024-07-17] MEDS: MAGNESIUM OXIDE 400 MG TAB PO SCH (21:26)
[2024-07-17] MEDS: MONTELUKAST 10 MG TAB PO SCH (21:26)
--- NOTE | 2024-07-17 21:53 | P.HPIM ---
History of Present Illness H&P Date: 07/17/24 Chief Complaint: Chest pain Patient is a known history of with a past medical history of hypertension, PREETI hyperlipidemia, asthma, CVA/TIA with minimal left-sided weakness, chronic pain, obstructive sleep apnea, hypothyroidism, osteoarthritis and history of pacemaker placement due to sick sinus syndrome in 2009, laparoscopic gastric sleeve with lysis of adhesions, anxiety/depression and morbid obesity. Patient presents to ER with complaints of difficulty in breathing with exertion. Patient also feeling generalized weakness and her heart rate increases with exertion as well. Patient is also complaining having upper chest pain mainly on both shoulders with difficulty in breathing. Patient was seen by Dr. Amato previously and supposed to follow-up with her for upper endoscopy. Denied any nausea vomiting or abdominal pain or diarrhea. No cough or sputum production. No afebrile. Denied any recent illnesses. EKG on admission showed electronic atrial paced rhythm. Chest x-ray showed chronic changes without acute pulmonary process. No significant change from prior. CTA chest was done due to elevated D-dimer level. No evidence of PE. Remote injury to the right proximal humerus. Laboratory data showed WBC 7.2 hemoglobin 8.3 and platelets 423 MCV 75.4 D-dimer 0.71 BUN 24 and creatinine 1.17 and magnesium 2.5 troponin x 3 negative proBNP 828 and LDL 132 and total cholesterol 206 Influenza A B RSV and COVID-19 PCR not elevated. Review of Systems Constitutional: Patient denies any fever or chills . Generalized weakness and fatigue. Abdomen: Patient denied nausea vomiting and diarrhea and abdominal pain. Cardiovascular: Patient denies any chest pain. Does have exertional short of breath no palpitations. Occasional leg swelling. Respiratory: patient denied any cough or sputum production. Exertional dyspnea. Neurologic: Patient denied any numbness or tingling. no headache. Musculoskeletal: Patient denies any complaints of joint swelling or deformity. Skin: Negative Psychiatric: Negative Endocrine: No heat or cold intolerance. No recent weight gain. Genitourinary: No dysuria or hematuria. All other 14 point ROS negative except the above Past Medical History Past Medical History: Asthma, CVA/TIA, Eye Disorder, GERD/Reflux, Hyperlipidemia, Hypertension, Neurologic Disorder, Osteoarthritis (OA), Skin Disorder, Sleep Apnea/CPAP/BIPAP, Thyroid Disorder Additional Past Medical History / Comment(s): SSS. GUIDANT PACEMAKER. MS, RELAPSE SINCE 07/2017. DDD, Neuropathy ARMS/LEGS. Stroke 2002-sl lt sided weakness; SEV TIA'S. HX KIDNEY STONES. CHRONIC PAIN LOWER BACK, HIPS, LEGS. HX Psoriasis. Meniere's Disease. Sees shadows rt eye, intermittent double vision lt eye, "optic neuritis.' Adrenal insufficiency. SEE DR Roberts. History of Any Multi-Drug Resistant Organisms: None Reported Past Surgical History: Bariatric Surgery, Cholecystectomy, Hernia Repair, Orthopedic Surgery, Pacemaker Additional Past Surgical History / Comment(s): ORIF LT ANKLE; Pin removed). Battery Pacemaker replaced 2009, LAPAROSCOPIC GASTRIC SLEEVE WITH LYSIS OF ADHESIONS. Panniculectomy/Ventral hernia repair - REVISION PANNICULECTOMY. Past Anesthesia/Blood Transfusion Reactions: Motion Sickness Additional Past Anesthesia/Blood Transfusion Reaction / Comment(s): no hx blood transfusuion Type of Cardiac Device: Permanent Pacemaker Device Placement Date:: 2001 Past Psychological History: Anxiety, Depression Smoking Status: Never smoker Past Alcohol Use History: None Reported Past Drug Use History: None Reported - Past Family History Mother Family Medical History: Hypertension, Thyroid Disorder Daughter(s) Family Medical History: Deep Vein Thrombosis (DVT), Seizure Disorder Additional Family Medical History / Comment(s): crohn's disease Father History Unknown: Yes Family Medical History: Unable to Obtain Sister(s) Family Medical History: Hypertension Additional Family Medical History / Comment(s): prolonged QT syndrome,crohn's disease Brother(s) Family Medical History: Hypertension Son(s) Family Medical History: No Reported History Additional Family Medical History / Comment(s): ITP Medications and Allergies Home Medications Medication Instructions Recorded Confirmed Type Baclofen [Lioresal] 20 mg PO TID 11/01/13 07/16/24 History Montelukast [Singulair] 10 mg PO HS 12/19/13 07/16/24 History Multivitamins, Thera [Multivitamin 1 tab PO DAILY 02/14/15 07/16/24 History (formulary)] Clopidogrel [Plavix] 75 mg PO DAILY 09/25/15 07/16/24 History Vitamin A (10,000 Ua=9461 Mcg) 10,000 unit PO HS 11/24/15 07/16/24 History Calcium Carbonate/Vitamin D3 1 tab PO BID 03/18/18 07/16/24 History [Calcium 600-Vit D3 400 Caplet] DULoxetine HCL [Cymbalta] 60 mg PO BID 03/18/18 07/16/24 History Gabapentin [Neurontin] 900 mg PO TID 03/18/18 07/16/24 History Aspirin EC [Ecotrin] 325 mg PO DAILY 09/19/18 07/16/24 History Fludrocortisone [Florinef] 0.05 mg PO MOWEFR 09/19/18 07/16/24 History Levothyroxine Sodium [Synthroid] 50 mcg PO DAILY 09/19/18 07/16/24 History fentaNYL 25MCG/HR PATCH [Duragesic 1 patch TRANSDERM Q72H 09/19/18 07/16/24 History 25MCG/HR] oxyCODONE-APAP 10-325MG [Percocet 1 tab PO Q12H PRN 09/19/18 07/16/24 History 10-325 mg] rOPINIRole HCL [Requip] 0.5 mg PO BID 09/19/18 07/16/24 History Albuterol Nebulized [Ventolin 2.5 mg INHALATION RT-Q6H PRN 06/27/24 07/16/24 History Nebulized] Ascorbic Acid [Vitamin C with Radha 500 mg PO DAILY 06/27/24 07/16/24 History Hips] Cetirizine HCl 10 mg PO DAILY 06/27/24 07/16/24 History Dalfampridine [Dalfampridine ER] 10 mg PO BID 06/27/24 07/16/24 History Docusate [Colace] 100 mg PO DAILY PRN 06/27/24 07/16/24 History Famotidine [Pepcid] 20 mg PO BID 06/27/24 07/16/24 History Hydrocortisone [Cortef] 5 mg PO DAILY@1700 06/27/24 07/16/24 History Hydrocortisone [Cortef] 10 mg PO DAILY@1100 06/27/24 07/16/24 History Hydrocortisone [Cortef] 15 mg PO DAILY@0600 06/27/24 07/16/24 History Magnesium Oxide [Magnesium] 500 mg PO HS 06/27/24 07/16/24 History Meclizine [Antivert] 12.5 mg PO Q8H PRN 06/27/24 07/16/24 History Metoprolol Tartrate [Lopressor] 50 mg PO TID 06/27/24 07/16/24 History Nystatin 100,000 Unit/gm Powd 1 applic TOPICAL BID PRN 06/27/24 07/16/24 History [Mycostatin Powder] Ocrelizumab [Ocrevus] 1 dose IV Q6M 06/27/24 07/16/24 History Omeprazole 20 mg PO DAILY 06/27/24 07/16/24 History Zinc Gluconate [Zinc] 50 mg PO DAILY 06/27/24 07/16/24 History hydrOXYzine HCL [Atarax] 25 mg PO TID 06/27/24 07/16/24 History modafiniL 100 mg PO DAILY PRN 06/27/24 07/16/24 History Biotin [Biotin Disolve] 5,000 mcg PO DAILY 07/16/24 07/16/24 History Melatonin 10 mg PO HS 07/16/24 07/16/24 History Pyridoxine HCl (Vitamin B6) 100 mg PO DAILY 07/16/24 07/16/24 History [Vitamin B-6] Triamcinolone 0.5% Cream [Kenalog 1 applic TOPICAL BID PRN 07/16/24 07/16/24 History 0.5% Cream] Allergies Allergy/AdvReac Type Severity Reaction Status Date / Time amlodipine besylate Allergy Swelling Verified 07/16/24 20:13 [From Norvasc] glatiramer acetate Allergy HIGH Verified 07/16/24 20:13 [From Copaxone] FEVER. PSYCHOTIC EPISODE PER PT,MENINGITIS pregabalin [From Lyrica] Allergy Unknown Verified 07/16/24 20:13 zolpidem tartrate Allergy FELT LIKE Verified 07/16/24 20:13 [From Ambien] SPIDERS CRAWLING ON HER SKIN vancomycin AdvReac Severe Hypotension Verified 07/16/24 20:13 Physical Exam Vitals: Vital Signs Temp Pulse Resp BP Pulse Ox 07/17/24 10:40 73 18 116/58 96 07/17/24 08:42 98.2 F 60 18 108/56 94 L 07/17/24 05:38 97.9 F 66 17 106/54 97 07/17/24 00:00 60 14 95 07/16/24 23:06 98.2 F 65 20 132/82 95 07/16/24 20:09 66 19 94 L 07/16/24 18:27 63 20 123/72 96 07/16/24 15:52 97.6 F 80 22 129/86 94 L Intake and Output 07/16/24 07/17/24 07/17/24 22:59 06:59 14:59 Other: Weight 130.635 kg PHYSICAL EXAMINATION: Patient is lying in the bed comfortably, no acute distress, awake alert and oriented.. HEENT: Normocephalic. Neck is supple. Pupils reactive. Nostrils clear. Oral cavity is moist. Neck reveals no JVD, carotid bruits, or thyromegaly. CHEST EXAMINATION: Trachea is central. Symmetrical expansion. Bibasilar diminished sounds. Lung cassidy clear to auscultation and percussion. CARDIAC: Normal S1, S2 with no gallops. No murmurs ABDOMEN: Soft. Bowel sounds normal. No organomegaly. No abdominal bruits. Extremities: reveal no edema. No clubbing or cyanosis Neurologically awake, alert, oriented x3 able to move all extremities. No gross focal deficits noted Skin: No rash or skin lesions. Psychiatric: Coperative. Nonsuicidal Musculoskeletal: No joint swelling or deformity. Normal range of motion. Results CBC & Chem 7: 07/16/24 17:06 07/16/24 17:06 Labs: Abnormal Lab Results - Last 24 Hours (Table) 07/16/24 07/16/24 07/16/24 Range/Units 17:06 17:06 17:06 RBC 3.58 L (4.10-5.20) 10*6/uL Hgb 8.3 L (12.0-15.0) g/dL Hct 27.0 L (37.2-46.3) % MCV 75.4 L (80.0-97.0) fL MCH 23.2 L (27.0-32.0) pg MCHC 30.7 L (32.0-37.0) g/dL MPV 9.1 L (9.5-12.2) fL D-Dimer 0.71 H (<0.60) mg/L FEU BUN 24 H (7-17) mg/dL Creatinine 1.17 H (0.52-1.04) mg/dL Magnesium 2.5 H (1.6-2.3) mg/dL AST 47 H (14-36) U/L Cholesterol (0.00-200.00) mg/dL LDL Cholesterol, Calc (0.0-131.0) mg/dL 07/16/24 Range/Units 17:06 RBC (4.10-5.20) 10*6/uL Hgb (12.0-15.0) g/dL Hct (37.2-46.3) % MCV (80.0-97.0) fL MCH (27.0-32.0) pg MCHC (32.0-37.0) g/dL MPV (9.5-12.2) fL D-Dimer (<0.60) mg/L FEU BUN (7-17) mg/dL Creatinine (0.52-1.04) mg/dL Magnesium (1.6-2.3) mg/dL AST (14-36) U/L Cholesterol 206.00 H (0.00-200.00) mg/dL LDL Cholesterol, Calc 132.6 H (0.0-131.0) mg/dL Thrombosis Risk Factor Assmnt - DVT/VTE Prophylaxis DVT/VTE Prophylaxis: Pharmacologic Prophylaxis ordered Assessment and Plan Assessment: Exertional dyspnea and atypical chest pain. Ruled out ACS. Anemia likely contributing Sick sinus syndrome with history of permanent pacemaker placement Obstructive sleep apnea on CPAP at home History of CVA/TIA with minimal left-sided weakness Chronic pain Hypothyroidism Hyperlipidemia Hypertension History of iron deficiency History of laparoscopic gastric sleeve surgery Chronic pain Morbid obesity with BMI 47.9 DVT prophylaxis with heparin subcu. GI prophylaxis with PPI Plan: Patient be continued on telemonitoring. Serial EKG and troponin x 3 negative. CTA showed no evidence of pulmonary embolism. 2D echocardiogram was ordered. Cardiology is on board. Started on home medications and iron supplementation. Continue to monitor H&H. Encourage ambulation. Time with Patient: Greater than 30
[2024-07-17] MEDS: MELATONIN 5 MG TABLET PO SCH (23:11)
[2024-07-18] MEDS: LEVOTHYROXINE 50 MCG TAB PO SCH (05:32)
[2024-07-18] MEDS: HYDROCORTISONE 10 MG TAB PO SCH ×2 (06:31→12:22)
[2024-07-18] MEDS: PANTOPRAZOLE 40 MG TABLET PO SCH (08:24)
[2024-07-18] MEDS: FLUDROCORTISONE 0.1 MG TAB PO SCH (08:25)
[2024-07-18 08:26] LABS: Basophils # (A) 0.05 X 10*3/uL (0.00-0.10); Basophils % (A) 0.8 %; Eosinophils # (A) 0.29 X 10*3/uL (0.04-0.35); Eosinophils % (A) 4.6 %; HGB 7.8 g/dL (12.0-15.0); Lymphocytes # (A) 1.23 X 10*3/uL (0.90-5.00); Lymphocytes % (A) 19.6 %; MCH 22.5 pg (27.0-32.0); MCHC 28.9 g/dL (32.0-37.0); MCV 77.8 FL (80.0-97.0); Mean Platelet Volume 9.1 FL (9.5-12.2); Monocytes % (A) 12.7 %; NRBC Per 100 WBC 0 X 10*3/uL (0.00-0.01); Neutrophils # (A) 3.89 X 10*3/uL (1.80-7.70); Platelet Count 389 X 10*3/uL (140-440); RBC 3.47 X 10*6/uL (4.10-5.20); RDW 18.2 % (11.5-14.5); WBC 6.28 X 10*3/uL (4.50-10.00)
[2024-07-18] MEDS: ALBUTEROL NEBULIZED 2.5 MG/3 ML INHALATION PRN (08:26)
[2024-07-18 08:41] LABS: BUN/Creat Ratio 12.89 Ratio (12.00-20.00); Blood Urea Nitrogen 11.6 mg/dL (9.0-27.0); Calcium 8.8 mg/dL (8.7-10.3); Carbon Dioxide 27.4 mmol/L (21.6-31.8); Chloride 106 mmol/L (96-109); Glucose 85 mg/dL (70-110); Potassium 3.9 mmol/L (3.5-5.5); Sodium 142 mmol/L (135-145)
--- NOTE | 2024-07-18 11:24 | P.PN ---
Subjective HISTORY OF PRESENTING ILLNESS This is a pleasant 58-year-old female past medical history significant for sick sinus syndrome status post ruminant pacemaker implantation, hypertension and morbid obesity. She follows in the office with Dr. Watts. We have been asked to see in consultation for shortness of breath. She indicates she has been experiencing shortness of breath for the past couple of days with pain in her shoulders. She is very sedentary and admits that she does very minimal activity at home. She had a history of bariatric surgery in the past and is following now with Dr. Amato for further weight loss opportunities. EKG reveals atrial paced rhythm heart rate of 60. Chest x-ray is negative for any acute cardiopulmonary process, CTA negative for pulmonary embolism. Laboratory data reviewed, hemoglobin 8.3, creatinine 1.17, troponin negative x 3 and NT proBNP 828. Most recent stress test in the office was a Lexiscan stress test in 2021 with an ejection fraction of 67% and no reversible ischemia. 07/18/2024 Patient seen and examined resting comfortably sitting up in bed having breakfast. Blood pressure 156/85 heart rate 76 afebrile maintaining oxygen saturation on nasal cannula. Echocardiogram reveals preserved LV systolic function, mild mitral and tricuspid regurgitation with no significant pulmonary hypertension and no pericardial effusion. PHYSICAL EXAMINATION CONSTITUTIONAL: No apparent distress. HEENT: Head is normocephalic. Pupils are equal, round. Sclerae anicteric. Mucous membranes of the mouth are moist. No JVD. No carotid bruit. CHEST EXAMINATION: Lungs are clear to auscultation. No chest wall tenderness is noted on palpation or with deep breathing. HEART EXAMINATION: Regular rate and rhythm. S1, S2 heard. No murmurs, gallops or rub. ABDOMEN: Soft, nontender. EXTREMITIES: 2+ peripheral pulses, no lower extremity edema and no calf tenderness. NEUROLOGIC EXAMINATION: Patient is awake, alert and oriented x3. ASSESSMENT Chest pain, atypical Sick sinus syndrome status post permanent pacemaker implantation Hypertension Morbid obesity PLAN Continue current medical regimen per primary care team. We will follow along as needed, please call with further questions or concerns. She can be discharged home and follow-up as an outpatient with Dr. Deshpande. Nurse Practitioner note has been reviewed, I agree with a documented findings and plan of care. Patient was seen and examined. Objective - Vital Signs Vital signs: Vital Signs Temp 98.7 F 07/18/24 07:00 Pulse 76 07/18/24 08:39 Resp 16 07/18/24 07:00 BP 156/85 07/18/24 07:00 Pulse Ox 96 07/18/24 07:00 FiO2 Intake & Output 07/17/24 07/18/24 07/18/24 18:59 06:59 18:59 Intake Total 540 Balance 540 Weight 130.635 kg Intake: Oral 540 Other: Voiding Method Toilet # Voids 2 - Labs CBC & Chem 7: 07/18/24 04:48 07/18/24 04:48 Labs: Abnormal Lab Results - Last 24 Hours (Table) 07/18/24 Range/Units 04:48 RBC 3.47 L (4.10-5.20) X 10*6/uL Hgb 7.8 L (12.0-15.0) g/dL Hct 27.0 L (37.2-46.3) % MCV 77.8 L (80.0-97.0) FL MCH 22.5 L (27.0-32.0) pg MCHC 28.9 L (32.0-37.0) g/dL RDW 18.2 H (11.5-14.5) % MPV 9.1 L (9.5-12.2) FL
--- NOTE | 2024-07-19 01:08 | P.PN ---
Subjective Progress Note Date: 07/18/24 Patient is a known history of with a past medical history of hypertension, PREETI hyperlipidemia, asthma, CVA/TIA with minimal left-sided weakness, chronic pain, obstructive sleep apnea, hypothyroidism, osteoarthritis and history of pacemaker placement due to sick sinus syndrome in 2009, laparoscopic gastric sleeve with lysis of adhesions, anxiety/depression and morbid obesity. Patient presents to ER with complaints of difficulty in breathing with exertion. Patient also feeling generalized weakness and her heart rate increases with exertion as well. Patient is also complaining having upper chest pain mainly on both shoulders with difficulty in breathing. Patient was seen by Dr. Amato previously and supposed to follow-up with her for upper endoscopy. Denied any nausea vomiting or abdominal pain or diarrhea. No cough or sputum production. No afebrile. Denied any recent illnesses. EKG on admission showed electronic atrial paced rhythm. Chest x-ray showed chronic changes without acute pulmonary process. No significant change from prior. CTA chest was done due to elevated D-dimer level. No evidence of PE. Remote injury to the right proximal humerus. Laboratory data showed WBC 7.2 hemoglobin 8.3 and platelets 423 MCV 75.4 D-dimer 0.71 BUN 24 and creatinine 1.17 and magnesium 2.5 troponin x 3 negative proBNP 828 and LDL 132 and total cholesterol 206 Influenza A B RSV and COVID-19 PCR not elevated. 07/18/2024 Patient is seen in follow-up today with cardiology following and has evaluated the patient recommending outpatient follow-up and cleared the patient for discharge. Patient continues to report significant shortness of breath and has had a drop in hemoglobin. Hemoglobin is currently 7.8 and other labs reviewed and within normal limits with a sodium of 142, potassium 3.9, BUN 11.6 with a creatinine of 0.9. Patient is afebrile although continues to report shortness of breath with exertion and patient was scheduled outpatient with general surgery for possible EGD. Will consult general surgery Dr. Coleman and appreciate input and recommendations. Patient was also scheduled to undergo swallow study which will be performed on 07/19/2024. Encouraged increased activity as tolerated and sitting up in the chair more frequently. Patient is reporting leg cramps and spasms, asking for her Requip to be resumed. Review of systems: Constitutional: No reports of fatigue, fever, or chills Cardiovascular: No reports of chest pain or palpitations Respiratory: reports of intermittent shortness of breath or cough GI: No reports of nausea, vomiting, or diarrhea : No reports of dysuria or retention Neurovascular: No reports of weakness or numbness All medications have been reviewed Physical exam: Gen: This is a 58-year-old female who is awake, alert and oriented x 3, well- developed, appears older than stated age, morbidly obese, pale HEENT: Head is atraumatic, normocephalic. Pupils equal, round. Sclerae is anicteric. NECK: Supple. No JVD. No lymphadenopathy. No thyromegaly. LUNGS: Diminished breath sounds bilaterally otherwise clear to auscultation. No wheezes or rhonchi. No intercostal retractions. HEART: S1, S2 are muffled ABDOMEN: Soft. Morbidly obese bowel sounds are present. No masses. No tenderness. EXTREMITIES: No pedal edema. No calf tenderness. NEUROLOGICAL: Patient is awake, alert and oriented x3. Cranial nerves 2 through 12 are grossly intact. Assessment: Exertional dyspnea and atypical chest pain. Ruled out ACS. Anemia likely contributing Sick sinus syndrome with history of permanent pacemaker placement Obstructive sleep apnea on CPAP at home History of CVA/TIA with minimal left-sided weakness Chronic pain Hypothyroidism Hyperlipidemia Hypertension History of iron deficiency anemia, hemoglobin is 7.8 History of laparoscopic gastric sleeve surgery Chronic pain Morbid obesity with BMI 47.9 DVT prophylaxis with heparin subcu. GI prophylaxis with PPI Full code Plan: Patient be continued on telemonitoring. Serial EKG and troponin x 3 negative. CTA showed no evidence of pulmonary embolism. Cardiology following and has cleared the patient recommending outpatient follow-up Patient continues to have low hemoglobin and is currently 7.8 today. Receiving IV iron infusion and will also consult general surgery for possible EGD/colonoscopy. Patient is scheduled undergo modified barium swallow study on 07/19/2024 Will continue iron infusion and follow-up on repeat labs. Transfuse if 7 or less Encouraged increase activity as tolerated The impression and plan of care has been dictated by Bozena Kirby, Nurse Practitioner as directed. Dr. Ameena MD I have performed a history and examination and MDM of this patient, discussed the same with the dictator, and agree with the dictator's assessment and plan as written ,documented as a scribe. Based on total visit time, I have performed more than 50% of the visit. Objective - Vital Signs Vital signs: Vital Signs Temp 98.7 F 07/18/24 07:00 Pulse 76 07/18/24 08:39 Resp 16 07/18/24 07:00 BP 156/85 07/18/24 07:00 Pulse Ox 96 07/18/24 07:00 FiO2 Intake & Output 07/17/24 07/18/24 07/18/24 18:59 06:59 18:59 Intake Total 540 Balance 540 Weight 130.635 kg Intake: Oral 540 Other: Voiding Method Toilet # Voids 2 - Labs CBC & Chem 7: 07/18/24 04:48 07/18/24 04:48 Labs: Abnormal Lab Results - Last 24 Hours (Table) 07/18/24 Range/Units 04:48 RBC 3.47 L (4.10-5.20) X 10*6/uL Hgb 7.8 L (12.0-15.0) g/dL Hct 27.0 L (37.2-46.3) % MCV 77.8 L (80.0-97.0) FL MCH 22.5 L (27.0-32.0) pg MCHC 28.9 L (32.0-37.0) g/dL RDW 18.2 H (11.5-14.5) % MPV 9.1 L (9.5-12.2) FL
[2024-07-19 07:23] VITALS: BP 123/70; PULSE 71; RESP 18; TEMP 97.8
--- NOTE | 2024-07-19 09:19 | FL ---
EXAMINATION TYPE: FL barium swallow DATE OF EXAM: 07/19/2024 LIMITED UGI: CLINICAL INDICATION: Female, 58 years old with history of Outpatient to inpatient, low hgb, sob, dysp hagia with choking on foods for a few months. History of gastric sleeve surgery 2013. On steroids sin ce 2017 due to adrenal insufficiency. TECHNIQUE: Esophagram is performed utilizing thin liquid barium. A total of 0.58 minutes of fluorosco pic time was utilized during procedure and 47 images obtained. TOTAL DAP= n/p. COMPARISON: Prior upper GI study February 07, 2014. Prior chest CT July 16, 2024 FINDINGS: The patient swallowed contrast without difficulty or delay. Esophageal peristalsis and mo tility are within normal limits. There is a small size fixed hiatal hernia. There is mild delay in f low through proximal anastomosis into gastric sleeve. There is mild delay in flow from distal sleeve and anastomosis into pylorus and duodenal sweep. Patient remains asymptomatic without increased nause a or gagging. There is no evidence of contrast extravasation to suggest leak. IMPRESSION: No evidence of leak or significant obstruction. A fixed recurrent small size hiatal herni a is noted. [facility], , 07/19/2024 9:17 AM
[2024-07-19 10:13] LABS: Basophils # (A) 0.04 X 10*3/uL (0.00-0.10); Basophils % (A) 0.5 %; Eosinophils # (A) 0.29 X 10*3/uL (0.04-0.35); Eosinophils % (A) 3.7 %; HCT 28.1 % (37.2-46.3); HGB 8.1 g/dL (12.0-15.0); Lymphocytes # (A) 1.45 X 10*3/uL (0.90-5.00); Lymphocytes % (A) 18.6 %; MCH 22.6 pg (27.0-32.0); MCHC 28.8 g/dL (32.0-37.0); MCV 78.5 FL (80.0-97.0); Mean Platelet Volume 9.2 FL (9.5-12.2); Monocytes # (A) 0.96 X 10*3/uL (0.20-1.00); Monocytes % (A) 12.3 %; NRBC Per 100 WBC 0 X 10*3/uL (0.00-0.01); Neutrophils # (A) 5.04 X 10*3/uL (1.80-7.70); Neutrophils % (A) 64.6 %; Platelet Count 404 X 10*3/uL (140-440); RBC 3.58 X 10*6/uL (4.10-5.20); RDW 18.6 % (11.5-14.5)
[2024-07-19 10:29] LABS: BUN/Creat Ratio 10.33 Ratio (12.00-20.00); Blood Urea Nitrogen 9.3 mg/dL (9.0-27.0); Calcium 8.7 mg/dL (8.7-10.3); Carbon Dioxide 29.1 mmol/L (21.6-31.8); Chloride 103 mmol/L (96-109); Glucose 83 mg/dL (70-110); Potassium 3.9 mmol/L (3.5-5.5); Sodium 143 mmol/L (135-145)
--- NOTE | 2024-07-19 11:01 | P.GSCN ---
History of Present Illness Consult date: 07/19/24 History of present illness: Patient seen and evaluated. She was recently assessed in the bariatric center with outpatient labs demonstrated expected anemia. Patient was arranged to have outpatient iron infusions however currently getting the hospital. She denies any blood in stools. No signs of bleeding. Outpatient EGD colonoscopy may be performed. Patient stable for discharge from a general surgical standpoint. Past Medical History Past Medical History: Asthma, CVA/TIA, Eye Disorder, GERD/Reflux, Hyperlipidemia, Hypertension, Neurologic Disorder, Osteoarthritis (OA), Skin Disorder, Sleep Apnea/CPAP/BIPAP, Thyroid Disorder Additional Past Medical History / Comment(s): SSS. GUIDANT PACEMAKER. MS, RELAPSE SINCE 07/2017. DDD, Neuropathy ARMS/LEGS. Stroke 2002- lt sided weakness; SEV TIA'S. HX KIDNEY STONES. CHRONIC PAIN LOWER BACK, HIPS, LEGS. HX Psoriasis. Meniere's Disease. Sees shadows rt eye, intermittent double vision lt eye, "optic neuritis.' Adrenal insufficiency. SEE H&P. History of Any Multi-Drug Resistant Organisms: None Reported Past Surgical History: Bariatric Surgery, Cholecystectomy, Hernia Repair, Orth opedic Surgery, Pacemaker Additional Past Surgical History / Comment(s): ORIF LT ANKLE; Pin removed). Battery Pacemaker replaced 2009, LAPAROSCOPIC GASTRIC SLEEVE WITH LYSIS OF ADHESIONS. Panniculectomy/Ventral hernia repair - REVISION PANNICULECTOMY. Past Anesthesia/Blood Transfusion Reactions: Motion Sickness Additional Past Anesthesia/Blood Transfusion Reaction / Comm: no hx blood transfusuion Type of Cardiac Device: Permanent Pacemaker Device Placement Date:: 2001 Past Psychological History: Anxiety, Depression Smoking Status: Never smoker Past Alcohol Use History: None Reported Past Drug Use History: None Reported - Past Family History Mother Family Medical History: Hypertension, Thyroid Disorder Daughter(s) Family Medical History: Deep Vein Thrombosis (DVT), Seizure Disorder Additional Family Medical History / Comment(s): crohn's disease Father History Unknown: Yes Family Medical History: Unable to Obtain Sister(s) Family Medical History: Hypertension Additional Family Medical History / Comment(s): prolonged QT syndrome,crohn's disease Brother(s) Family Medical History: Hypertension Son(s) Family Medical History: No Reported History Additional Family Medical History / Comment(s): ITP Medications and Allergies Home Medications Medication Instructions Recorded Confirmed Type Baclofen [Lioresal] 20 mg PO TID 11/01/13 07/16/24 History Montelukast [Singulair] 10 mg PO HS 12/19/13 07/16/24 History Multivitamins, Thera [Multivitamin 1 tab PO DAILY 02/14/15 07/16/24 History (formulary)] Clopidogrel [Plavix] 75 mg PO DAILY 09/25/15 07/16/24 History Vitamin A (10,000 Mk=5913 Mcg) 10,000 unit PO HS 11/24/15 07/16/24 History Calcium Carbonate/Vitamin D3 1 tab PO BID 03/18/18 07/16/24 History [Calcium 600-Vit D3 400 Caplet] DULoxetine HCL [Cymbalta] 60 mg PO BID 03/18/18 07/16/24 History Gabapentin [Neurontin] 900 mg PO TID 03/18/18 07/16/24 History Aspirin EC [Ecotrin] 325 mg PO DAILY 09/19/18 07/16/24 History Fludrocortisone [Florinef] 0.05 mg PO MOWEFR 09/19/18 07/16/24 History Levothyroxine Sodium [Synthroid] 50 mcg PO DAILY 09/19/18 07/16/24 History fentaNYL 25MCG/HR PATCH [Duragesic 1 patch TRANSDERM Q72H 09/19/18 07/16/24 History 25MCG/HR] oxyCODONE-APAP 10-325MG [Percocet 1 tab PO Q12H PRN 09/19/18 07/16/24 History 10-325 mg] rOPINIRole HCL [Requip] 0.5 mg PO BID 09/19/18 07/16/24 History Albuterol Nebulized [Ventolin 2.5 mg INHALATION RT-Q6H PRN 06/27/24 07/16/24 History Nebulized] Ascorbic Acid [Vitamin C with Radha 500 mg PO DAILY 06/27/24 07/16/24 History Hips] Cetirizine HCl 10 mg PO DAILY 06/27/24 07/16/24 History Dalfampridine [Dalfampridine ER] 10 mg PO BID 06/27/24 07/16/24 History Docusate [Colace] 100 mg PO DAILY PRN 06/27/24 07/16/24 History Famotidine [Pepcid] 20 mg PO BID 06/27/24 07/16/24 History Hydrocortisone [Cortef] 5 mg PO DAILY@1700 06/27/24 07/16/24 History Hydrocortisone [Cortef] 10 mg PO DAILY@1100 06/27/24 07/16/24 History Hydrocortisone [Cortef] 15 mg PO DAILY@0600 06/27/24 07/16/24 History Magnesium Oxide [Magnesium] 500 mg PO HS 06/27/24 07/16/24 History Meclizine [Antivert] 12.5 mg PO Q8H PRN 06/27/24 07/16/24 History Metoprolol Tartrate [Lopressor] 50 mg PO TID 06/27/24 07/16/24 History Nystatin 100,000 Unit/gm Powd 1 applic TOPICAL BID PRN 06/27/24 07/16/24 History [Mycostatin Powder] Ocrelizumab [Ocrevus] 1 dose IV Q6M 06/27/24 07/16/24 History Omeprazole 20 mg PO DAILY 06/27/24 07/16/24 History Zinc Gluconate [Zinc] 50 mg PO DAILY 06/27/24 07/16/24 History hydrOXYzine HCL [Atarax] 25 mg PO TID 06/27/24 07/16/24 History modafiniL 100 mg PO DAILY PRN 06/27/24 07/16/24 History Biotin [Biotin Disolve] 5,000 mcg PO DAILY 07/16/24 07/16/24 History Melatonin 10 mg PO HS 07/16/24 07/16/24 History Pyridoxine HCl (Vitamin B6) 100 mg PO DAILY 07/16/24 07/16/24 History [Vitamin B-6] Triamcinolone 0.5% Cream [Kenalog 1 applic TOPICAL BID PRN 07/16/24 07/16/24 History 0.5% Cream] Allergies Allergy/AdvReac Type Severity Reaction Status Date / Time amlodipine besylate Allergy Swelling Verified 07/16/24 20:13 [From Norvasc] glatiramer acetate Allergy HIGH Verified 07/16/24 20:13 [From Copaxone] FEVER. PSYCHOTIC EPISODE PER PT,MENINGITIS pregabalin [From Lyrica] Allergy Unknown Verified 07/16/24 20:13 zolpidem tartrate Allergy FELT LIKE Verified 07/16/24 20:13 [From Ambien] SPIDERS CRAWLING ON HER SKIN vancomycin AdvReac Severe Hypotension Verified 07/16/24 20:13 Surgical - Exam Vital Signs Temp Pulse Resp BP Pulse Ox 97.6 F 80 22 129/86 94 L 07/16/24 15:52 07/16/24 15:52 07/16/24 15:52 07/16/24 15:52 07/16/24 15:52 Results - Labs 07/19/24 06:23 07/19/24 06:23 Abnormal Lab Results - Last 24 Hours (Table) 07/19/24 07/19/24 Range/Units 06:23 06:23 RBC 3.58 L (4.10-5.20) X 10*6/uL Hgb 8.1 L (12.0-15.0) g/dL Hct 28.1 L (37.2-46.3) % MCV 78.5 L (80.0-97.0) FL MCH 22.6 L (27.0-32.0) pg MCHC 28.8 L (32.0-37.0) g/dL RDW 18.6 H (11.5-14.5) % MPV 9.2 L (9.5-12.2) FL BUN/Creatinine Ratio 10.33 L (12.00-20.00) Ratio Diabetes panel 07/19/24 Range/Units 06:23 Sodium 143 (135-145) mmol/L Potassium 3.9 (3.5-5.5) mmol/L Chloride 103 (96-109) mmol/L Carbon Dioxide 29.1 (21.6-31.8) mmol/L BUN 9.3 (9.0-27.0) mg/dL Creatinine 0.9 (0.6-1.5) mg/dL Glucose 83 (70-110) mg/dL Calcium 8.7 (8.7-10.3) mg/dL Calcium panel 07/19/24 Range/Units 06:23 Calcium 8.7 (8.7-10.3) mg/dL Pituitary panel 07/19/24 Range/Units 06:23 Sodium 143 (135-145) mmol/L Potassium 3.9 (3.5-5.5) mmol/L Chloride 103 (96-109) mmol/L Carbon Dioxide 29.1 (21.6-31.8) mmol/L BUN 9.3 (9.0-27.0) mg/dL Creatinine 0.9 (0.6-1.5) mg/dL Glucose 83 (70-110) mg/dL Calcium 8.7 (8.7-10.3) mg/dL Adrenal panel 07/19/24 Range/Units 06:23 Sodium 143 (135-145) mmol/L Potassium 3.9 (3.5-5.5) mmol/L Chloride 103 (96-109) mmol/L Carbon Dioxide 29.1 (21.6-31.8) mmol/L BUN 9.3 (9.0-27.0) mg/dL Creatinine 0.9 (0.6-1.5) mg/dL Glucose 83 (70-110) mg/dL Calcium 8.7 (8.7-10.3) mg/dL
--- NOTE | 2024-07-23 09:52 | P.DS ---
Providers Date of admission: 07/16/24 20:19 Expected date of discharge: 07/19/24 Attending physician: Herminio Lindquist Consults: 07/16/24 20:19 Consult Physician Urgent Consulting Provider: Yg Rosen Consult Reason/Comments: cp Do you want consulting provider notified?: Yes 07/18/24 16:04 Consult Physician Urgent Consulting Provider: Mariama Amato Consult Reason/Comments: anemia, symptomatic, egd/colon? Do you want consulting provider notified?: Yes Primary care physician: Suresh Doty Hospital Course: Final diagnosis Exertional dyspnea and atypical chest pain. Ruled out ACS. Anemia likely contributing Sick sinus syndrome with history of permanent pacemaker placement Obstructive sleep apnea on CPAP at home History of CVA/TIA with minimal left-sided weakness Chronic pain Hypothyroidism Hyperlipidemia Hypertension History of iron deficiency anemia, hemoglobin is 7.8 History of laparoscopic gastric sleeve surgery Chronic pain Morbid obesity with BMI 47.9 DVT prophylaxis GI prophylaxis Full code Discharge disposition Patient is being discharged in a stable condition with guarded prognosis to home. Patient will follow-up with Dr. Doty in the outpatient setting upon discharge. Patient is to continue with current medications and iron supplementation and outpatient follow-up with general surgery as scheduled for possible further endoscopic intervention. Patient to follow-up with primary care provider with repeat labs and also senior software quality analyst outpatient total time taken is greater than 35 minutes. Hospital course This is a 58-year-old female who was recently admitted with chest pain with exertional dyspnea being closely monitored with cardiology following. Patient was evaluated by cardiology and cleared for discharge recommending outpatient follow-up. Patient also with noted anemia and hemoglobin dropping iron deficiency is noted and was evaluated by general surgery with no plans of intervention while inpatient recommending outpatient follow-up with endoscopic. Patient reports to feeling improved with no bleeding noted and hemoglobin is stable and will continue on iron supplementation outpatient. Patient did receive IV iron during hospitalization. Patient also should follow-up with hematology outpatient regarding this anemia. Please refer to other consultation notes for further HPI. Currently no reports of chest pain, shortness of breath, or palpitations. Patient is afebrile. No reports of nausea or vomiting and patient is tolerating diet. Patient will be discharged home today. Guarded prognosis and high risk for readmissions Physical exam: Gen: This is a 58-year-old female who is awake, alert and oriented x 3, well- developed, morbidly obese, appears older than stated age HEENT: Head is atraumatic, normocephalic. Pupils equal, round. Sclerae is anicteric. NECK: Supple. No JVD. No lymphadenopathy. No thyromegaly. LUNGS: Diminished breath sounds bilaterally otherwise clear to auscultation. No wheezes or rhonchi. No intercostal retractions. HEART: S1, S2 are muffled ABDOMEN: Soft. Morbidly obese bowel sounds are present. No masses. No tenderness. EXTREMITIES: No pedal edema. No calf tenderness. NEUROLOGICAL: Patient is awake, alert and oriented x3. Cranial nerves 2 through 12 are grossly intact. Please refer to medication reconciliation sheet for a list of medications. The impression and plan of care has been dictated by Bozena Kirby, Nurse Practitioner as directed. Dr. Ameena MD I have performed a history and examination and MDM of this patient, discussed the same with the dictator, and agree with the dictator's assessment and plan as written ,documented as a scribe. Based on total visit time, I have performed more than 50% of the visit. Patient Condition at Discharge: Fair Plan - Discharge Summary New Discharge Prescriptions: New Gabapentin [Neurontin] 300 mg PO TID cap Ergocalciferol [Vitamin D2 (1250 Mcg = 71140 Iu)] 1,250 mcg PO Q7D 30 Days #5 cap Continue Baclofen [Lioresal] 20 mg PO TID Montelukast [Singulair] 10 mg PO HS Multivitamins, Thera [Multivitamin (formulary)] 1 tab PO DAILY Clopidogrel [Plavix] 75 mg PO DAILY Vitamin A (10,000 Cn=8500 Mcg) 10,000 unit PO HS Calcium Carbonate/Vitamin D3 [Calcium 600-Vit D3 400 Caplet] 1 tab PO BID DULoxetine HCL [Cymbalta] 60 mg PO BID Aspirin EC [Ecotrin] 325 mg PO DAILY fentaNYL 25MCG/HR PATCH [Duragesic 25MCG/HR] 1 patch TRANSDERM Q72H Fludrocortisone [Florinef] 0.05 mg PO MOWEFR Levothyroxine Sodium [Synthroid] 50 mcg PO DAILY oxyCODONE-APAP 10-325MG [Percocet 10-325 mg] 1 tab PO Q12H PRN PRN Reason: Pain rOPINIRole HCL [Requip] 0.5 mg PO BID Cetirizine HCl 10 mg PO DAILY Docusate [Colace] 100 mg PO DAILY PRN PRN Reason: Constipation Dalfampridine [Dalfampridine ER] 10 mg PO BID Hydrocortisone [Cortef] 5 mg PO DAILY@1700 Magnesium Oxide [Magnesium] 500 mg PO HS modafiniL 100 mg PO DAILY PRN PRN Reason: narcolepsy Nystatin 100,000 Unit/gm Powd [Mycostatin Powder] 1 applic TOPICAL BID PRN PRN Reason: Skin Irritation Omeprazole 20 mg PO DAILY Albuterol Nebulized [Ventolin Nebulized] 2.5 mg INHALATION RT-Q6H PRN PRN Reason: Shortness Of Breath Famotidine [Pepcid] 20 mg PO BID Hydrocortisone [Cortef] 10 mg PO DAILY@1100 Hydrocortisone [Cortef] 15 mg PO DAILY@0600 hydrOXYzine HCL [Atarax] 25 mg PO TID Meclizine [Antivert] 12.5 mg PO Q8H PRN PRN Reason: Vertigo Metoprolol Tartrate [Lopressor] 50 mg PO TID Ocrelizumab [Ocrevus] 1 dose IV Q6M Zinc Gluconate [Zinc] 50 mg PO DAILY Ascorbic Acid [Vitamin C with Radha Hips] 500 mg PO DAILY Triamcinolone 0.5% Cream [Kenalog 0.5% Cream] 1 applic TOPICAL BID PRN PRN Reason: Skin Irritation Melatonin 10 mg PO HS Biotin [Biotin Disolve] 5,000 mcg PO DAILY Pyridoxine HCl (Vitamin B6) [Vitamin B-6] 100 mg PO DAILY Discontinued Gabapentin [Neurontin] 900 mg PO TID Discharge Medication List Baclofen [Lioresal] 20 mg PO TID 11/01/13 [History] Montelukast [Singulair] 10 mg PO HS 12/19/13 [History] Multivitamins, Thera [Multivitamin (formulary)] 1 tab PO DAILY 02/14/15 [History] Clopidogrel [Plavix] 75 mg PO DAILY 09/25/15 [History] Vitamin A (10,000 Xr=1676 Mcg) 10,000 unit PO HS 11/24/15 [History] Calcium Carbonate/Vitamin D3 [Calcium 600-Vit D3 400 Caplet] 1 tab PO BID 03/18/18 [History] DULoxetine HCL [Cymbalta] 60 mg PO BID 03/18/18 [History] Aspirin EC [Ecotrin] 325 mg PO DAILY 09/19/18 [History] Fludrocortisone [Florinef] 0.05 mg PO MOWEFR 09/19/18 [History] Levothyroxine Sodium [Synthroid] 50 mcg PO DAILY 09/19/18 [History] fentaNYL 25MCG/HR PATCH [Duragesic 25MCG/HR] 1 patch TRANSDERM Q72H 09/19/18 [History] oxyCODONE-APAP 10-325MG [Percocet 10-325 mg] 1 tab PO Q12H PRN 09/19/18 [History] rOPINIRole HCL [Requip] 0.5 mg PO BID 09/19/18 [History] Albuterol Nebulized [Ventolin Nebulized] 2.5 mg INHALATION RT-Q6H PRN 06/27/24 [History] Ascorbic Acid [Vitamin C with Radha Hips] 500 mg PO DAILY 06/27/24 [History] Cetirizine HCl 10 mg PO DAILY 06/27/24 [History] Dalfampridine [Dalfampridine ER] 10 mg PO BID 06/27/24 [History] Docusate [Colace] 100 mg PO DAILY PRN 06/27/24 [History] Famotidine [Pepcid] 20 mg PO BID 06/27/24 [History] Hydrocortisone [Cortef] 5 mg PO DAILY@1700 06/27/24 [History] Hydrocortisone [Cortef] 10 mg PO DAILY@1100 06/27/24 [History] Hydrocortisone [Cortef] 15 mg PO DAILY@0600 06/27/24 [History] Magnesium Oxide [Magnesium] 500 mg PO HS 06/27/24 [History] Meclizine [Antivert] 12.5 mg PO Q8H PRN 06/27/24 [History] Metoprolol Tartrate [Lopressor] 50 mg PO TID 06/27/24 [History] Nystatin 100,000 Unit/gm Powd [Mycostatin Powder] 1 applic TOPICAL BID PRN 06/27/24 [History] Ocrelizumab [Ocrevus] 1 dose IV Q6M 06/27/24 [History] Omeprazole 20 mg PO DAILY 06/27/24 [History] Zinc Gluconate [Zinc] 50 mg PO DAILY 06/27/24 [History] hydrOXYzine HCL [Atarax] 25 mg PO TID 06/27/24 [History] modafiniL 100 mg PO DAILY PRN 06/27/24 [History] Biotin [Biotin Disolve] 5,000 mcg PO DAILY 07/16/24 [History] Melatonin 10 mg PO HS 07/16/24 [History] Pyridoxine HCl (Vitamin B6) [Vitamin B-6] 100 mg PO DAILY 07/16/24 [History] Triamcinolone 0.5% Cream [Kenalog 0.5% Cream] 1 applic TOPICAL BID PRN 07/16/24 [History] Ergocalciferol [Vitamin D2 (1250 Mcg = 23482 Iu)] 1,250 mcg PO Q7D 30 Days #5 cap 07/19/24 [Rx] Gabapentin [Neurontin] 300 mg PO TID cap 07/19/24 [Rx] Follow up [facility]ment(s[facility]Ref[facility] [place] [facility] - 08/01/24 3:00 pm Suresh Doty [Primary Care Provider] - 1-2 days Rodrigo Strauss MD [STAFF PHYSICIAN] - 1 Week (Recommend follow-up with hematology regarding anemia) Ambulatory/Diagnostic Orders: Complete Blood Count w/diff [LAB.AMB] Time Frame: 3 Days, Location: None Selected Patient Instructions/Handouts: Chest Pain (DC) Activity/Diet/Wound Care/Special Instructions: Activity limited until follow-up Follow-up with primary care provider Continue taking medications as prescribed Continue with multivitamin daily with iron Follow-up hematology outpatient regarding anemia workup Follow-up with general surgery as scheduled Discharge Disposition: HOME SELF-CARE
== END 2024-07-19 13:56 | disposition home or self-care (01) | DRG 812 ==
LOC: EC 15:50 → 6NMEDSUR 20:19 → OBSVTOIN 20:19 → 6NMEDSUR 22:34
PROVIDERS: ADMIT Internal Medicine; ATTEND Internal Medicine
DX: D50.9 Iron deficiency anemia, unspecified (principal); I49.5 Sick sinus syndrome; I69.954 Hemiplegia and hemiparesis following unspecified cerebrovascular disease affecting left non-dominant side; Z68.42 Body mass index [BMI] 45.0-49.9, adult; E03.9 Hypothyroidism, unspecified; I10 Essential (primary) hypertension; F32.A Depression, unspecified; J45.909 Unspecified asthma, uncomplicated; E66.01 Morbid (severe) obesity due to excess calories; G47.33 Obstructive sleep apnea (adult) (pediatric); G89.29 Other chronic pain; F41.9 Anxiety disorder, unspecified; E78.5 Hyperlipidemia, unspecified; Z95.0 Presence of cardiac pacemaker; Z98.84 Bariatric surgery status; Z79.02 Long term (current) use of antithrombotics/antiplatelets; Z79.82 Long term (current) use of aspirin; Z79.890 Hormone replacement therapy; Z79.899 Other long term (current) drug therapy; Z79.891 Long term (current) use of opiate analgesic
CPT/HCPCS: 36415; 71046; 71275; 74220; 80048; 80053; 80061; 83605; 83735; 83880; 84484; 85025; 85379; 85610; 85730; 87636; 93005; 93306; 94640; 99285

== ENCOUNTER → 2024-08-29 | Outpatient (CLI) | payer MEDICARE ==
[2024-08-29 15:25] VITALS: BP 118/73; PULSE 56; RESP 16; TEMP 98; BMI 46.4
--- NOTE | 2024-08-29 16:28 | P.BASOAP ---
Subjective Progress Note Date: 08/29/24 TSH was still elevated. Lost7 pounds without trying. MyFItness adjustments 40 30 30. 100 gram protein. FU 1 month Objective - Vital Signs Vital signs: Vital Signs Temp 98 F 08/29/24 15:22 Pulse 56 L 08/29/24 15:22 Resp 16 08/29/24 15:22 BP 118/73 08/29/24 15:22 Pulse Ox FiO2 Intake & Output 08/28/24 08/29/24 08/29/24 18:59 06:59 18:59 Weight 126.552 kg Assessment/Plan Plan: Date: 08/29/24 Initial Weight: 166.786 kg Initial BMI: 61.2 Current Weight: 126.552 kg Current BMI: 46.4 Type of Surgery: Vertical Sleeve Gastrectomy Total Volume in Band: Previous Volume: Volume Removed: Volume Added: Band Size:
== END ==
LOC: BARWHC3 14:53
PROVIDERS: ATTEND Surgery Plastic and Reconstructive Surgery
DX: E66.01 Morbid (severe) obesity due to excess calories (principal); Z88.6 Allergy status to analgesic agent; Z88.8 Allergy status to other drugs, medicaments and biological substances; Z88.0 Allergy status to penicillin; Z88.1 Allergy status to other antibiotic agents; Z68.42 Body mass index [BMI] 45.0-49.9, adult
CPT/HCPCS: 99211